=== PATIENT | male | born 1945 | race Caucasian/White ===

== ENCOUNTER 2017-09-22 14:18 | Inpatient (IN) | payer MEDICAID, MEDICARE ==
--- NOTE | 2017-09-22 14:29 | ED Physician Chart ---
ED Chief Complaint/HPI - Patient Information Date Seen:: 09/22/17 Time Seen:: 14:15 Chief Complaint:: Agitation History of Present Illness:: onset x 3 days of agitation, confusion, and aggressive behavior; no report of trauma, H/As, S/T, neck pain, C/P, SOB, Abd. pain, A/N/V/D/C, fever, chills, or urinary s/s Historian:: Patient, EMS Review:: Nurse's Note Reviewed, Old Chart Reviewed, EMS run form Reviewed ED Review of Systems - Review of Systems General/Constitutional: No fever, No chills, No weight loss, No weakness, No diaphoresis, No edema, No loss of appetite Skin: No skin lesions, No rash, No bruising Head: No headache, No light-headedness Eyes: No loss of vision, No pain, No diplopia ENT: No earache, No nasal drainage, No sore throat, No tinnitus Neck: No neck pain, No swelling, No thyromegaly, No stiffness, No mass noted Cardio Vascular: No chest pain, No palpitations, No PND, No orthopnea, No edema Pulmonary: No SOB, No cough, No sputum, No wheezing GI: No nausea, No vomiting, No diarrhea, No pain, No melena, No hematochezia, No constipation, No hematemesis G/U: No dysuria, No frequency, No hematuria, No nacturia Musculoskeletal: No bone or joint pain, No back pain, No muscle pain Endocrine: No polyuria, No polydipsia Psychiatric: Prior psych history, No depression, Anxiety, No suicidal ideation, No homicidal ideation, No auditory hallucination, No visual hallucination Hematopoietic: No bruising, No lymphadenopathy Allergic/Immuno: No urticaria, No angioedema Neurological: No syncope, No focal symptoms, No weakness, No paresthesia, No headache, No seizure, No dizziness, No confusion, No vertigo ED Past Medical History - Past Medical History Obtainable: Yes Past Medical History: HTN, Arthritis, Dementia Family History: HTN Social History: Non Smoker, No Alcohol, No Drug Use, Single, Care Facility Surgical History: None Psychiatricy History: Bipolar, Dementia Medication: Reviewed ED Physical Exam - Physical Examination General/Constitutional: Awake, Well-developed, well-nourished, Alert, No distress, GCS 15, Non-toxic appearing, Ambulatory Head: Atraumatic Eyes: Lids, conjuctiva normal, PERRL, EOMI Skin: Nl inspection, No rash, No skin lesions, No ecchymosis, Well hydrated, No lymphadenopathy ENMT: External ears, nose nl, TM canals nl, Nasal exam nl, Lips, teeth, gums nl , Oropharynx nl, Tonsils nl Neck: Nontender, Full ROM w/o pain, No JVD, No nuchal rigidity, No bruit, No mass, No stridor Respiratory: Nl effort/Exclusion, Clear to Auscultation, No Wheeze/Rhonchi/Rales Cardio Vascular: RRR, No murmur, gallop, rubs, NL S1 S2, Carotid/Femoral/Distal pulses equal bilaterally GI: No tenderness/rebounding/guarding, No organomegaly, No hernia, Normal BS's, Nondistended, No mass/bruits, No McBurney tenderness : No CVA tenderness Extremities: No tenderness or effusion, Full ROM, normal strength in all extremities, No edema, Normal digits & nails Neuro/Psych: Alert/oriented, DTR's symmetric, Normal sensory exam, Normal motor strength, Judgement/insight normal, Mood normal, Normal gait, No focal deficits Other Neuro/Psych comments:: + Psychomotor Agitation; no SIs; Disoriented and Confused; Mood/Affect: Labile Misc: Normal back, No paraspinal tenderness ED Labs/Radiology/EKG Results - Lab Results Comments:: unremarkabke - EKG Interpretations EKG Time:: 14:37 Rate & Rhythm: 84; NSR Comments:: RBBB; non-specific st-t changes ED Septic Shock - . Is Septic Shock (SBP<90, OR Lactate>4 mmol\L) present?: No ED Reassessment (Disposition) - Reassessment Reassessment Condition:: Improved - Diagnosis Diagnosis:: Agitation; Bipolar Disorder; Dementia; Medical Clearance - Aftercare/Follow up Instructions Aftercare/Follow-Up Instructions:: Counseled pt regarding lab results/diagnosis & need follow up, Counseled pt & family regarding lab results/diagnosis & need follow up - Patient Disposition Discharge/Transfer:: Acute Care w/in this hosp Admitted to:: [facility] Condition at Disposition:: Stable, Improved
[2017-09-22 14:46] LABS: % BASOPHILS 0.3 % (0.0-2.0); % EOSINOPHILS 1.5 % (0.0-5.0); % LYMPHOCYTES 8.3 % (20.0-50.0); % MONOCYTES 8.5 % (2.0-10.0); % NEUTROPHILS 81.4 % (40.0-80.0); EOSINOPHILE ABSOLUTE 0.1 Th/cmm (0.1-0.4); HEMATOCRIT 42.4 % (41.0-60); HEMOGLOBIN 13.8 gm/dL (12-16); LYMPHOCYTE ABSOLUTE 0.7 Th/cmm (1.5-3.0); MEAN CELL VOLUME 87.1 fl (80-99); MEAN CORPUSCULAR HEMOGLOBIN 28.3 pg (27.0-31.0); MEAN CORPUSCULAR HGB CONC 32.5 pg (28.0-36.0); MEAN PLATELET VOLUME 6.9 fl; MONOCYTE ABSOLUTE 0.8 Th/cmm (0.3-1.0); NEUTROPHILE ABSOLUTE 7.4 Th/cmm (1.8-8.0); PLATELET COUNT 249 Th/cmm (150-400); RED BLOOD COUNT 4.87 Mil/cmm (3.80-5.80); RED CELL DISTRIBUTION WIDTH 15.5 % (11.5-20.0)
[2017-09-22 15:01] LABS: ALB/GLOB RATIO 1.6 (1.0-1.8); ALBUMIN 4.2 gm/dL (4.2-5.5); ALKALINE PHOSPHATASE 74 U/L (34-104); ANION GAP 12.2 (7.0-16.0); BILIRUBIN,TOTAL 0.5 mg/dL (0.3-1.0); BUN - UREA NITROGEN 19 mg/dL (7-25); CALCIUM SERUM 9.5 mg/dL (8.6-10.3); CARBON DIOXIDE 29.1 mEq/L (21.0-31.0); CHLORIDE 100 mEq/L (98-107); CHOLESTEROL 128 mg/dL (<200); CREATININE - SERUM 0.8 mg/dL (0.7-1.3); GLUCOSE 75 mg/dL (70-105); HDL -HIGH DENSITY LIPOPROTEIN 49 mg/dL (23-92); POTASSIUM SERUM 4.3 mEq/L (3.5-5.1); SGOT 19 U/L (13-39); SGPT/ALT 16 U/L (7-52); SODIUM SERUM 137 mEq/L (136-145); TOTAL PROTEIN,SERUM 6.8 gm/dL (6.0-8.3); TRIGLYCERIDES 100 mg/dL (<150)
[2017-09-22 15:17] LABS: ACETAMINOPHEN < 10.0 ug/mL (10.0-30.0); SALICYLATES (ASPIRIN) < 25.0 mg/L (30.0-100.0)
[2017-09-22 16:12] LABS: A1C % 4.9 % (4.0-6.0)
[2017-09-22 16:25] VITALS: BP 136/66
[2017-09-22] MEDS ORDERED: Maalox 30 mL Cup PO PRN (16:55)
[2017-09-22] MEDS ORDERED: Magnesium Hydroxide (MOM) 30 mL UDC PO PRN ×2 (16:55→22:07)
[2017-09-22] MEDS ORDERED: Non-Formulary Item 1 EA (Glipizide [Glucotrol] 10 MG) PO SCH (17:00)
[2017-09-22] MEDS ORDERED: Non-Formulary Item 1 EA (Metformin Hcl [Fortamet] 1,000 MG) PO SCH (17:00)
--- NOTE | 2017-09-22 22:48 | History & Physical ---
ADMIT DATE: 09/22/2017 HISTORY OF PRESENT ILLNESS: The patient is a 71-year-old male with long history of diabetes mellitus, gouty arthritis, dementia, psychosis, admitted to [facility] under Dr. Ji's service. The patient is a poor historian. PAST MEDICAL HISTORY: Significant for diabetes mellitus, gouty arthritis, dementia and psychosis. PAST SURGICAL HISTORY: No recent surgery. ALLERGIES: RISPERDAL. SOCIAL HISTORY: No smoking, no alcohol, no drug. FAMILY HISTORY: Noncontributory. MEDICATIONS: Follow admission reconciliation. REVIEW OF SYSTEMS: RENAL SYSTEM: No history of chronic renal disorder. CARDIOVASCULAR SYSTEM: No coronary artery disease. ENDOCRINE SYSTEM: History of diabetes mellitus. GASTROINTESTINAL SYSTEM: No upper or lower gastrointestinal bleed. NEUROLOGICAL SYSTEM: No seizure disorder. MUSCULOSKELETAL SYSTEM: He has gouty arthritis. HEMATOLOGICAL: No bleeding tendencies. RESPIRATORY SYSTEM: No asthma. GENITOURINARY SYSTEM: No dysuria or hematuria. PHYSICAL EXAMINATION: GENERAL: He is awake, not coherent. VITAL SIGNS: His temperature is 98.1, heart rate 91, blood pressure 136/66. HEENT: Normocephalic. Pupils reactive to light and accommodation. Sclerae clear. NECK: Supple. Negative for lymphadenopathy, JVD or bruit. CHEST: Entry of air bilaterally normal. No rhonchi or wheezing. HEART: S1, S2 normal. No gallop rhythm. ABDOMEN: Soft, bowel sounds positive. EXTREMITIES: No edema. NEUROLOGIC: He is awake, not coherent. No focal motor or sensory deficit. LABORATORY DATA: White blood cell 9, hemoglobin 13.8, hematocrit 42.4, platelet 249. Sodium 137, potassium 4.3, BUN 90, creatinine 0.8. ASSESSMENT: 1. Diabetes mellitus. 2. Gouty arthritis. 3. Dementia. 4. Psychosis. PLAN: The patient admitted to the hospital under Dr. Ji's service. MEDICAL PROBLEMS ADDRESSED DURING HOSPITALIZATION: Psychosis, dementia. MEDICAL PROBLEMS ADDRESSED AT DISCHARGE: Diabetes mellitus, gouty arthritis. The patient is medically stable for activity. Thank Dr. Ji for asking me to see your patient. JOB# [id number]
[2017-09-23] MEDS ORDERED: PIOGLITAZONE HCL 45 MG PO SCH (09:00)
[2017-09-23] MEDS ORDERED: Non-Formulary Item 1 EA (Multivitamin [Multivitamins] 1 CAP) PO SCH (09:00)
[2017-09-23] MEDS ORDERED: ALLOPURINOL 300 MG PO SCH (09:00)
[2017-09-23] MEDS ORDERED: ARIPIPRAZOLE 30 MG PO SCH (09:00)
[2017-09-23] MEDS: Multivitamin Tab PO SCH (09:10)
--- NOTE | 2017-09-23 22:21 | Internal Medicine Prog Note ---
Internal Medicine Subjective - Subjective Service Date: 09/23/17 Patient seen and examined:: with staff Patient is:: arousable, in bed, confused Per staff patient has:: no adverse event Internal Medicine Objective - Results Result Diagrams: 09/22/17 14:35 09/22/17 14:35 Recent Labs: Laboratory Last Values WBC 9.0 Th/cmm (4.8-10.8) 09/22/17 14:35 RBC 4.87 Mil/cmm (3.80-5.80) 09/22/17 14:35 Hgb 13.8 gm/dL (12-16) 09/22/17 14:35 Hct 42.4 % (41.0-60) 09/22/17 14:35 MCV 87.1 fl (80-99) 09/22/17 14:35 MCH 28.3 pg (27.0-31.0) 09/22/17 14:35 MCHC Differential 32.5 pg (28.0-36.0) 09/22/17 14:35 RDW 15.5 % (11.5-20.0) 09/22/17 14:35 Plt Count 249 Th/cmm (150-400) 09/22/17 14:35 MPV 6.9 fl 09/22/17 14:35 Neutrophils % 81.4 % (40.0-80.0) H 09/22/17 14:35 Lymphocytes % 8.3 % (20.0-50.0) L 09/22/17 14:35 Monocytes % 8.5 % (2.0-10.0) 09/22/17 14:35 Eosinophils % 1.5 % (0.0-5.0) 09/22/17 14:35 Basophils % 0.3 % (0.0-2.0) 09/22/17 14:35 Sodium 137 mEq/L (136-145) 09/22/17 14:35 Potassium 4.3 mEq/L (3.5-5.1) 09/22/17 14:35 Chloride 100 mEq/L (98-107) 09/22/17 14:35 Carbon Dioxide 29.1 mEq/L (21.0-31.0) 09/22/17 14:35 Anion Gap 12.2 (7.0-16.0) 09/22/17 14:35 BUN 19 mg/dL (7-25) 09/22/17 14:35 Creatinine 0.8 mg/dL (0.7-1.3) 09/22/17 14:35 Est GFR ( Amer) TNP 09/22/17 14:35 Est GFR (Non-Af Amer) TNP 09/22/17 14:35 BUN/Creatinine Ratio 23.8 09/22/17 14:35 Glucose 75 mg/dL (70-105) 09/22/17 14:35 POC Glucose 92 MG/DL (70 - 105) 09/23/17 20:54 Hemoglobin A1c % 4.9 % (4.0-6.0) 09/22/17 14:35 Calcium 9.5 mg/dL (8.6-10.3) 09/22/17 14:35 Total Bilirubin 0.5 mg/dL (0.3-1.0) 09/22/17 14:35 AST 19 U/L (13-39) 09/22/17 14:35 ALT 16 U/L (7-52) 09/22/17 14:35 Alkaline Phosphatase 74 U/L (34-104) 09/22/17 14:35 Total Protein 6.8 gm/dL (6.0-8.3) 09/22/17 14:35 Albumin 4.2 gm/dL (4.2-5.5) 09/22/17 14:35 Globulin 2.6 gm/dL 09/22/17 14:35 Albumin/Globulin Ratio 1.6 (1.0-1.8) 09/22/17 14:35 Triglycerides 100 mg/dL (<150) 09/22/17 14:35 Cholesterol 128 mg/dL (<200) 09/22/17 14:35 LDL Cholesterol Direct 74 mg/dL (75-193) L 09/22/17 14:35 HDL Cholesterol 49 mg/dL (23-92) 09/22/17 14:35 TSH 1.28 uIU/ml (0.34-5.60) 09/22/17 14:35 Salicylates < 25.0 mg/L (30.0-100.0) L 09/22/17 14:35 Acetaminophen < 10.0 ug/mL (10.0-30.0) L 09/22/17 14:35 Ethyl Alcohol < 10 mg/dL (0-10) 09/22/17 14:35 - Physical Exam Vitals and I&O: Vital Signs Temp 99.8 F 09/23/17 21:23 Pulse 100 09/23/17 21:23 Resp 19 09/23/17 21:23 BP 136/79 09/23/17 21:23 Pulse Ox 95 09/23/17 21:23 Intake & Output 09/23/17 09/23/17 09/24/17 06:59 18:59 06:59 Intake Total 300 1200 120 Balance 300 1200 120 Intake: Oral 300 1200 120 Other: # Voids 1 3 1 # Bowel Movements 0 0 Active Medications: Current Medications Acetaminophen (Tylenol) 650 mg PO Q4HR PRN PRN Reason: Mild Pain / Temp above 100 Stop: 11/21/17 16:54 Al Hydrox/Mg Hydrox/Simethicone (Maalox) 30 ml PO Q4HR PRN PRN Reason: GI DISTRESS Stop: 11/21/17 16:54 Allopurinol (Zyloprim) 300 mg PO DAILY [facility] Stop: 11/22/17 08:59 Last Admin: 09/23/17 09:10 Dose: 300 mg Aripiprazole (Abilify) 30 mg PO HS [facility] PRN Reason: Protocol Stop: 11/23/17 20:59 Chlorpromazine (Thorazine) 75 mg PO HS SH[facility]IA PRN Reason: Protocol Stop: 11/21/17 20:59 Last Admin: 09/23/17 20:56 Dose: 75 mg Docusate Sodium (Colace) 250 mg PO DAILY [facility] Stop: 11/22/17 08:59 Last Admin: 09/23/17 09:10 Dose: 250 mg Fluoxetine HCl (Prozac) 20 mg PO DAILY [facility] PRN Reason: Protocol Stop: 11/22/17 08:59 Last Admin: 09/23/17 09:10 Dose: 20 mg Gabapentin (Neurontin) 100 mg PO TID [facility] Stop: 11/21/17 20:59 Last Admin: 09/23/17 20:56 Dose: 100 mg Glipizide (Glucotrol) 10 mg PO BID [facility] Stop: 11/22/17 08:59 Last Admin: 09/23/17 17:36 Dose: 10 mg Lorazepam (Ativan) 0.5 mg PO Q4HR PRN; Protocol PRN Reason: Anxiety Stop: 10/22/17 16:54 Magnesium Hydroxide (Milk Of Magnesia) 30 ml PO HS PRN PRN Reason: IF ORDERED STOOL SOFTENERS INE Stop: 11/21/17 22:06 Metformin HCl (Glucophage) 1,000 mg PO BID [facility] Stop: 11/22/17 08:59 Last Admin: 09/23/17 17:36 Dose: 1,000 mg Multivitamins/Vitamin C (Theragran) 1 tab PO DAILY [facility] Stop: 11/22/17 08:59 Last Admin: 09/23/17 09:10 Dose: 1 tab Pioglitazone HCl (Actos) 45 mg PO DAILY [facility] Stop: 11/22/17 08:59 Last Admin: 09/23/17 09:10 Dose: 45 mg Quetiapine Fumarate (Seroquel) 300 mg PO HS [facility] PRN Reason: Protocol Stop: 11/21/17 20:59 Last Admin: 09/23/17 20:56 Dose: 300 mg Trihexyphenidyl HCl (Artane) 2 mg PO BID [facility] Stop: 11/21/17 16:59 Last Admin: 09/23/17 17:36 Dose: 2 mg Zolpidem Tartrate (Ambien) 5 mg PO HS PRN PRN Reason: Insomnia Stop: 11/21/17 16:54 General: demented HEENT: NC/AT, PERRLA, EOMI, anicteric sclerae, throat clear Neck: Supple, No JVD, No thyromegaly, +2 carotid pulse wo bruit Lungs: CTAB Cardiovascular: RRR, Normal S1, Normal S2, without murmur Abdomen: soft, non-tender, non-distended Extremities: clear Neurological: no change - Procedures Procedures: Procedures Procedure Code Date BRONCHOSCOPY/LUNG BX EACH 19072 05/01/01 C.A.T. SCAN OF HEAD 87.03 09/16/95 CLOSED ENDOSCOPIC BIOPSY OF LUNG 33.27 05/01/01 DX BRONCHOSCOPE/BRUSH [id number] 05/01/01 ELECTROCARDIOGRAPH MONIT 89.54 09/16/95 ENDOSCOPIC BRONCHIAL BX 33.24 05/01/01 EXC H-F-NK-SP B9+SADE 2.1-3 79838 08/08/[address] [facility] PSYCHOTHERAPY 25008 12/15/01 NASAL LACERATION SUTURE 21.81 09/16/95 OTHER GROUP THERAPY 94.44 12/15/01 OTHER LOCAL DESTRUC SKIN 86.3 08/08/99 OXYGEN ENRICHMENT NEC 93.96 09/16/95 PHYSICAL THERAPY NEC 93.39 09/16/95 RPR F/E/E/N/L/M 2.5 CM/< 59207 09/16/95 Internal Medicine Assmt/Plan - Assessment Assessment: 1.DM. 2.GOUTY ARTHRITIS. 3.DEMENTIA. 4.PSYCHOSIS. - Plan Plan: CONTINUE ON CURRENT MEDICATION AND DIET.
--- NOTE | 2017-09-24 04:17 | Psychosocial Evaluation ---
DATE OF SERVICE: 09/22/2017 PSYCHIATRIC INITIAL EVALUATION AND MENTAL STATUS EXAMINATION PATIENT'S AGE: 71-year-old. SEX: Male. PHYSICIAN: Opal Ji MD, MPH CHIEF COMPLAINT: Agitation and aggressive behavior. HISTORY OF PRESENT ILLNESS: The patient is a 71-year-old male with a history of what seems to be a schizoaffective disorder. The patient was transferred from [facility] because of increased agitation and because of irritable and aggressive behavior. The patient also was unable to follow any of staff directions in [facility]. He also was in angry and in irritable mood. PAST PSYCHIATRIC HISTORY: The patient has history of schizoaffective disorder. The patient has been taking Seroquel and Prozac and Haldol. Also, is taking Thorazine and Abilify. It is not clear to me why the patient is on too many antipsychotic medications at this time. PAST MEDICAL HISTORY: No major medical problems. FAMILY PSYCHIATRIC HISTORY: Not known. SOCIAL HISTORY: The patient lives in [facility]. No known alcohol or drug use. ALLERGIES: No known allergies except questionable if the patient is allergic to Risperdal. MENTAL STATUS EXAMINATION: The patient appears older than his stated age. Confused. Unable to answer any of my questions coherently. The patient is mumbling when I am asking questions and he is looking and staring at me and seems to be responding to stimuli. The patient is agitated and preoccupied. The patient is alert, but did not answer question regarding memory or could not even tell me his birthday or the date and seems to be disoriented to place, person and date. ASSESSMENT: PRIMARY DIAGNOSIS: Schizoaffective disorder, bipolar type, severe, with psychotic features. SECONDARY DIAGNOSIS: Rule out dementia, severe, with psychotic features. MEDICAL DIAGNOSES: Diabetes mellitus and gouty arthritis. TREATMENT PLAN: We will monitor the patient's behavior and condition closely. We will discontinue Risperdal and we will continue Thorazine, Prozac, gabapentin and Seroquel and we will adjust the dose. Also, we will try to take the patient off Thorazine after further evaluation and observation. ESTIMATED LENGTH OF STAY: 5-7 days. THE PATIENT'S STRENGTHS AND WEAKNESSES: The patient's seems to be in relatively fair health. Weaknesses is ineffective coping and poor impulse control. AFTER DISCHARGE PLAN: Outpatient treatment and followup will continue as an outpatient. CRITERIA FOR DISCHARGE: The patient will not be agitated and well stabilized psychotropic medications and well established outpatient treatment plans. [facility]# [id number]
[2017-09-24] MEDS: Multivitamin Tab PO SCH (08:59)
--- NOTE | 2017-09-24 21:03 | Internal Medicine Prog Note ---
Internal Medicine Subjective - Subjective Service Date: 09/24/17 Patient seen and examined:: with staff (SHE IS LESS AGITATED) Patient is:: arousable, in bed, confused Per staff patient has:: no adverse event Internal Medicine Objective - Results Result Diagrams: 09/22/17 14:35 09/22/17 14:35 Recent Labs: Laboratory Last Values WBC 9.0 Th/cmm (4.8-10.8) 09/22/17 14:35 RBC 4.87 Mil/cmm (3.80-5.80) 09/22/17 14:35 Hgb 13.8 gm/dL (12-16) 09/22/17 14:35 Hct 42.4 % (41.0-60) 09/22/17 14:35 MCV 87.1 fl (80-99) 09/22/17 14:35 MCH 28.3 pg (27.0-31.0) 09/22/17 14:35 MCHC Differential 32.5 pg (28.0-36.0) 09/22/17 14:35 RDW 15.5 % (11.5-20.0) 09/22/17 14:35 Plt Count 249 Th/cmm (150-400) 09/22/17 14:35 MPV 6.9 fl 09/22/17 14:35 Neutrophils % 81.4 % (40.0-80.0) H 09/22/17 14:35 Lymphocytes % 8.3 % (20.0-50.0) L 09/22/17 14:35 Monocytes % 8.5 % (2.0-10.0) 09/22/17 14:35 Eosinophils % 1.5 % (0.0-5.0) 09/22/17 14:35 Basophils % 0.3 % (0.0-2.0) 09/22/17 14:35 Sodium 137 mEq/L (136-145) 09/22/17 14:35 Potassium 4.3 mEq/L (3.5-5.1) 09/22/17 14:35 Chloride 100 mEq/L (98-107) 09/22/17 14:35 Carbon Dioxide 29.1 mEq/L (21.0-31.0) 09/22/17 14:35 Anion Gap 12.2 (7.0-16.0) 09/22/17 14:35 BUN 19 mg/dL (7-25) 09/22/17 14:35 Creatinine 0.8 mg/dL (0.7-1.3) 09/22/17 14:35 Est GFR ( Amer) TNP 09/22/17 14:35 Est GFR (Non-Af Amer) TNP 09/22/17 14:35 BUN/Creatinine Ratio 23.8 09/22/17 14:35 Glucose 75 mg/dL (70-105) 09/22/17 14:35 POC Glucose 92 MG/DL (70 - 105) 09/23/17 20:54 Hemoglobin A1c % 4.9 % (4.0-6.0) 09/22/17 14:35 Calcium 9.5 mg/dL (8.6-10.3) 09/22/17 14:35 Total Bilirubin 0.5 mg/dL (0.3-1.0) 09/22/17 14:35 AST 19 U/L (13-39) 09/22/17 14:35 ALT 16 U/L (7-52) 09/22/17 14:35 Alkaline Phosphatase 74 U/L (34-104) 09/22/17 14:35 Total Protein 6.8 gm/dL (6.0-8.3) 09/22/17 14:35 Albumin 4.2 gm/dL (4.2-5.5) 09/22/17 14:35 Globulin 2.6 gm/dL 09/22/17 14:35 Albumin/Globulin Ratio 1.6 (1.0-1.8) 09/22/17 14:35 Triglycerides 100 mg/dL (<150) 09/22/17 14:35 Cholesterol 128 mg/dL (<200) 09/22/17 14:35 LDL Cholesterol Direct 74 mg/dL (75-193) L 09/22/17 14:35 HDL Cholesterol 49 mg/dL (23-92) 09/22/17 14:35 TSH 1.28 uIU/ml (0.34-5.60) 09/22/17 14:35 Salicylates < 25.0 mg/L (30.0-100.0) L 09/22/17 14:35 Acetaminophen < 10.0 ug/mL (10.0-30.0) L 09/22/17 14:35 Ethyl Alcohol < 10 mg/dL (0-10) 09/22/17 14:35 - Physical Exam Vitals and I&O: Vital Signs Temp 97.9 F 09/24/17 20:00 Pulse 94 09/24/17 20:00 Resp 19 09/24/17 20:00 BP 115/55 09/24/17 20:00 Pulse Ox 98 09/24/17 20:00 Intake & Output 09/24/17 09/24/17 09/25/17 06:59 18:59 06:59 Intake Total 180 1800 Balance 180 1800 Intake: Oral 180 1800 Other: # Voids 1 4 # Bowel Movements 0 1 Active Medications: Current Medications Acetaminophen (Tylenol) 650 mg PO Q4HR PRN PRN Reason: Mild Pain / Temp above 100 Stop: 11/21/17 16:54 Last Admin: 09/24/17 06:09 Dose: 650 mg Al Hydrox/Mg Hydrox/Simethicone (Maalox) 30 ml PO Q4HR PRN PRN Reason: GI DISTRESS Stop: 11/21/17 16:54 Allopurinol (Zyloprim) 300 mg PO DAILY [facility] Stop: 11/22/17 08:59 Last Admin: 09/24/17 08:59 Dose: 300 mg Aripiprazole (Abilify) 30 mg PO HS SHAZIA PRN Reason: Protocol Stop: 11/23/17 20:59 Last Admin: 09/24/17 20:55 Dose: 30 mg Docusate Sodium (Colace) 250 mg PO DAILY [facility] Stop: 11/22/17 08:59 Last Admin: 09/24/17 08:59 Dose: 250 mg Fluoxetine HCl (Prozac) 20 mg PO DAILY [facility] PRN Reason: Protocol Stop: 11/22/17 08:59 Last Admin: 09/24/17 08:58 Dose: 20 mg Gabapentin (Neurontin) 100 mg PO TID [facility] Stop: 11/21/17 20:59 Last Admin: 09/24/17 20:55 Dose: 100 mg Glipizide (Glucotrol) 10 mg PO BID [facility] Stop: 11/22/17 08:59 Last Admin: 09/24/17 16:38 Dose: 10 mg Lorazepam (Ativan) 0.5 mg PO Q4HR PRN; Protocol PRN Reason: Anxiety Stop: 10/22/17 16:54 Last Admin: 09/24/17 06:09 Dose: 0.5 mg Magnesium Hydroxide (Milk Of Magnesia) 30 ml PO HS PRN PRN Reason: IF ORDERED STOOL SOFTENERS INE Stop: 11/21/17 22:06 Metformin HCl (Glucophage) 1,000 mg PO BID [facility] Stop: 11/22/17 08:59 Last Admin: 09/24/17 16:38 Dose: 1,000 mg Multivitamins/Vitamin C (Theragran) 1 tab PO DAILY [facility] Stop: 11/22/17 08:59 Last Admin: 09/24/17 08:59 Dose: 1 tab Pioglitazone HCl (Actos) 45 mg PO DAILY [facility] Stop: 11/22/17 08:59 Last Admin: 09/24/17 08:58 Dose: 45 mg Quetiapine Fumarate (Seroquel) 300 mg PO HS [facility] PRN Reason: Protocol Stop: 11/21/17 20:59 Last Admin: 09/24/17 20:55 Dose: 300 mg Trihexyphenidyl HCl (Artane) 2 mg PO TID [facility] Stop: 11/23/17 08:59 Last Admin: 09/24/17 20:56 Dose: 2 mg Zolpidem Tartrate (Ambien) 5 mg PO HS PRN PRN Reason: Insomnia Stop: 11/21/17 16:54 General: demented HEENT: NC/AT, PERRLA, EOMI, anicteric sclerae, throat clear Neck: Supple, No JVD, No thyromegaly, +2 carotid pulse wo bruit Lungs: CTAB Cardiovascular: RRR, Normal S1, Normal S2, without murmur Abdomen: soft, non-tender, non-distended Extremities: clear Neurological: no change - Procedures Procedures: Procedures Procedure Code Date BRONCHOSCOPY/LUNG BX EACH 58317 05/01/01 C.A.T. SCAN OF HEAD 87.03 09/16/95 CLOSED ENDOSCOPIC BIOPSY OF LUNG 33.27 05/01/01 DX BRONCHOSCOPE/BRUSH 04888 05/01/01 ELECTROCARDIOGRAPH MONIT 89.54 09/16/95 ENDOSCOPIC BRONCHIAL BX 33.24 05/01/01 EXC H-F-NK-SP B9+SADE 2.1-3 11534 08/08/99 [facility] PSYCHOTHERAPY 86596 12/15/01 NASAL LACERATION SUTURE 21.81 09/16/95 OTHER GROUP THERAPY 94.44 12/15/01 OTHER LOCAL DESTRUC SKIN 86.3 08/08/99 OXYGEN ENRICHMENT NEC 93.96 09/16/95 PHYSICAL THERAPY NEC 93.39 09/16/95 RPR F/E/E/N/L/M 2.5 CM/< 18238 09/16/95 Internal Medicine Assmt/Plan - Assessment Assessment: 1.DM. 2.GOUTY ARTHRITIS. 3.DEMENTIA. 4.PSYCHOSIS. - Plan Plan: CONTINUE ON CURRENT MEDICATION AND DIET.
[2017-09-25] MEDS: Multivitamin Tab PO SCH (08:35)
--- NOTE | 2017-09-25 22:07 | Internal Medicine Prog Note ---
Internal Medicine Subjective - Subjective Service Date: 09/25/17 Patient seen and examined:: with staff Patient is:: arousable, in bed, confused Per staff patient has:: no adverse event Internal Medicine Objective - Results Result Diagrams: 09/22/17 14:35 09/22/17 14:35 Recent Labs: Laboratory Last Values WBC 9.0 Th/cmm (4.8-10.8) 09/22/17 14:35 RBC 4.87 Mil/cmm (3.80-5.80) 09/22/17 14:35 Hgb 13.8 gm/dL (12-16) 09/22/17 14:35 Hct 42.4 % (41.0-60) 09/22/17 14:35 MCV 87.1 fl (80-99) 09/22/17 14:35 MCH 28.3 pg (27.0-31.0) 09/22/17 14:35 MCHC Differential 32.5 pg (28.0-36.0) 09/22/17 14:35 RDW 15.5 % (11.5-20.0) 09/22/17 14:35 Plt Count 249 Th/cmm (150-400) 09/22/17 14:35 MPV 6.9 fl 09/22/17 14:35 Neutrophils % 81.4 % (40.0-80.0) H 09/22/17 14:35 Lymphocytes % 8.3 % (20.0-50.0) L 09/22/17 14:35 Monocytes % 8.5 % (2.0-10.0) 09/22/17 14:35 Eosinophils % 1.5 % (0.0-5.0) 09/22/17 14:35 Basophils % 0.3 % (0.0-2.0) 09/22/17 14:35 Sodium 137 mEq/L (136-145) 09/22/17 14:35 Potassium 4.3 mEq/L (3.5-5.1) 09/22/17 14:35 Chloride 100 mEq/L (98-107) 09/22/17 14:35 Carbon Dioxide 29.1 mEq/L (21.0-31.0) 09/22/17 14:35 Anion Gap 12.2 (7.0-16.0) 09/22/17 14:35 BUN 19 mg/dL (7-25) 09/22/17 14:35 Creatinine 0.8 mg/dL (0.7-1.3) 09/22/17 14:35 Est GFR ( Amer) TNP 09/22/17 14:35 Est GFR (Non-Af Amer) TNP 09/22/17 14:35 BUN/Creatinine Ratio 23.8 09/22/17 14:35 Glucose 75 mg/dL (70-105) 09/22/17 14:35 POC Glucose 92 MG/DL (70 - 105) 09/23/17 20:54 Hemoglobin A1c % 4.9 % (4.0-6.0) 09/22/17 14:35 Calcium 9.5 mg/dL (8.6-10.3) 09/22/17 14:35 Total Bilirubin 0.5 mg/dL (0.3-1.0) 09/22/17 14:35 AST 19 U/L (13-39) 09/22/17 14:35 ALT 16 U/L (7-52) 09/22/17 14:35 Alkaline Phosphatase 74 U/L (34-104) 09/22/17 14:35 Total Protein 6.8 gm/dL (6.0-8.3) 09/22/17 14:35 Albumin 4.2 gm/dL (4.2-5.5) 09/22/17 14:35 Globulin 2.6 gm/dL 09/22/17 14:35 Albumin/Globulin Ratio 1.6 (1.0-1.8) 09/22/17 14:35 Triglycerides 100 mg/dL (<150) 09/22/17 14:35 Cholesterol 128 mg/dL (<200) 09/22/17 14:35 LDL Cholesterol Direct 74 mg/dL (75-193) L 09/22/17 14:35 HDL Cholesterol 49 mg/dL (23-92) 09/22/17 14:35 TSH 1.28 uIU/ml (0.34-5.60) 09/22/17 14:35 Salicylates < 25.0 mg/L (30.0-100.0) L 09/22/17 14:35 Acetaminophen < 10.0 ug/mL (10.0-30.0) L 09/22/17 14:35 Ethyl Alcohol < 10 mg/dL (0-10) 09/22/17 14:35 RPR NONREACTIVE (NONREACTIVE) 09/22/17 14:35 - Physical Exam Vitals and I&O: Vital Signs Temp 97.8 F 09/25/17 20:00 Pulse 90 09/25/17 20:00 Resp 20 09/25/17 20:00 BP 125/68 09/25/17 20:00 Pulse Ox 98 09/25/17 20:00 Intake & Output 09/25/17 09/25/17 09/26/17 06:59 18:59 06:59 Intake Total 120 1200 Balance 120 1200 Intake: Oral 120 1200 Other: # Voids 3 4 # Bowel Movements 1 Stool Characteristics Formed Formed Brown Brown Active Medications: Current Medications Acetaminophen (Tylenol) 650 mg PO Q4HR PRN PRN Reason: Mild Pain / Temp above 100 Stop: 11/21/17 16:54 Last Admin: 09/24/17 06:09 Dose: 650 mg Al Hydrox/Mg Hydrox/Simethicone (Maalox) 30 ml PO Q4HR PRN PRN Reason: GI DISTRESS Stop: 11/21/17 16:54 Allopurinol (Zyloprim) 300 mg PO DAILY [facility] Stop: 11/22/17 08:59 Last Admin: 09/25/17 08:34 Dose: 300 mg Aripiprazole (Abilify) 30 mg PO HS [facility] PRN Reason: Protocol Stop: 11/23/17 20:59 Last Admin: 09/25/17 20:45 Dose: 30 mg Docusate Sodium (Colace) 250 mg PO DAILY [facility] Stop: 11/22/17 08:59 Last Admin: 09/25/17 08:35 Dose: 250 mg Fluoxetine HCl (Prozac) 20 mg PO DAILY [facility] PRN Reason: Protocol Stop: 11/22/17 08:59 Last Admin: 09/25/17 08:35 Dose: 20 mg Gabapentin (Neurontin) 100 mg PO TID [facility] Stop: 11/21/17 20:59 Last Admin: 09/25/17 20:46 Dose: 100 mg Glipizide (Glucotrol) 10 mg PO BID [facility] Stop: 11/22/17 08:59 Last Admin: 09/25/17 16:19 Dose: 10 mg Lorazepam (Ativan) 0.5 mg PO Q4HR PRN; Protocol PRN Reason: Anxiety Stop: 10/22/17 16:54 Last Admin: 09/25/17 13:29 Dose: 0.5 mg Magnesium Hydroxide (Milk Of Magnesia) 30 ml PO HS PRN PRN Reason: IF ORDERED STOOL SOFTENERS INE Stop: 11/21/17 22:06 Metformin HCl (Glucophage) 1,000 mg PO BID [facility] Stop: 11/22/17 08:59 Last Admin: 09/25/17 16:19 Dose: 1,000 mg Multivitamins/Vitamin C (Theragran) 1 tab PO DAILY [facility] Stop: 11/22/17 08:59 Last Admin: 09/25/17 08:35 Dose: 1 tab Pioglitazone HCl (Actos) 45 mg PO DAILY [facility] Stop: 11/22/17 08:59 Last Admin: 09/25/17 08:35 Dose: 45 mg Quetiapine Fumarate (Seroquel) 300 mg PO HS [facility] PRN Reason: Protocol Stop: 11/21/17 20:59 Last Admin: 09/25/17 20:45 Dose: 300 mg Trihexyphenidyl HCl (Artane) 2 mg PO TID [facility] Stop: 11/23/17 08:59 Last Admin: 09/25/17 20:45 Dose: 2 mg Zolpidem Tartrate (Ambien) 5 mg PO HS PRN PRN Reason: Insomnia Stop: 11/21/17 16:54 General: demented HEENT: NC/AT, PERRLA, EOMI, anicteric sclerae, throat clear Neck: Supple, No JVD, No thyromegaly, +2 carotid pulse wo bruit Lungs: CTAB Cardiovascular: RRR, Normal S1, Normal S2, without murmur Abdomen: soft, non-tender, non-distended Extremities: clear Neurological: no change - Procedures Procedures: Procedures Procedure Code Date BRONCHOSCOPY/LUNG BX EACH 31442 05/01/01 C.A.T. SCAN OF HEAD 87.03 09/16/95 CLOSED ENDOSCOPIC BIOPSY OF LUNG 33.27 05/01/01 DX BRONCHOSCOPE/BRUSH 92985 05/01/01 ELECTROCARDIOGRAPH MONIT 89.54 09/16/95 ENDOSCOPIC BRONCHIAL BX 33.24 05/01/01 EXC H-F-NK-SP B9+SADE 2.1-3 47254 08/08/99 GROUP PSYCHOTHERAPY 21872 12/15/01 NASAL LACERATION SUTURE 21.81 09/16/95 OTHER GROUP THERAPY 94.44 12/15/01 OTHER LOCAL DESTRUC SKIN 86.3 08/08/99 OXYGEN ENRICHMENT NEC 93.96 09/16/95 PHYSICAL THERAPY NEC 93.39 09/16/95 RPR F/E/E/N/L/M 2.5 CM/< 55418 09/16/95 Internal Medicine Assmt/Plan - Assessment Assessment: 1.DM. 2.GOUTY ARTHRITIS. 3.DEMENTIA. 4.PSYCHOSIS. - Plan Plan: CONTINUE ON CURRENT MEDICATION AND DIET.
--- NOTE | 2017-09-26 07:48 | Progress Notes ---
DATE: 09/24/2017 SUBJECTIVE: Chart reviewed and the patient interviewed. Also discussed the patient's condition with the staff and reviewed records and labs. The patient is still agitated and guarded and the patient has been going up and down the unit with his wheelchair, regardless the safety of others. The patient also is still guarded and he is still unpredictable. Also, his anxiety is more during the day. Yesterday, the patient had to be given Ativan to calm him down during the day. Otherwise, the patient compliant with taking his medications except the patient is anxious during the day and seems to have akathisia. ASSESSMENT: The patient is still agitated and psychotic, but have akathisia. TREATMENT PLAN: We will discontinue Thorazine. Also continue Abilify and Seroquel. Also we will increase the Artane to 2 mg 3 times a day and will continue to follow up closely. JOB# [id number]
[2017-09-26] MEDS: Multivitamin Tab PO SCH (09:50)
--- NOTE | 2017-09-26 10:06 | Progress Notes ---
DATE: SUBJECTIVE: Chart reviewed and the patient interviewed. Also discussed the patient's condition with the staff and reviewed records and labs. The patient is still agitated and he is still having episodes of agitation and aggression. The patient also is still having difficulty following any of staff directions. The patient also is still suspicious and paranoid. Otherwise, the patient is compliant with taking Seroquel with no side effects. ASSESSMENT: The patient is still agitated and in irritable mood. TREATMENT PLAN: Continue monitoring his behavior and his condition closely and continue to follow up. JOB# [id number]
--- NOTE | 2017-09-26 19:47 | Internal Medicine Prog Note ---
Internal Medicine Subjective - Subjective Service Date: 09/26/17 Patient seen and examined:: without staff Patient is:: arousable, in bed, confused Per staff patient has:: no adverse event Internal Medicine Objective - Results Result Diagrams: 09/22/17 14:35 09/22/17 14:35 Recent Labs: Laboratory Last Values WBC 9.0 Th/cmm (4.8-10.8) 09/22/17 14:35 RBC 4.87 Mil/cmm (3.80-5.80) 09/22/17 14:35 Hgb 13.8 gm/dL (12-16) 09/22/17 14:35 Hct 42.4 % (41.0-60) 09/22/17 14:35 MCV 87.1 fl (80-99) 09/22/17 14:35 MCH 28.3 pg (27.0-31.0) 09/22/17 14:35 MCHC Differential 32.5 pg (28.0-36.0) 09/22/17 14:35 RDW 15.5 % (11.5-20.0) 09/22/17 14:35 Plt Count 249 Th/cmm (150-400) 09/22/17 14:35 MPV 6.9 fl 09/22/17 14:35 Neutrophils % 81.4 % (40.0-80.0) H 09/22/17 14:35 Lymphocytes % 8.3 % (20.0-50.0) L 09/22/17 14:35 Monocytes % 8.5 % (2.0-10.0) 09/22/17 14:35 Eosinophils % 1.5 % (0.0-5.0) 09/22/17 14:35 Basophils % 0.3 % (0.0-2.0) 09/22/17 14:35 Sodium 137 mEq/L (136-145) 09/22/17 14:35 Potassium 4.3 mEq/L (3.5-5.1) 09/22/17 14:35 Chloride 100 mEq/L (98-107) 09/22/17 14:35 Carbon Dioxide 29.1 mEq/L (21.0-31.0) 09/22/17 14:35 Anion Gap 12.2 (7.0-16.0) 09/22/17 14:35 BUN 19 mg/dL (7-25) 09/22/17 14:35 Creatinine 0.8 mg/dL (0.7-1.3) 09/22/17 14:35 Est GFR ( Amer) TNP 09/22/17 14:35 Est GFR (Non-Af Amer) TNP 09/22/17 14:35 BUN/Creatinine Ratio 23.8 09/22/17 14:35 Glucose 75 mg/dL (70-105) 09/22/17 14:35 POC Glucose 116 MG/DL (70-105) H 09/24/17 06:27 Hemoglobin A1c % 4.9 % (4.0-6.0) 09/22/17 14:35 Calcium 9.5 mg/dL (8.6-10.3) 09/22/17 14:35 Total Bilirubin 0.5 mg/dL (0.3-1.0) 09/22/17 14:35 AST 19 U/L (13-39) 09/22/17 14:35 ALT 16 U/L (7-52) 09/22/17 14:35 Alkaline Phosphatase 74 U/L (34-104) 09/22/17 14:35 Total Protein 6.8 gm/dL (6.0-8.3) 09/22/17 14:35 Albumin 4.2 gm/dL (4.2-5.5) 09/22/17 14:35 Globulin 2.6 gm/dL 09/22/17 14:35 Albumin/Globulin Ratio 1.6 (1.0-1.8) 09/22/17 14:35 Triglycerides 100 mg/dL (<150) 09/22/17 14:35 Cholesterol 128 mg/dL (<200) 09/22/17 14:35 LDL Cholesterol Direct 74 mg/dL (75-193) L 09/22/17 14:35 HDL Cholesterol 49 mg/dL (23-92) 09/22/17 14:35 TSH 1.28 uIU/ml (0.34-5.60) 09/22/17 14:35 Salicylates < 25.0 mg/L (30.0-100.0) L 09/22/17 14:35 Acetaminophen < 10.0 ug/mL (10.0-30.0) L 09/22/17 14:35 Ethyl Alcohol < 10 mg/dL (0-10) 09/22/17 14:35 RPR NONREACTIVE (NONREACTIVE) 09/22/17 14:35 - Physical Exam Vitals and I&O: Vital Signs Temp 98.0 F 09/26/17 14:00 Pulse 90 09/26/17 14:00 Resp 20 09/26/17 14:00 BP 130/56 09/26/17 14:00 Pulse Ox 98 09/26/17 14:00 Intake & Output 09/26/17 09/26/17 09/27/17 06:59 18:59 06:59 Intake Total 180 1200 Balance 180 1200 Intake: Oral 180 1200 Other: # Voids 2 # Bowel Movements 1 Stool Characteristics Formed Formed Brown Brown Active Medications: Current Medications Acetaminophen (Tylenol) 650 mg PO Q4HR PRN PRN Reason: Mild Pain / Temp above 100 Stop: 11/21/17 16:54 Last Admin: 09/24/17 06:09 Dose: 650 mg Al Hydrox/Mg Hydrox/Simethicone (Maalox) 30 ml PO Q4HR PRN PRN Reason: GI DISTRESS Stop: 11/21/17 16:54 Allopurinol (Zyloprim) 300 mg PO DAILY [facility] Stop: 11/22/17 08:59 Last Admin: 09/26/17 09:51 Dose: 300 mg Aripiprazole (Abilify) 30 mg PO HS [facility] PRN Reason: Protocol Stop: 11/23/17 20:59 Last Admin: 09/25/17 20:45 Dose: 30 mg Docusate Sodium (Colace) 250 mg PO DAILY [facility] Stop: 11/22/17 08:59 Last Admin: 09/26/17 09:51 Dose: 250 mg Fluoxetine HCl (Prozac) 20 mg PO DAILY [facility] PRN Reason: Protocol Stop: 11/22/17 08:59 Last Admin: 09/26/17 09:50 Dose: 20 mg Gabapentin (Neurontin) 100 mg PO TID [facility] Stop: 11/21/17 20:59 Last Admin: 09/26/17 17:22 Dose: Not Given Glipizide (Glucotrol) 10 mg PO BID [facility] Stop: 11/22/17 08:59 Last Admin: 09/26/17 17:20 Dose: 10 mg Lorazepam (Ativan) 0.5 mg PO Q4HR PRN; Protocol PRN Reason: Anxiety Stop: 10/22/17 16:54 Last Admin: 09/25/17 13:29 Dose: 0.5 mg Magnesium Hydroxide (Milk Of Magnesia) 30 ml PO HS PRN PRN Reason: IF ORDERED STOOL SOFTENERS INE Stop: 11/21/17 22:06 Metformin HCl (Glucophage) 1,000 mg PO BID [facility] Stop: 11/22/17 08:59 Last Admin: 09/26/17 17:20 Dose: 1,000 mg Multivitamins/Vitamin C (Theragran) 1 tab PO DAILY [facility] Stop: 11/22/17 08:59 Last Admin: 09/26/17 09:50 Dose: 1 tab Pioglitazone HCl (Actos) 45 mg PO DAILY [facility] Stop: 11/22/17 08:59 Last Admin: 09/26/17 09:50 Dose: 45 mg Quetiapine Fumarate (Seroquel) 300 mg PO HS [facility] PRN Reason: Protocol Stop: 11/21/17 20:59 Last Admin: 09/25/17 20:45 Dose: 300 mg Trihexyphenidyl HCl (Artane) 2 mg PO TID [facility] Stop: 11/23/17 08:59 Last Admin: 09/26/17 17:22 Dose: Not Given Zolpidem Tartrate (Ambien) 5 mg PO HS PRN PRN Reason: Insomnia Stop: 11/21/17 16:54 General: demented HEENT: NC/AT, PERRLA, EOMI, anicteric sclerae, throat clear Neck: Supple, No JVD, No thyromegaly, +2 carotid pulse wo bruit Lungs: CTAB Cardiovascular: RRR, Normal S1, Normal S2, without murmur Abdomen: soft, non-tender, non-distended Extremities: clear Neurological: no change - Procedures Procedures: Procedures Procedure Code Date BRONCHOSCOPY/LUNG BX EACH 79186 05/01/01 C.A.T. SCAN OF HEAD 87.03 09/16/95 CLOSED ENDOSCOPIC BIOPSY OF LUNG 33.27 05/01/01 DX BRONCHOSCOPE/BRUSH 80519 05/01/01 ELECTROCARDIOGRAPH MONIT 89.54 09/16/95 ENDOSCOPIC BRONCHIAL BX 33.24 05/01/01 EXC H-F-NK-SP B9+SADE 2.1-3 32416 08/08/99 GROUP PSYCHOTHERAPY 08270 12/15/01 NASAL LACERATION SUTURE 21.81 09/16/95 OTHER GROUP THERAPY 94.44 12/15/01 OTHER LOCAL DESTRUC SKIN 86.3 08/08/99 OXYGEN ENRICHMENT NEC 93.96 09/16/95 PHYSICAL THERAPY NEC 93.39 09/16/95 RPR F/E/E/N/L/M 2.5 CM/< 08998 09/16/95 Internal Medicine Assmt/Plan - Assessment Assessment: 1.DM. 2.GOUTY ARTHRITIS. 3.DEMENTIA. 4.PSYCHOSIS. - Plan Plan: CONTINUE ON CURRENT MEDICATION AND DIET.
--- NOTE | 2017-09-26 23:34 | Progress Notes ---
DATE: 09/26/[address] Ji. SUBJECTIVE: Case discussed with staff of the patient and reviewed records. This is a 71-year-old male who was admitted on 09/22/2017. He has a history of schizoaffective disorder, transferred from [facility] because of increasing agitation. He is irritable and aggressive. He is unable to follow staff direction. He was very angry with a history of schizoaffective disorder. PLAN: The patient upon admission was on too many antipsychotics. His current medications are allopurinol 300 mg daily, Abilify 30 mg at bedtime, Prozac 20 mg daily, Neurontin 100 mg 3 times a day, glipizide 10 mg twice a day, Ativan 0.5 mg every four hours as needed and metformin 1000 mg twice a day, multivitamin daily, Actos 45 mg daily, Seroquel 300 mg at bedtime, and Artane 2 mg 3 times a day. The patient continues to have episodes of irritability, aggression, continues to have difficulty following directions, continues to be suspicious, paranoid. No side effects with the medication, no sedation, no nausea, no extrapyramidal symptoms. He is a high fall risk. He is on multiple antipsychotics; however, Dr. Ji made them only 2. We will continue to work the patient in group therapy, milieu therapy, and adjust medications as needed. JOB# [id number]
[2017-09-27] MEDS: Multivitamin Tab PO SCH (09:53)
--- NOTE | 2017-09-27 21:56 | Progress Notes ---
DATE: 09/27/2017 IDENTIFYING DATA: A 71-year-old male presented here for agitation and aggressive behavior with a history of schizoaffective disorder. Nursing staff reported the patient to be disengaged, withdrawn, and minimally interactive. He is currently on Abilify 30 mg a day, Colace, fluoxetine 20 mg a day, gabapentin 100 mg p.o. t.i.d., glipizide, Ativan as needed, Glucophage, Actos, Seroquel at nighttime. Today on [id number] evaluation, the patient refuses interview. He mostly looks, wakes up and then he closes his eye. to validate his emotions. He continues to refuse to intervene. MENTAL STATUS EXAMINATION: Suspicious, paranoid. ASSESSMENT AND PLAN: The patient is a 71-year-old male who continues to be paranoid. We will continue with the current psychiatrist treatment plan and goals. He is currently into antipsychotics to target the patient's treatment, refractory. [facility]# [id number]
[2017-09-28] MEDS: Multivitamin Tab PO SCH (08:38)
--- NOTE | 2017-09-28 18:33 | General Progress Note ---
Subjective - Review of Systems Service Date: 09/28/17 Subjective: awake and alert no distress Objective - Results Result Diagrams: 09/22/17 14:35 09/22/17 14:35 Recent Labs: Laboratory Last Values WBC 9.0 Th/cmm (4.8-10.8) 09/22/17 14:35 RBC 4.87 Mil/cmm (3.80-5.80) 09/22/17 14:35 Hgb 13.8 gm/dL (12-16) 09/22/17 14:35 Hct 42.4 % (41.0-60) 09/22/17 14:35 MCV 87.1 fl (80-99) 09/22/17 14:35 MCH 28.3 pg (27.0-31.0) 09/22/17 14:35 MCHC Differential 32.5 pg (28.0-36.0) 09/22/17 14:35 RDW 15.5 % (11.5-20.0) 09/22/17 14:35 Plt Count 249 Th/cmm (150-400) 09/22/17 14:35 MPV 6.9 fl 09/22/17 14:35 Neutrophils % 81.4 % (40.0-80.0) H 09/22/17 14:35 Lymphocytes % 8.3 % (20.0-50.0) L 09/22/17 14:35 Monocytes % 8.5 % (2.0-10.0) 09/22/17 14:35 Eosinophils % 1.5 % (0.0-5.0) 09/22/17 14:35 Basophils % 0.3 % (0.0-2.0) 09/22/17 14:35 Sodium 137 mEq/L (136-145) 09/22/17 14:35 Potassium 4.3 mEq/L (3.5-5.1) 09/22/17 14:35 Chloride 100 mEq/L (98-107) 09/22/17 14:35 Carbon Dioxide 29.1 mEq/L (21.0-31.0) 09/22/17 14:35 Anion Gap 12.2 (7.0-16.0) 09/22/17 14:35 BUN 19 mg/dL (7-25) 09/22/17 14:35 Creatinine 0.8 mg/dL (0.7-1.3) 09/22/17 14:35 Est GFR ( Amer) TNP 09/22/17 14:35 Est GFR (Non-Af Amer) TNP 09/22/17 14:35 BUN/Creatinine Ratio 23.8 09/22/17 14:35 Glucose 75 mg/dL (70-105) 09/22/17 14:35 POC Glucose 116 MG/DL (70-105) H 09/24/17 06:27 Hemoglobin A1c % 4.9 % (4.0-6.0) 09/22/17 14:35 Calcium 9.5 mg/dL (8.6-10.3) 09/22/17 14:35 Total Bilirubin 0.5 mg/dL (0.3-1.0) 09/22/17 14:35 AST 19 U/L (13-39) 09/22/17 14:35 ALT 16 U/L (7-52) 09/22/17 14:35 Alkaline Phosphatase 74 U/L (34-104) 09/22/17 14:35 Total Protein 6.8 gm/dL (6.0-8.3) 09/22/17 14:35 Albumin 4.2 gm/dL (4.2-5.5) 09/22/17 14:35 Globulin 2.6 gm/dL 09/22/17 14:35 Albumin/Globulin Ratio 1.6 (1.0-1.8) 09/22/17 14:35 Triglycerides 100 mg/dL (<150) 09/22/17 14:35 Cholesterol 128 mg/dL (<200) 09/22/17 14:35 LDL Cholesterol Direct 74 mg/dL (75-193) L 09/22/17 14:35 HDL Cholesterol 49 mg/dL (23-92) 09/22/17 14:35 TSH 1.28 uIU/ml (0.34-5.60) 09/22/17 14:35 Salicylates < 25.0 mg/L (30.0-100.0) L 09/22/17 14:35 Acetaminophen < 10.0 ug/mL (10.0-30.0) L 09/22/17 14:35 Ethyl Alcohol < 10 mg/dL (0-10) 09/22/17 14:35 RPR NONREACTIVE (NONREACTIVE) 09/22/17 14:35 - Physical Exam Vitals and I&O: Vital Signs Temp 98.4 F 09/28/17 16:27 Pulse 88 09/28/17 16:27 Resp 20 09/28/17 16:27 BP 113/76 09/28/17 16:27 Pulse Ox 97 09/28/17 16:27 Intake & Output 09/27/17 09/28/17 09/28/17 18:59 06:59 18:59 Intake Total 8979 895 9238 Output Total 4 Balance 7797 634 0602 Intake: Oral 7367 049 0526 Output: Urine 4 Other: # Voids 1 3 Stool Characteristics Formed Formed Formed Brown Brown Brown Active Medications: Current Medications Acetaminophen (Tylenol) 650 mg PO Q4HR PRN PRN Reason: Mild Pain / Temp above 100 Stop: 11/21/17 16:54 Last Admin: 09/24/17 06:09 Dose: 650 mg Al Hydrox/Mg Hydrox/Simethicone (Maalox) 30 ml PO Q4HR PRN PRN Reason: GI DISTRESS Stop: 11/21/17 16:54 Allopurinol (Zyloprim) 300 mg PO DAILY [facility] Stop: 11/22/17 08:59 Last Admin: 09/28/17 08:37 Dose: 300 mg Aripiprazole (Abilify) 30 mg PO HS [facility] PRN Reason: Protocol Stop: 11/23/17 20:59 Last Admin: 09/27/17 20:41 Dose: 30 mg Docusate Sodium (Colace) 250 mg PO DAILY [facility] Stop: 11/22/17 08:59 Last Admin: 09/28/17 08:38 Dose: 250 mg Fluoxetine HCl (Prozac) 20 mg PO DAILY [facility] PRN Reason: Protocol Stop: 11/22/17 08:59 Last Admin: 09/28/17 08:38 Dose: 20 mg Gabapentin (Neurontin) 100 mg PO TID [facility] Stop: 11/21/17 20:59 Last Admin: 09/28/17 14:22 Dose: Not Given Glipizide (Glucotrol) 10 mg PO BID [facility] Stop: 11/22/17 08:59 Last Admin: 09/28/17 17:10 Dose: 10 mg Lorazepam (Ativan) 0.5 mg PO Q4HR PRN; Protocol PRN Reason: Anxiety Stop: 10/22/17 16:54 Last Admin: 09/28/17 03:44 Dose: 0.5 mg Magnesium Hydroxide (Milk Of Magnesia) 30 ml PO HS PRN PRN Reason: IF ORDERED STOOL SOFTENERS INE Stop: 11/21/17 22:06 Metformin HCl (Glucophage) 1,000 mg PO BID [facility] Stop: 11/22/17 08:59 Last Admin: 09/28/17 17:10 Dose: 1,000 mg Multivitamins/Vitamin C (Theragran) 1 tab PO DAILY [facility] Stop: 11/22/17 08:59 Last Admin: 09/28/17 08:38 Dose: 1 tab Pioglitazone HCl (Actos) 45 mg PO DAILY [facility] Stop: 11/22/17 08:59 Last Admin: 09/28/17 08:38 Dose: 45 mg Quetiapine Fumarate (Seroquel) 300 mg PO HS [facility] PRN Reason: Protocol Stop: 11/21/17 20:59 Last Admin: 09/27/17 20:41 Dose: 300 mg Trihexyphenidyl HCl (Artane) 2 mg PO TID [facility] Stop: 11/23/17 08:59 Last Admin: 09/28/17 14:22 Dose: Not Given Zolpidem Tartrate (Ambien) 5 mg PO HS PRN PRN Reason: Insomnia Stop: 11/21/17 16:54 Last Admin: 09/27/17 20:41 Dose: 5 mg General: No acute distress HEENT: Atraumatic, PERRLA Neck: Supple, JVD, Thyromegaly Cardiovascular: Regular rate, Normal S1, Normal S2 Lungs: Clear to auscultation Abdomen: Bowel sounds, Soft - Procedures Procedures: Procedures Procedure Code Date BRONCHOSCOPY/LUNG BX EACH 01702 05/01/01 C.A.T. SCAN OF HEAD 87.03 09/16/95 CLOSED ENDOSCOPIC BIOPSY OF LUNG 33.27 05/01/01 DX BRONCHOSCOPE/BRUSH 52111 05/01/01 ELECTROCARDIOGRAPH MONIT 89.54 09/16/95 ENDOSCOPIC BRONCHIAL BX 33.24 05/01/01 EXC H-F-NK-SP B9+SADE 2.1-3 68683 08/08/99 GROUP PSYCHOTHERAPY 24506 12/15/01 NASAL LACERATION SUTURE 21.81 09/16/95 OTHER GROUP THERAPY 94.44 12/15/01 OTHER LOCAL DESTRUC SKIN 86.3 08/08/99 OXYGEN ENRICHMENT NEC 93.96 09/16/95 PHYSICAL THERAPY NEC 93.39 09/16/95 RPR F/E/E/N/L/M 2.5 CM/< 48385 09/16/95 Assessment/Plan - Problem List Patient Problems: All Active Problems CONFUSION, WEAKNESS, RESISTIVE TO CARE (Acute) - Assessment Assessment: 1.DM. 2.GOUTY ARTHRITIS. 3.DEMENTIA. 4.PSYCHOSIS. - Plan Plan: cont current treatment Nutritional Asmnt/Malnutr-PDOC - Dietary Evaluation Malnutrition Findings (Please click <Entered> for more info): Nutritional Asmnt/Malnutrition Start: 09/27/17 10: 26 Text: Status: Complete Freq: Document 09/27/17 10:26 ALETHEA (Rec: 09/27/17 10:44 [email or web address] [email or web address]) Nutritional Asmnt/Malnutrition Patient General Information Nutritional Screening Moderate Risk Diagnosis Psychosis Pertinent Medical Hx/Surgical Hx DM, gout, dementia, psychosis Subjective Information Patient was admitted from SNF. Current Diet Order/ Nutrition Support Mechanical soft ground, 60 gm CCHO Patient / S.O Not Indicated Pertinent Medications maalox, colace, glipizide, MOM , Metformin, Theragran Pertinent Labs (09/22) WNL Nutritional Hx/Data Height 1.68 m Height (Calculated Centimeters) 167.6 Current Weight (lbs) 63.503 kg Weight (Calculated Kilograms) 63.5 Weight (Calculated Grams) 30044.9 [place] Body Weight 142 % [place] Body Weight 98 Body Mass Index (BMI) 22.6 Weight Status Approriate GI Symptoms GI Symptoms None Last BM 09/26 x 1 Difficult in: None Food Allergies No Cultural/Ethnic/Christian Belief None indicated Usual diet at home Unknown Skin Integrity/Comment: Michael 19, Intact Current %PO Good (75-100%) Estimated Nutritional Goals BEE in Kcals: Using Current wt Calories/Kcals/Kg 25-30 kcal/kg using 63.6kg CBW Kcals Calculated ~7021-4092 kcal/day (25-30 kcal/kg) Protein: Using Current wt Protein g/k gm/kg Protein Calculated ~65 gm/day Fluid: ml ~7931-9042 ml/day (1 ml/kcal) Nutritional Problem 1. Problem Problem no nutrition diagnosis at this time. Intervention/Recommendation Comments 1. Continue current diet order as tolerated by patient. Expected Outcomes/Goals Expected Outcomes/Goals Oral intake to meet >75% of nutrient needs, weight stable, nutrition related labs remain WNL
--- NOTE | 2017-09-29 03:35 | Progress Notes ---
DATE: SUBJECTIVE: The patient was seen, chart reviewed and discussed with staff. The patient continues to be very irritable, requiring numerous redirections. According to staff, patient has been making grunting sound of what appears to be clearing his throat, often does this towards the wall. He has, however, been generally redirectable, not requiring any p.r.n. medications. He has been eating and sleeping okay. PLAN: The patient continues to be actively psychotic and unpredictable, so that he will require continued inpatient care center treatment. We will monitor on daily basis for response to treatment and titrate medications as needed. JOB# [id number]
[2017-09-29] MEDS: Multivitamin Tab PO SCH (08:41)
--- NOTE | 2017-09-29 22:25 | Internal Medicine Prog Note ---
Internal Medicine Subjective - Subjective Service Date: 09/29/17 Patient seen and examined:: without staff Patient is:: arousable, in bed, confused Per staff patient has:: no adverse event Internal Medicine Objective - Results Result Diagrams: 09/22/17 14:35 09/22/17 14:35 Recent Labs: Laboratory Last Values WBC 9.0 Th/cmm (4.8-10.8) 09/22/17 14:35 RBC 4.87 Mil/cmm (3.80-5.80) 09/22/17 14:35 Hgb 13.8 gm/dL (12-16) 09/22/17 14:35 Hct 42.4 % (41.0-60) 09/22/17 14:35 MCV 87.1 fl (80-99) 09/22/17 14:35 MCH 28.3 pg (27.0-31.0) 09/22/17 14:35 MCHC Differential 32.5 pg (28.0-36.0) 09/22/17 14:35 RDW 15.5 % (11.5-20.0) 09/22/17 14:35 Plt Count 249 Th/cmm (150-400) 09/22/17 14:35 MPV 6.9 fl 09/22/17 14:35 Neutrophils % 81.4 % (40.0-80.0) H 09/22/17 14:35 Lymphocytes % 8.3 % (20.0-50.0) L 09/22/17 14:35 Monocytes % 8.5 % (2.0-10.0) 09/22/17 14:35 Eosinophils % 1.5 % (0.0-5.0) 09/22/17 14:35 Basophils % 0.3 % (0.0-2.0) 09/22/17 14:35 Sodium 137 mEq/L (136-145) 09/22/17 14:35 Potassium 4.3 mEq/L (3.5-5.1) 09/22/17 14:35 Chloride 100 mEq/L (98-107) 09/22/17 14:35 Carbon Dioxide 29.1 mEq/L (21.0-31.0) 09/22/17 14:35 Anion Gap 12.2 (7.0-16.0) 09/22/17 14:35 BUN 19 mg/dL (7-25) 09/22/17 14:35 Creatinine 0.8 mg/dL (0.7-1.3) 09/22/17 14:35 Est GFR ( Amer) TNP 09/22/17 14:35 Est GFR (Non-Af Amer) TNP 09/22/17 14:35 BUN/Creatinine Ratio 23.8 09/22/17 14:35 Glucose 75 mg/dL (70-105) 09/22/17 14:35 POC Glucose 109 MG/DL (70 - 105) H 09/29/17 06:47 Hemoglobin A1c % 4.9 % (4.0-6.0) 09/22/17 14:35 Calcium 9.5 mg/dL (8.6-10.3) 09/22/17 14:35 Total Bilirubin 0.5 mg/dL (0.3-1.0) 09/22/17 14:35 AST 19 U/L (13-39) 09/22/17 14:35 ALT 16 U/L (7-52) 09/22/17 14:35 Alkaline Phosphatase 74 U/L (34-104) 09/22/17 14:35 Total Protein 6.8 gm/dL (6.0-8.3) 09/22/17 14:35 Albumin 4.2 gm/dL (4.2-5.5) 09/22/17 14:35 Globulin 2.6 gm/dL 09/22/17 14:35 Albumin/Globulin Ratio 1.6 (1.0-1.8) 09/22/17 14:35 Triglycerides 100 mg/dL (<150) 09/22/17 14:35 Cholesterol 128 mg/dL (<200) 09/22/17 14:35 LDL Cholesterol Direct 74 mg/dL (75-193) L 09/22/17 14:35 HDL Cholesterol 49 mg/dL (23-92) 09/22/17 14:35 TSH 1.28 uIU/ml (0.34-5.60) 09/22/17 14:35 Salicylates < 25.0 mg/L (30.0-100.0) L 09/22/17 14:35 Acetaminophen < 10.0 ug/mL (10.0-30.0) L 09/22/17 14:35 Ethyl Alcohol < 10 mg/dL (0-10) 09/22/17 14:35 RPR NONREACTIVE (NONREACTIVE) 09/22/17 14:35 - Physical Exam Vitals and I&O: Vital Signs Temp 97.6 F 09/29/17 20:13 Pulse 100 09/29/17 20:13 Resp 19 09/29/17 20:13 BP 132/91 09/29/17 20:13 Pulse Ox 95 09/29/17 20:13 Intake & Output 09/29/17 09/29/17 09/30/17 06:59 18:59 06:59 Intake Total 360 950 240 Balance 360 950 240 Intake: Oral 360 950 240 Other: # Voids 2 4 1 # Bowel Movements 0 1 Stool Characteristics Formed Formed Brown Brown Active Medications: Current Medications Acetaminophen (Tylenol) 650 mg PO Q4HR PRN PRN Reason: Mild Pain / Temp above 100 Stop: 11/21/17 16:54 Last Admin: 09/24/17 06:09 Dose: 650 mg Al Hydrox/Mg Hydrox/Simethicone (Maalox) 30 ml PO Q4HR PRN PRN Reason: GI DISTRESS Stop: 11/21/17 16:54 Allopurinol (Zyloprim) 300 mg PO DAILY [facility] Stop: 11/22/17 08:59 Last Admin: 09/29/17 08:40 Dose: 300 mg Aripiprazole (Abilify) 30 mg PO HS [facility] PRN Reason: Protocol Stop: 11/23/17 20:59 Last Admin: 09/29/17 21:14 Dose: 30 mg Docusate Sodium (Colace) 250 mg PO DAILY [facility] Stop: 11/22/17 08:59 Last Admin: 09/29/17 08:40 Dose: 250 mg Fluoxetine HCl (Prozac) 20 mg PO DAILY [facility] PRN Reason: Protocol Stop: 11/22/17 08:59 Last Admin: 09/29/17 08:41 Dose: 20 mg Gabapentin (Neurontin) 100 mg PO TID [facility] Stop: 11/21/17 20:59 Last Admin: 09/29/17 21:13 Dose: 100 mg Glipizide (Glucotrol) 10 mg PO BID [facility] Stop: 11/22/17 08:59 Last Admin: 09/29/17 17:10 Dose: 10 mg Lorazepam (Ativan) 0.5 mg PO Q4HR PRN; Protocol PRN Reason: Anxiety Stop: 10/22/17 16:54 Last Admin: 09/28/17 03:44 Dose: 0.5 mg Magnesium Hydroxide (Milk Of Magnesia) 30 ml PO HS PRN PRN Reason: IF ORDERED STOOL SOFTENERS INE Stop: 11/21/17 22:06 Metformin HCl (Glucophage) 1,000 mg PO BID [facility] Stop: 11/22/17 08:59 Last Admin: 09/29/17 17:10 Dose: 1,000 mg Multivitamins/Vitamin C (Theragran) 1 tab PO DAILY [facility] Stop: 11/22/17 08:59 Last Admin: 09/29/17 08:41 Dose: 1 tab Pioglitazone HCl (Actos) 45 mg PO DAILY [facility] Stop: 11/22/17 08:59 Last Admin: 09/29/17 08:40 Dose: 45 mg Quetiapine Fumarate (Seroquel) 300 mg PO HS [facility] PRN Reason: Protocol Stop: 11/21/17 20:59 Last Admin: 09/29/17 21:13 Dose: 300 mg Trihexyphenidyl HCl (Artane) 2 mg PO TID [facility] Stop: 11/23/17 08:59 Last Admin: 09/29/17 21:14 Dose: 2 mg Zolpidem Tartrate (Ambien) 5 mg PO HS PRN PRN Reason: Insomnia Stop: 11/21/17 16:54 Last Admin: 09/28/17 20:45 Dose: 5 mg General: demented HEENT: NC/AT, PERRLA, EOMI, anicteric sclerae, throat clear Neck: Supple, No JVD, No thyromegaly, +2 carotid pulse wo bruit Lungs: CTAB Cardiovascular: RRR, Normal S1, Normal S2, without murmur Abdomen: soft, non-tender, non-distended Extremities: clear Neurological: no change - Procedures Procedures: Procedures Procedure Code Date BRONCHOSCOPY/LUNG BX EACH 95659 05/01/01 C.A.T. SCAN OF HEAD 87.03 09/16/95 CLOSED ENDOSCOPIC BIOPSY OF LUNG 33.27 05/01/01 DX BRONCHOSCOPE/BRUSH 05/01/01 ELECTROCARDIOGRAPH MONIT 89.54 09/16/95 ENDOSCOPIC BRONCHIAL BX 33.24 05/01/01 EXC H-F-NK-SP B9+SADE 2.1-3 39943 08/08/99 GROUP PSYCHOTHERAPY 26712 12/15/01 NASAL LACERATION SUTURE 21.81 09/16/95 OTHER GROUP THERAPY 94.44 12/15/01 OTHER LOCAL DESTRUC SKIN 86.3 08/08/99 OXYGEN ENRICHMENT NEC 93.96 09/16/95 PHYSICAL THERAPY NEC 93.39 09/16/95 RPR F/E/E/N/L/M 2.5 CM/< 57153 09/16/95 Internal Medicine Assmt/Plan - Assessment Assessment: 1.DM. 2.GOUTY ARTHRITIS. 3.DEMENTIA. 4.PSYCHOSIS. - Plan Plan: CONTINUE ON CURRENT MEDICATION AND DIET. Nutritional Asmnt/Malnutr-PDOC - Dietary Evaluation Malnutrition Findings (Please click <Entered> for more info): Nutritional Asmnt/Malnutrition Start: 09/27/17 10: 26 Text: Status: Complete Freq: Document 09/27/17 10:26 ALETHEA (Rec: 09/27/17 10:44 MMULANGELICA CLARKE [email or web address]) Nutritional Asmnt/Malnutrition Patient General Information Nutritional Screening Moderate Risk Diagnosis Psychosis Pertinent Medical Hx/Surgical Hx DM, gout, dementia, psychosis Subjective Information Patient was admitted from SNF. Current Diet Order/ Nutrition Support Mechanical soft ground, 60 gm CCHO Patient / S.O Not Indicated Pertinent Medications maalox, colace, glipizide, MOM , Metformin, Theragran Pertinent Labs (09/22) WNL Nutritional Hx/Data Height 1.68 m Height (Calculated Centimeters) 167.6 Current Weight (lbs) 63.503 kg Weight (Calculated Kilograms) 63.5 Weight (Calculated Grams) 24198.9 [place] Body Weight 142 % [place] Body Weight 98 Body Mass Index (BMI) 22.6 Weight Status Approriate GI Symptoms GI Symptoms None Last BM 09/26 x 1 Difficult in: None Food Allergies No Cultural/Ethnic/Christian Belief None indicated Usual diet at home Unknown Skin Integrity/Comment: Michael 19, Intact Current %PO Good (75-100%) Estimated Nutritional Goals BEE in Kcals: Using Current wt Calories/Kcals/Kg 25-30 kcal/kg using 63.6kg CBW Kcals Calculated ~5212-4907 kcal/day (25-30 kcal/kg) Protein: Using Current wt Protein g/k gm/kg Protein Calculated ~65 gm/day Fluid: ml ~9164-4736 ml/day (1 ml/kcal) Nutritional Problem 1. Problem Problem no nutrition diagnosis at this time. Intervention/Recommendation Comments 1. Continue current diet order as tolerated by patient. Expected Outcomes/Goals Expected Outcomes/Goals Oral intake to meet >75% of nutrient needs, weight stable, nutrition related labs remain WNL
--- NOTE | 2017-09-29 23:28 | Progress Notes ---
DATE: 09/29/[address] Ji. Case discussed with staff of the patient and reviewed records. The patient continues to need redirection. Continues to be psychotic, unpredictable, and impulsive. He has very poor insight, unable to make safe plan for self-care. He is compliant with the medication with no side effects, no sedation, no nausea, and no extrapyramidal symptoms. We will continue with the patient in group therapy, milieu therapy, and adjust medications. JOB# [id number]
[2017-09-30] MEDS: Multivitamin Tab PO SCH (10:40)
--- NOTE | 2017-09-30 11:35 | Internal Medicine Prog Note ---
Internal Medicine Subjective - Subjective Service Date: 09/30/17 Patient seen and examined:: with staff Patient is:: arousable, in bed, confused Per staff patient has:: no adverse event Internal Medicine Objective - Results Result Diagrams: 09/22/17 14:35 09/22/17 14:35 Recent Labs: Laboratory Last Values WBC 9.0 Th/cmm (4.8-10.8) 09/22/17 14:35 RBC 4.87 Mil/cmm (3.80-5.80) 09/22/17 14:35 Hgb 13.8 gm/dL (12-16) 09/22/17 14:35 Hct 42.4 % (41.0-60) 09/22/17 14:35 MCV 87.1 fl (80-99) 09/22/17 14:35 MCH 28.3 pg (27.0-31.0) 09/22/17 14:35 MCHC Differential 32.5 pg (28.0-36.0) 09/22/17 14:35 RDW 15.5 % (11.5-20.0) 09/22/17 14:35 Plt Count 249 Th/cmm (150-400) 09/22/17 14:35 MPV 6.9 fl 09/22/17 14:35 Neutrophils % 81.4 % (40.0-80.0) H 09/22/17 14:35 Lymphocytes % 8.3 % (20.0-50.0) L 09/22/17 14:35 Monocytes % 8.5 % (2.0-10.0) 09/22/17 14:35 Eosinophils % 1.5 % (0.0-5.0) 09/22/17 14:35 Basophils % 0.3 % (0.0-2.0) 09/22/17 14:35 Sodium 137 mEq/L (136-145) 09/22/17 14:35 Potassium 4.3 mEq/L (3.5-5.1) 09/22/17 14:35 Chloride 100 mEq/L (98-107) 09/22/17 14:35 Carbon Dioxide 29.1 mEq/L (21.0-31.0) 09/22/17 14:35 Anion Gap 12.2 (7.0-16.0) 09/22/17 14:35 BUN 19 mg/dL (7-25) 09/22/17 14:35 Creatinine 0.8 mg/dL (0.7-1.3) 09/22/17 14:35 Est GFR ( Amer) TNP 09/22/17 14:35 Est GFR (Non-Af Amer) TNP 09/22/17 14:35 BUN/Creatinine Ratio 23.8 09/22/17 14:35 Glucose 75 mg/dL (70-105) 09/22/17 14:35 POC Glucose 109 MG/DL (70 - 105) H 09/29/17 06:47 Hemoglobin A1c % 4.9 % (4.0-6.0) 09/22/17 14:35 Calcium 9.5 mg/dL (8.6-10.3) 09/22/17 14:35 Total Bilirubin 0.5 mg/dL (0.3-1.0) 09/22/17 14:35 AST 19 U/L (13-39) 09/22/17 14:35 ALT 16 U/L (7-52) 09/22/17 14:35 Alkaline Phosphatase 74 U/L (34-104) 09/22/17 14:35 Total Protein 6.8 gm/dL (6.0-8.3) 09/22/17 14:35 Albumin 4.2 gm/dL (4.2-5.5) 09/22/17 14:35 Globulin 2.6 gm/dL 09/22/17 14:35 Albumin/Globulin Ratio 1.6 (1.0-1.8) 09/22/17 14:35 Triglycerides 100 mg/dL (<150) 09/22/17 14:35 Cholesterol 128 mg/dL (<200) 09/22/17 14:35 LDL Cholesterol Direct 74 mg/dL (75-193) L 09/22/17 14:35 HDL Cholesterol 49 mg/dL (23-92) 09/22/17 14:35 TSH 1.28 uIU/ml (0.34-5.60) 09/22/17 14:35 Salicylates < 25.0 mg/L (30.0-100.0) L 09/22/17 14:35 Acetaminophen < 10.0 ug/mL (10.0-30.0) L 09/22/17 14:35 Ethyl Alcohol < 10 mg/dL (0-10) 09/22/17 14:35 RPR NONREACTIVE (NONREACTIVE) 09/22/17 14:35 - Physical Exam Vitals and I&O: Vital Signs Temp 97.2 F 09/30/17 06:14 Pulse 86 09/30/17 06:14 Resp 20 09/30/17 06:14 BP 124/72 09/30/17 06:14 Pulse Ox 95 09/30/17 06:14 Intake & Output 09/29/17 09/30/17 09/30/17 18:59 06:59 18:59 Intake Total 950 480 Balance 950 480 Intake: Oral 950 480 Other: # Voids 4 2 # Bowel Movements 1 Stool Characteristics Formed Brown Active Medications: Current Medications Acetaminophen (Tylenol) 650 mg PO Q4HR PRN PRN Reason: Mild Pain / Temp above 100 Stop: 11/21/17 16:54 Last Admin: 09/24/17 06:09 Dose: 650 mg Al Hydrox/Mg Hydrox/Simethicone (Maalox) 30 ml PO Q4HR PRN PRN Reason: GI DISTRESS Stop: 11/21/17 16:54 Allopurinol (Zyloprim) 300 mg PO DAILY [facility] Stop: 11/22/17 08:59 Last Admin: 09/30/17 10:38 Dose: 300 mg Aripiprazole (Abilify) 30 mg PO HS [facility] PRN Reason: Protocol Stop: 11/23/17 20:59 Last Admin: 09/29/17 21:14 Dose: 30 mg Docusate Sodium (Colace) 250 mg PO DAILY [facility] Stop: 11/22/17 08:59 Last Admin: 09/29/17 08:40 Dose: 250 mg Fluoxetine HCl (Prozac) 20 mg PO DAILY [facility] PRN Reason: Protocol Stop: 11/22/17 08:59 Last Admin: 09/30/17 10:39 Dose: 20 mg Gabapentin (Neurontin) 100 mg PO TID [facility] Stop: 11/21/17 20:59 Last Admin: 09/30/17 10:38 Dose: 100 mg Glipizide (Glucotrol) 10 mg PO BID [facility] Stop: 11/22/17 08:59 Last Admin: 09/30/17 10:39 Dose: 10 mg Lorazepam (Ativan) 0.5 mg PO Q4HR PRN; Protocol PRN Reason: Anxiety Stop: 10/22/17 16:54 Last Admin: 09/30/17 10:38 Dose: 0.5 mg Magnesium Hydroxide (Milk Of Magnesia) 30 ml PO HS PRN PRN Reason: IF ORDERED STOOL SOFTENERS INE Stop: 11/21/17 22:06 Metformin HCl (Glucophage) 1,000 mg PO BID [facility] Stop: 11/22/17 08:59 Last Admin: 09/30/17 10:39 Dose: 1,000 mg Multivitamins/Vitamin C (Theragran) 1 tab PO DAILY [facility] Stop: 11/22/17 08:59 Last Admin: 09/30/17 10:40 Dose: Not Given Pioglitazone HCl (Actos) 45 mg PO DAILY [facility] Stop: 11/22/17 08:59 Last Admin: 09/30/17 10:38 Dose: 45 mg Quetiapine Fumarate (Seroquel) 300 mg PO HS [facility] PRN Reason: Protocol Stop: 11/21/17 20:59 Last Admin: 09/29/17 21:13 Dose: 300 mg Trihexyphenidyl HCl (Artane) 2 mg PO TID [facility] Stop: 11/23/17 08:59 Last Admin: 09/30/17 10:39 Dose: 2 mg Zolpidem Tartrate (Ambien) 5 mg PO HS PRN PRN Reason: Insomnia Stop: 11/21/17 16:54 Last Admin: 09/28/17 20:45 Dose: 5 mg General: demented HEENT: NC/AT, PERRLA, EOMI, anicteric sclerae, throat clear Neck: Supple, No JVD, No thyromegaly, +2 carotid pulse wo bruit Lungs: CTAB Cardiovascular: RRR, Normal S1, Normal S2, without murmur Abdomen: soft, non-tender, non-distended Extremities: clear Neurological: no change - Procedures Procedures: Procedures Procedure Code Date BRONCHOSCOPY/LUNG BX EACH 46145 05/01/01 C.A.T. SCAN OF HEAD 87.03 09/16/95 CLOSED ENDOSCOPIC BIOPSY OF LUNG 33.27 05/01/01 DX BRONCHOSCOPE/BRUSH 44034 05/01/01 ELECTROCARDIOGRAPH MONIT 89.54 09/16/95 ENDOSCOPIC BRONCHIAL BX 33.24 05/01/01 EXC H-F-NK-SP B9+SADE 2.1-3 25262 08/08/99 GROUP PSYCHOTHERAPY 33445 12/15/01 NASAL LACERATION SUTURE 21.81 09/16/95 OTHER GROUP THERAPY 94.44 12/15/01 OTHER LOCAL DESTRUC SKIN 86.3 08/08/99 OXYGEN ENRICHMENT NEC 93.96 09/16/95 PHYSICAL THERAPY NEC 93.39 09/16/95 RPR F/E/E/N/L/M 2.5 CM/< 18760 09/16/95 Internal Medicine Assmt/Plan - Assessment Assessment: 1.DM. 2.GOUTY ARTHRITIS. 3.DEMENTIA. 4.PSYCHOSIS. - Plan Plan: CONTINUE ON CURRENT MEDICATION AND DIET. Nutritional Asmnt/Malnutr-PDOC - Dietary Evaluation Malnutrition Findings (Please click <Entered> for more info): Nutritional Asmnt/Malnutrition Start: 09/27/17 10: 26 Text: Status: Complete Freq: Document 09/27/17 10:26 ALETHEA (Rec: 09/27/17 10:44 MMULANGELICA CLARKE FN) Nutritional Asmnt/Malnutrition Patient General Information Nutritional Screening Moderate Risk Diagnosis Psychosis Pertinent Medical Hx/Surgical Hx DM, gout, dementia, psychosis Subjective Information Patient was admitted from SNF. Current Diet Order/ Nutrition Support Mechanical soft ground, 60 gm CCHO Patient / S.O Not Indicated Pertinent Medications maalox, colace, glipizide, MOM , Metformin, Theragran Pertinent Labs (09/22) WNL Nutritional Hx/Data Height 1.68 m Height (Calculated Centimeters) 167.6 Current Weight (lbs) 63.503 kg Weight (Calculated Kilograms) 63.5 Weight (Calculated Grams) 53956.9 [place] Body Weight 142 % [place] Body Weight 98 Body Mass Index (BMI) 22.6 Weight Status Approriate GI Symptoms GI Symptoms None Last BM 09/26 x 1 Difficult in: None Food Allergies No Cultural/Ethnic/Restorationist Belief None indicated Usual diet at home Unknown Skin Integrity/Comment: Michael 19, Intact Current %PO Good (75-100%) Estimated Nutritional Goals BEE in Kcals: Using Current wt Calories/Kcals/Kg 25-30 kcal/kg using 63.6kg CBW Kcals Calculated ~7886-8182 kcal/day (25-30 kcal/kg) Protein: Using Current wt Protein g/k gm/kg Protein Calculated ~65 gm/day Fluid: ml ~9250-6370 ml/day (1 ml/kcal) Nutritional Problem 1. Problem Problem no nutrition diagnosis at this time. Intervention/Recommendation Comments 1. Continue current diet order as tolerated by patient. Expected Outcomes/Goals Expected Outcomes/Goals Oral intake to meet >75% of nutrient needs, weight stable, nutrition related labs remain WNL
--- NOTE | 2017-09-30 21:23 | Progress Notes ---
DATE: 09/30/[address] Ji. SUBJECTIVE: Case discussed with staff of the patient and reviewed records. The patient continues to be unpredictable, impulsive, needing redirection, very poor insight, unable to make a safe plan for self-care, continues to have episodes of irritability, easily agitated at times, responding to internal stimuli. He is sleeping better, eating better. He tolerated the Seroquel 50 mg twice a day with no side effects, no sedation, no nausea, no extrapyramidal symptoms. There has been no change in his medication since yesterday. We will continue outpatient group therapy, milieu therapy, and adjust medications as needed. JOB# [id number]
[2017-10-01] MEDS: Multivitamin Tab PO SCH (08:23)
--- NOTE | 2017-10-01 23:37 | Internal Medicine Prog Note ---
Internal Medicine Subjective - Subjective Service Date: 10/01/17 Patient seen and examined:: without staff Patient is:: arousable, in bed, confused Per staff patient has:: no adverse event Internal Medicine Objective - Results Result Diagrams: 09/22/17 14:35 09/22/17 14:35 Recent Labs: Laboratory Last Values WBC 9.0 Th/cmm (4.8-10.8) 09/22/17 14:35 RBC 4.87 Mil/cmm (3.80-5.80) 09/22/17 14:35 Hgb 13.8 gm/dL (12-16) 09/22/17 14:35 Hct 42.4 % (41.0-60) 09/22/17 14:35 MCV 87.1 fl (80-99) 09/22/17 14:35 MCH 28.3 pg (27.0-31.0) 09/22/17 14:35 MCHC Differential 32.5 pg (28.0-36.0) 09/22/17 14:35 RDW 15.5 % (11.5-20.0) 09/22/17 14:35 Plt Count 249 Th/cmm (150-400) 09/22/17 14:35 MPV 6.9 fl 09/22/17 14:35 Neutrophils % 81.4 % (40.0-80.0) H 09/22/17 14:35 Lymphocytes % 8.3 % (20.0-50.0) L 09/22/17 14:35 Monocytes % 8.5 % (2.0-10.0) 09/22/17 14:35 Eosinophils % 1.5 % (0.0-5.0) 09/22/17 14:35 Basophils % 0.3 % (0.0-2.0) 09/22/17 14:35 Sodium 137 mEq/L (136-145) 09/22/17 14:35 Potassium 4.3 mEq/L (3.5-5.1) 09/22/17 14:35 Chloride 100 mEq/L (98-107) 09/22/17 14:35 Carbon Dioxide 29.1 mEq/L (21.0-31.0) 09/22/17 14:35 Anion Gap 12.2 (7.0-16.0) 09/22/17 14:35 BUN 19 mg/dL (7-25) 09/22/17 14:35 Creatinine 0.8 mg/dL (0.7-1.3) 09/22/17 14:35 Est GFR ( Amer) TNP 09/22/17 14:35 Est GFR (Non-Af Amer) TNP 09/22/17 14:35 BUN/Creatinine Ratio 23.8 09/22/17 14:35 Glucose 75 mg/dL (70-105) 09/22/17 14:35 POC Glucose 95 MG/DL (70 - 105) 10/01/17 06:03 Hemoglobin A1c % 4.9 % (4.0-6.0) 09/22/17 14:35 Calcium 9.5 mg/dL (8.6-10.3) 09/22/17 14:35 Total Bilirubin 0.5 mg/dL (0.3-1.0) 09/22/17 14:35 AST 19 U/L (13-39) 09/22/17 14:35 ALT 16 U/L (7-52) 09/22/17 14:35 Alkaline Phosphatase 74 U/L (34-104) 09/22/17 14:35 Total Protein 6.8 gm/dL (6.0-8.3) 09/22/17 14:35 Albumin 4.2 gm/dL (4.2-5.5) 09/22/17 14:35 Globulin 2.6 gm/dL 09/22/17 14:35 Albumin/Globulin Ratio 1.6 (1.0-1.8) 09/22/17 14:35 Triglycerides 100 mg/dL (<150) 09/22/17 14:35 Cholesterol 128 mg/dL (<200) 09/22/17 14:35 LDL Cholesterol Direct 74 mg/dL (75-193) L 09/22/17 14:35 HDL Cholesterol 49 mg/dL (23-92) 09/22/17 14:35 TSH 1.28 uIU/ml (0.34-5.60) 09/22/17 14:35 Salicylates < 25.0 mg/L (30.0-100.0) L 09/22/17 14:35 Acetaminophen < 10.0 ug/mL (10.0-30.0) L 09/22/17 14:35 Ethyl Alcohol < 10 mg/dL (0-10) 09/22/17 14:35 RPR NONREACTIVE (NONREACTIVE) 09/22/17 14:35 - Physical Exam Vitals and I&O: Vital Signs Temp 96.9 F 10/01/17 20:00 Pulse 77 10/01/17 20:00 Resp 18 10/01/17 20:00 BP 110/76 10/01/17 20:00 Pulse Ox 98 10/01/17 20:00 Intake & Output 10/01/17 10/01/17 10/02/17 06:59 18:59 06:59 Intake Total 240 1200 Balance 240 1200 Intake: Oral 240 1200 Other: # Voids 2 3 # Bowel Movements 1 1 Active Medications: Current Medications Acetaminophen (Tylenol) 650 mg PO Q4HR PRN PRN Reason: Mild Pain / Temp above 100 Stop: 11/21/17 16:54 Last Admin: 09/24/17 06:09 Dose: 650 mg Al Hydrox/Mg Hydrox/Simethicone (Maalox) 30 ml PO Q4HR PRN PRN Reason: GI DISTRESS Stop: 11/21/17 16:54 Allopurinol (Zyloprim) 300 mg PO DAILY [facility] Stop: 11/22/17 08:59 Last Admin: 10/01/17 08:23 Dose: 300 mg Aripiprazole (Abilify) 30 mg PO HS SHAZIA PRN Reason: Protocol Stop: 11/23/17 20:59 Last Admin: 10/01/17 21:21 Dose: Not Given Docusate Sodium (Colace) 250 mg PO DAILY [facility] Stop: 11/22/17 08:59 Last Admin: 10/01/17 08:23 Dose: 250 mg Fluoxetine HCl (Prozac) 20 mg PO DAILY SHAZIA PRN Reason: Protocol Stop: 11/22/17 08:59 Last Admin: 10/01/17 08:26 Dose: 20 mg Gabapentin (Neurontin) 100 mg PO TID [facility] Stop: 11/21/17 20:59 Last Admin: 10/01/17 21:19 Dose: Not Given Glipizide (Glucotrol) 10 mg PO BID [facility] Stop: 11/22/17 08:59 Last Admin: 10/01/17 17:28 Dose: Not Given Lorazepam (Ativan) 0.5 mg PO Q4HR PRN; Protocol PRN Reason: Anxiety Stop: 10/22/17 16:54 Last Admin: 10/01/17 08:23 Dose: 0.5 mg Magnesium Hydroxide (Milk Of Magnesia) 30 ml PO HS PRN PRN Reason: IF ORDERED STOOL SOFTENERS INE Stop: 11/21/17 22:06 Metformin HCl (Glucophage) 1,000 mg PO BID SH[facility] Stop: 11/22/17 08:59 Last Admin: 10/01/17 17:28 Dose: Not Given Multivitamins/Vitamin C (Theragran) 1 tab PO DAILY [facility] Stop: 11/22/17 08:59 Last Admin: 10/01/17 08:23 Dose: 1 tab Pioglitazone HCl (Actos) 45 mg PO DAILY [facility] Stop: 11/22/17 08:59 Last Admin: 10/01/17 08:24 Dose: 45 mg Quetiapine Fumarate (Seroquel) 300 mg PO HS SHAZIA PRN Reason: Protocol Stop: 11/21/17 20:59 Last Admin: 10/01/17 21:21 Dose: Not Given Trihexyphenidyl HCl (Artane) 2 mg PO TID [facility] Stop: 11/23/17 08:59 Last Admin: 10/01/17 21:19 Dose: Not Given Zolpidem Tartrate (Ambien) 5 mg PO HS PRN PRN Reason: Insomnia Stop: 11/21/17 16:54 Last Admin: 09/28/17 20:45 Dose: 5 mg General: demented HEENT: NC/AT, PERRLA, EOMI, anicteric sclerae, throat clear Neck: Supple, No JVD, No thyromegaly, +2 carotid pulse wo bruit Lungs: CTAB Cardiovascular: RRR, Normal S1, Normal S2, without murmur Abdomen: soft, non-tender, non-distended Extremities: clear Neurological: no change - Procedures Procedures: Procedures Procedure Code Date BRONCHOSCOPY/LUNG BX EACH 17740 05/01/01 C.A.T. SCAN OF HEAD 87.03 09/16/95 CLOSED ENDOSCOPIC BIOPSY OF LUNG 33.27 05/01/01 DX BRONCHOSCOPE/BRUSH 21342 05/01/01 ELECTROCARDIOGRAPH MONIT 89.54 09/16/95 ENDOSCOPIC BRONCHIAL BX 33.24 05/01/01 EXC H-F-NK-SP B9+SADE 2.1-3 21120 08/08/99 GROUP PSYCHOTHERAPY 15613 12/15/01 NASAL LACERATION SUTURE 21.81 09/16/95 OTHER GROUP THERAPY 94.44 12/15/01 OTHER LOCAL DESTRUC SKIN 86.3 08/08/99 OXYGEN ENRICHMENT NEC 93.96 09/16/95 PHYSICAL THERAPY NEC 93.39 09/16/95 RPR F/E/E/N/L/M 2.5 CM/< 50898 09/16/95 Internal Medicine Assmt/Plan - Assessment Assessment: 1.DM. 2.GOUTY ARTHRITIS. 3.DEMENTIA. 4.PSYCHOSIS. - Plan Plan: CONTINUE ON CURRENT MEDICATION AND DIET. Nutritional Asmnt/Malnutr-PDOC - Dietary Evaluation Malnutrition Findings (Please click <Entered> for more info): Nutritional Asmnt/Malnutrition Start: 09/27/17 10: 26 Text: Status: Complete Freq: Document 09/27/17 10:26 ALETHEA (Rec: 09/27/17 10:44 MMABDI CLARKE FN) Nutritional Asmnt/Malnutrition Patient General Information Nutritional Screening Moderate Risk Diagnosis Psychosis Pertinent Medical Hx/Surgical Hx DM, gout, dementia, psychosis Subjective Information Patient was admitted from SNF. Current Diet Order/ Nutrition Support Mechanical soft ground, 60 gm CCHO Patient / S.O Not Indicated Pertinent Medications maalox, colace, glipizide, MOM , Metformin, Theragran Pertinent Labs (09/22) WNL Nutritional Hx/Data Height 1.68 m Height (Calculated Centimeters) 167.6 Current Weight (lbs) 63.503 kg Weight (Calculated Kilograms) 63.5 Weight (Calculated Grams) 12251.9 [place] Body Weight 142 % [place] Body Weight 98 Body Mass Index (BMI) 22.6 Weight Status Approriate GI Symptoms GI Symptoms None Last BM 09/26 x 1 Difficult in: None Food Allergies No Cultural/Ethnic/Voodoo Belief None indicated Usual diet at home Unknown Skin Integrity/Comment: Michael 19, Intact Current %PO Good (75-100%) Estimated Nutritional Goals BEE in Kcals: Using Current wt Calories/Kcals/Kg 25-30 kcal/kg using 63.6kg CBW Kcals Calculated ~1307-5921 kcal/day (25-30 kcal/kg) Protein: Using Current wt Protein g/k gm/kg Protein Calculated ~65 gm/day Fluid: ml ~9293-9038 ml/day (1 ml/kcal) Nutritional Problem 1. Problem Problem no nutrition diagnosis at this time. Intervention/Recommendation Comments 1. Continue current diet order as tolerated by patient. Expected Outcomes/Goals Expected Outcomes/Goals Oral intake to meet >75% of nutrient needs, weight stable, nutrition related labs remain WNL
--- NOTE | 2017-10-02 01:18 | Progress Notes ---
DATE: 10/01/2017 SUBJECTIVE: Chart reviewed and the patient interviewed. Also, discussed the patient's condition with the staff and reviewed records and labs. The patient seems to be slightly calmer, but the patient is still wandering around the unit and he still seems to be responding to stimuli. The patient also is entering other patient's rooms in a confused state and mumbling and talking to himself. He is yet to redirect him and also not as agitated. ASSESSMENT: The patient is still psychotic, but seems to be calmer. TREATMENT PLAN: We will continue Abilify and Seroquel the same dose. Also, continue to monitor his behavior closely. Also, working on discharge plans and placement issue. JOB# [id number]
[2017-10-02] MEDS: Multivitamin Tab PO SCH (09:46)
--- NOTE | 2017-10-02 23:31 | Progress Notes ---
DATE: SUBJECTIVE: Chart reviewed and the patient interviewed. Also discussed the patient's condition with the staff and reviewed records and labs. The patient continued to be confused and isolative. The patient also is still restless and has episodes of severe agitation, and yesterday, the patient was trying to grab food from staff and from other patients. The patient also is increasingly agitated during the day and is trying to get up, hit staff and has difficulty following directions. Otherwise, the patient is suspicious and is paranoid and agitated. ASSESSMENT: The patient is in angry and irritable mood and patient is agitated. TREATMENT PLAN: We will increase Seroquel to 25 mg in the morning and 300 mg at bedtime. At the same time, we will decrease Abilify to 20 mg every day and we will cross titrate medications. Also, we will monitor behavior closely. Also, will work on behavioral modification. JOB# [id number]
--- NOTE | 2017-10-02 23:54 | Internal Medicine Prog Note ---
Internal Medicine Subjective - Subjective Service Date: 10/02/17 Patient seen and examined:: without staff Patient is:: arousable, in bed, confused Per staff patient has:: no adverse event Internal Medicine Objective - Results Result Diagrams: 09/22/17 14:35 09/22/17 14:35 Recent Labs: Laboratory Last Values WBC 9.0 Th/cmm (4.8-10.8) 09/22/17 14:35 RBC 4.87 Mil/cmm (3.80-5.80) 09/22/17 14:35 Hgb 13.8 gm/dL (12-16) 09/22/17 14:35 Hct 42.4 % (41.0-60) 09/22/17 14:35 MCV 87.1 fl (80-99) 09/22/17 14:35 MCH 28.3 pg (27.0-31.0) 09/22/17 14:35 MCHC Differential 32.5 pg (28.0-36.0) 09/22/17 14:35 RDW 15.5 % (11.5-20.0) 09/22/17 14:35 Plt Count 249 Th/cmm (150-400) 09/22/17 14:35 MPV 6.9 fl 09/22/17 14:35 Neutrophils % 81.4 % (40.0-80.0) H 09/22/17 14:35 Lymphocytes % 8.3 % (20.0-50.0) L 09/22/17 14:35 Monocytes % 8.5 % (2.0-10.0) 09/22/17 14:35 Eosinophils % 1.5 % (0.0-5.0) 09/22/17 14:35 Basophils % 0.3 % (0.0-2.0) 09/22/17 14:35 Sodium 137 mEq/L (136-145) 09/22/17 14:35 Potassium 4.3 mEq/L (3.5-5.1) 09/22/17 14:35 Chloride 100 mEq/L (98-107) 09/22/17 14:35 Carbon Dioxide 29.1 mEq/L (21.0-31.0) 09/22/17 14:35 Anion Gap 12.2 (7.0-16.0) 09/22/17 14:35 BUN 19 mg/dL (7-25) 09/22/17 14:35 Creatinine 0.8 mg/dL (0.7-1.3) 09/22/17 14:35 Est GFR ( Amer) TNP 09/22/17 14:35 Est GFR (Non-Af Amer) TNP 09/22/17 14:35 BUN/Creatinine Ratio 23.8 09/22/17 14:35 Glucose 75 mg/dL (70-105) 09/22/17 14:35 POC Glucose 151 MG/DL (70 - 105) H 10/02/17 06:11 Hemoglobin A1c % 4.9 % (4.0-6.0) 09/22/17 14:35 Calcium 9.5 mg/dL (8.6-10.3) 09/22/17 14:35 Total Bilirubin 0.5 mg/dL (0.3-1.0) 09/22/17 14:35 AST 19 U/L (13-39) 09/22/17 14:35 ALT 16 U/L (7-52) 09/22/17 14:35 Alkaline Phosphatase 74 U/L (34-104) 09/22/17 14:35 Total Protein 6.8 gm/dL (6.0-8.3) 09/22/17 14:35 Albumin 4.2 gm/dL (4.2-5.5) 09/22/17 14:35 Globulin 2.6 gm/dL 09/22/17 14:35 Albumin/Globulin Ratio 1.6 (1.0-1.8) 09/22/17 14:35 Triglycerides 100 mg/dL (<150) 09/22/17 14:35 Cholesterol 128 mg/dL (<200) 09/22/17 14:35 LDL Cholesterol Direct 74 mg/dL (75-193) L 09/22/17 14:35 HDL Cholesterol 49 mg/dL (23-92) 09/22/17 14:35 TSH 1.28 uIU/ml (0.34-5.60) 09/22/17 14:35 Salicylates < 25.0 mg/L (30.0-100.0) L 09/22/17 14:35 Acetaminophen < 10.0 ug/mL (10.0-30.0) L 09/22/17 14:35 Ethyl Alcohol < 10 mg/dL (0-10) 09/22/17 14:35 RPR NONREACTIVE (NONREACTIVE) 09/22/17 14:35 - Physical Exam Vitals and I&O: Vital Signs Temp 98 F 10/02/17 20:00 Pulse 72 10/02/17 20:00 Resp 20 10/02/17 20:00 BP 134/79 10/02/17 20:00 Pulse Ox 97 10/02/17 20:00 Intake & Output 10/02/17 10/02/17 10/03/17 06:59 18:59 06:59 Intake Total 120 1200 Balance 120 1200 Intake: Oral 120 1200 Other: # Voids 3 3 Active Medications: Current Medications Acetaminophen (Tylenol) 650 mg PO Q4HR PRN PRN Reason: Mild Pain / Temp above 100 Stop: 11/21/17 16:54 Last Admin: 09/24/17 06:09 Dose: 650 mg Al Hydrox/Mg Hydrox/Simethicone (Maalox) 30 ml PO Q4HR PRN PRN Reason: GI DISTRESS Stop: 11/21/17 16:54 Allopurinol (Zyloprim) 300 mg PO DAILY [facility] Stop: 11/22/17 08:59 Last Admin: 10/02/17 09:46 Dose: 300 mg Aripiprazole (Abilify) 15 mg PO HS SHAZIA PRN Reason: Protocol Stop: 12/01/17 06:34 Last Admin: 10/02/17 20:56 Dose: 15 mg Docusate Sodium (Colace) 250 mg PO DAILY [facility] Stop: 11/22/17 08:59 Last Admin: 10/02/17 09:46 Dose: 250 mg Fluoxetine HCl (Prozac) 20 mg PO DAILY SHAZIA PRN Reason: Protocol Stop: 11/22/17 08:59 Last Admin: 10/02/17 09:46 Dose: 20 mg Gabapentin (Neurontin) 100 mg PO TID [facility] Stop: 11/21/17 20:59 Last Admin: 10/02/17 20:56 Dose: 100 mg Glipizide (Glucotrol) 10 mg PO BID [facility] Stop: 11/22/17 08:59 Last Admin: 10/02/17 17:29 Dose: Not Given Lorazepam (Ativan) 0.5 mg PO Q4HR PRN; Protocol PRN Reason: Anxiety Stop: 10/22/17 16:54 Last Admin: 10/02/17 12:30 Dose: 0.5 mg Magnesium Hydroxide (Milk Of Magnesia) 30 ml PO HS PRN PRN Reason: IF ORDERED STOOL SOFTENERS INE Stop: 11/21/17 22:06 Metformin HCl (Glucophage) 1,000 mg PO BID [facility] Stop: 11/22/17 08:59 Last Admin: 10/02/17 17:29 Dose: Not Given Multivitamins/Vitamin C (Theragran) 1 tab PO DAILY [facility] Stop: 11/22/17 08:59 Last Admin: 10/02/17 09:46 Dose: 1 tab Pioglitazone HCl (Actos) 45 mg PO DAILY [facility] Stop: 11/22/17 08:59 Last Admin: 10/02/17 09:46 Dose: 45 mg Quetiapine Fumarate (Seroquel) 300 mg PO HS SHAZIA PRN Reason: Protocol Stop: 11/21/17 20:59 Last Admin: 10/02/17 20:56 Dose: 300 mg Quetiapine Fumarate (Seroquel) 25 mg PO DAILY [facility]IA PRN Reason: Protocol Stop: 12/01/17 08:59 Last Admin: 10/02/17 09:46 Dose: 25 mg Trihexyphenidyl HCl (Artane) 2 mg PO TID [facility] Stop: 11/23/17 08:59 Last Admin: 10/02/17 20:56 Dose: 2 mg Zolpidem Tartrate (Ambien) 5 mg PO HS PRN PRN Reason: Insomnia Stop: 11/21/17 16:54 Last Admin: 10/02/17 20:56 Dose: 5 mg General: demented HEENT: NC/AT, PERRLA, EOMI, anicteric sclerae, throat clear Neck: Supple, No JVD, No thyromegaly, +2 carotid pulse wo bruit Lungs: CTAB Cardiovascular: RRR, Normal S1, Normal S2, without murmur Abdomen: soft, non-tender, non-distended Extremities: clear Neurological: no change - Procedures Procedures: Procedures Procedure Code Date BRONCHOSCOPY/LUNG BX EACH 62595 05/01/01 C.A.T. SCAN OF HEAD 87.03 09/16/95 CLOSED ENDOSCOPIC BIOPSY OF LUNG 33.27 05/01/01 DX BRONCHOSCOPE/BRUSH 73916 05/01/01 ELECTROCARDIOGRAPH MONIT 89.54 09/16/95 ENDOSCOPIC BRONCHIAL BX 33.24 05/01/01 EXC H-F-NK-SP B9+SADE 2.1-3 72893 08/08/99 GROUP PSYCHOTHERAPY 20638 12/15/01 NASAL LACERATION SUTURE 21.81 09/16/95 OTHER GROUP THERAPY 94.44 12/15/01 OTHER LOCAL DESTRUC SKIN 86.3 08/08/99 OXYGEN ENRICHMENT NEC 93.96 09/16/95 PHYSICAL THERAPY NEC 93.39 09/16/95 RPR F/E/E/N/L/M 2.5 CM/< 12448 09/16/95 Internal Medicine Assmt/Plan - Assessment Assessment: 1.DM. 2.GOUTY ARTHRITIS. 3.DEMENTIA. 4.PSYCHOSIS. - Plan Plan: CONTINUE ON CURRENT MEDICATION AND DIET. Nutritional Asmnt/Malnutr-PDOC - Dietary Evaluation Malnutrition Findings (Please click <Entered> for more info): Nutritional Asmnt/Malnutrition Start: 09/27/17 10: 26 Text: Status: Complete Freq: Document 09/27/17 10:26 MMABDI (Rec: 09/27/17 10:44 [email or web address] VINCE- [email or web address]) Nutritional Asmnt/Malnutrition Patient General Information Nutritional Screening Moderate Risk Diagnosis Psychosis Pertinent Medical Hx/Surgical Hx DM, gout, dementia, psychosis Subjective Information Patient was admitted from SNF. Current Diet Order/ Nutrition Support Mechanical soft ground, 60 gm CCHO Patient / S.O Not Indicated Pertinent Medications maalox, colace, glipizide, MOM , Metformin, Theragran Pertinent Labs (09/22) WNL Nutritional Hx/Data Height 1.68 m Height (Calculated Centimeters) 167.6 Current Weight (lbs) 63.503 kg Weight (Calculated Kilograms) 63.5 Weight (Calculated Grams) 49214.9 [place] Body Weight 142 % [place] Body Weight 98 Body Mass Index (BMI) 22.6 Weight Status Approriate GI Symptoms GI Symptoms None Last BM 09/26 x 1 Difficult in: None Food Allergies No Cultural/Ethnic/Zoroastrian Belief None indicated Usual diet at home Unknown Skin Integrity/Comment: Michael 19, Intact Current %PO Good (75-100%) Estimated Nutritional Goals BEE in Kcals: Using Current wt Calories/Kcals/Kg 25-30 kcal/kg using 63.6kg CBW Kcals Calculated ~1509-6722 kcal/day (25-30 kcal/kg) Protein: Using Current wt Protein g/k gm/kg Protein Calculated ~65 gm/day Fluid: ml ~7241-4238 ml/day (1 ml/kcal) Nutritional Problem 1. Problem Problem no nutrition diagnosis at this time. Intervention/Recommendation Comments 1. Continue current diet order as tolerated by patient. Expected Outcomes/Goals Expected Outcomes/Goals Oral intake to meet >75% of nutrient needs, weight stable, nutrition related labs remain WNL
[2017-10-03] MEDS: Multivitamin Tab PO SCH (08:14)
--- NOTE | 2017-10-03 19:53 | Internal Medicine Prog Note ---
Internal Medicine Subjective - Subjective Service Date: 10/03/17 Patient seen and examined:: with staff Patient is:: arousable, in bed, confused Per staff patient has:: no adverse event Internal Medicine Objective - Results Result Diagrams: 09/22/17 14:35 09/22/17 14:35 Recent Labs: Laboratory Last Values WBC 9.0 Th/cmm (4.8-10.8) 09/22/17 14:35 RBC 4.87 Mil/cmm (3.80-5.80) 09/22/17 14:35 Hgb 13.8 gm/dL (12-16) 09/22/17 14:35 Hct 42.4 % (41.0-60) 09/22/17 14:35 MCV 87.1 fl (80-99) 09/22/17 14:35 MCH 28.3 pg (27.0-31.0) 09/22/17 14:35 MCHC Differential 32.5 pg (28.0-36.0) 09/22/17 14:35 RDW 15.5 % (11.5-20.0) 09/22/17 14:35 Plt Count 249 Th/cmm (150-400) 09/22/17 14:35 MPV 6.9 fl 09/22/17 14:35 Neutrophils % 81.4 % (40.0-80.0) H 09/22/17 14:35 Lymphocytes % 8.3 % (20.0-50.0) L 09/22/17 14:35 Monocytes % 8.5 % (2.0-10.0) 09/22/17 14:35 Eosinophils % 1.5 % (0.0-5.0) 09/22/17 14:35 Basophils % 0.3 % (0.0-2.0) 09/22/17 14:35 Sodium 137 mEq/L (136-145) 09/22/17 14:35 Potassium 4.3 mEq/L (3.5-5.1) 09/22/17 14:35 Chloride 100 mEq/L (98-107) 09/22/17 14:35 Carbon Dioxide 29.1 mEq/L (21.0-31.0) 09/22/17 14:35 Anion Gap 12.2 (7.0-16.0) 09/22/17 14:35 BUN 19 mg/dL (7-25) 09/22/17 14:35 Creatinine 0.8 mg/dL (0.7-1.3) 09/22/17 14:35 Est GFR ( Amer) TNP 09/22/17 14:35 Est GFR (Non-Af Amer) TNP 09/22/17 14:35 BUN/Creatinine Ratio 23.8 09/22/17 14:35 Glucose 75 mg/dL (70-105) 09/22/17 14:35 POC Glucose 151 MG/DL (70 - 105) H 10/02/17 06:11 Hemoglobin A1c % 4.9 % (4.0-6.0) 09/22/17 14:35 Calcium 9.5 mg/dL (8.6-10.3) 09/22/17 14:35 Total Bilirubin 0.5 mg/dL (0.3-1.0) 09/22/17 14:35 AST 19 U/L (13-39) 09/22/17 14:35 ALT 16 U/L (7-52) 09/22/17 14:35 Alkaline Phosphatase 74 U/L (34-104) 09/22/17 14:35 Total Protein 6.8 gm/dL (6.0-8.3) 09/22/17 14:35 Albumin 4.2 gm/dL (4.2-5.5) 09/22/17 14:35 Globulin 2.6 gm/dL 09/22/17 14:35 Albumin/Globulin Ratio 1.6 (1.0-1.8) 09/22/17 14:35 Triglycerides 100 mg/dL (<150) 09/22/17 14:35 Cholesterol 128 mg/dL (<200) 09/22/17 14:35 LDL Cholesterol Direct 74 mg/dL (75-193) L 09/22/17 14:35 HDL Cholesterol 49 mg/dL (23-92) 09/22/17 14:35 TSH 1.28 uIU/ml (0.34-5.60) 09/22/17 14:35 Salicylates < 25.0 mg/L (30.0-100.0) L 09/22/17 14:35 Acetaminophen < 10.0 ug/mL (10.0-30.0) L 09/22/17 14:35 Ethyl Alcohol < 10 mg/dL (0-10) 09/22/17 14:35 RPR NONREACTIVE (NONREACTIVE) 09/22/17 14:35 - Physical Exam Vitals and I&O: Vital Signs Temp 98.5 F 10/03/17 15:44 Pulse 85 10/03/17 15:44 Resp 19 10/03/17 15:44 BP 129/98 10/03/17 15:44 Pulse Ox 97 10/03/17 15:44 Intake & Output 10/03/17 10/03/17 10/04/17 06:59 18:59 06:59 Intake Total 1200 Balance 1200 Intake: Oral 1200 Other: # Voids 3 # Bowel Movements 1 Active Medications: Current Medications Acetaminophen (Tylenol) 650 mg PO Q4HR PRN PRN Reason: Mild Pain / Temp above 100 Stop: 11/21/17 16:54 Last Admin: 09/24/17 06:09 Dose: 650 mg Al Hydrox/Mg Hydrox/Simethicone (Maalox) 30 ml PO Q4HR PRN PRN Reason: GI DISTRESS Stop: 11/21/17 16:54 Allopurinol (Zyloprim) 300 mg PO DAILY [facility] Stop: 11/22/17 08:59 Last Admin: 10/03/17 08:13 Dose: 300 mg Aripiprazole (Abilify) 5 mg PO HS [facility] PRN Reason: Protocol Stop: 12/02/17 20:59 Docusate Sodium (Colace) 250 mg PO DAILY [facility] Stop: 11/22/17 08:59 Last Admin: 10/03/17 08:14 Dose: 250 mg Fluoxetine HCl (Prozac) 20 mg PO DAILY [facility] PRN Reason: Protocol Stop: 11/22/17 08:59 Last Admin: 10/03/17 08:14 Dose: 20 mg Gabapentin (Neurontin) 100 mg PO TID [facility] Stop: 11/21/17 20:59 Last Admin: 10/03/17 13:22 Dose: 100 mg Glipizide (Glucotrol) 10 mg PO BID [facility] Stop: 11/22/17 08:59 Last Admin: 10/03/17 16:32 Dose: 10 mg Lorazepam (Ativan) 0.5 mg PO Q4HR PRN; Protocol PRN Reason: Anxiety Stop: 10/22/17 16:54 Last Admin: 10/02/17 12:30 Dose: 0.5 mg Magnesium Hydroxide (Milk Of Magnesia) 30 ml PO HS PRN PRN Reason: IF ORDERED STOOL SOFTENERS INE Stop: 11/21/17 22:06 Metformin HCl (Glucophage) 1,000 mg PO BID [facility] Stop: 11/22/17 08:59 Last Admin: 10/03/17 16:32 Dose: 1,000 mg Multivitamins/Vitamin C (Theragran) 1 tab PO DAILY [facility] Stop: 11/22/17 08:59 Last Admin: 10/03/17 08:14 Dose: 1 tab Pioglitazone HCl (Actos) 45 mg PO DAILY [facility] Stop: 11/22/17 08:59 Last Admin: 10/03/17 09:40 Dose: Not Given Quetiapine Fumarate (Seroquel) 300 mg PO HS [facility] PRN Reason: Protocol Stop: 11/21/17 20:59 Last Admin: 10/02/17 20:56 Dose: 300 mg Quetiapine Fumarate (Seroquel) 25 mg PO DAILY [facility] PRN Reason: Protocol Stop: 12/01/17 08:59 Last Admin: 10/03/17 08:14 Dose: 25 mg Trihexyphenidyl HCl (Artane) 2 mg PO TID [facility] Stop: 11/23/17 08:59 Last Admin: 10/03/17 13:22 Dose: 2 mg Zolpidem Tartrate (Ambien) 5 mg PO HS PRN PRN Reason: Insomnia Stop: 11/21/17 16:54 Last Admin: 10/02/17 20:56 Dose: 5 mg General: demented HEENT: NC/AT, PERRLA, EOMI, anicteric sclerae, throat clear Neck: Supple, No JVD, No thyromegaly, +2 carotid pulse wo bruit Lungs: CTAB Cardiovascular: RRR, Normal S1, Normal S2, without murmur Abdomen: soft, non-tender, non-distended Extremities: clear Neurological: no change - Procedures Procedures: Procedures Procedure Code Date BRONCHOSCOPY/LUNG BX EACH 44377 05/01/01 C.A.T. SCAN OF HEAD 87.03 09/16/95 CLOSED ENDOSCOPIC BIOPSY OF LUNG 33.27 05/01/01 DX BRONCHOSCOPE/BRUSH 62734 12/14/01 ELECTROCARDIOGRAPH MONIT 89.54 09/16/95 ENDOSCOPIC BRONCHIAL BX 33.24 05/01/01 EXC H-F-NK-SP B9+SADE 2.1-3 22748 08/08/99 GROUP PSYCHOTHERAPY 00551 12/15/01 NASAL LACERATION SUTURE 21.81 09/16/95 OTHER GROUP THERAPY 94.44 12/15/01 OTHER LOCAL DESTRUC SKIN 86.3 08/08/99 OXYGEN ENRICHMENT NEC 93.96 09/16/95 PHYSICAL THERAPY NEC 93.39 09/16/95 RPR F/E/E/N/L/M 2.5 CM/< 52449 09/16/95 Internal Medicine Assmt/Plan - Assessment Assessment: 1.DM. 2.GOUTY ARTHRITIS. 3.DEMENTIA. 4.PSYCHOSIS. - Plan Plan: CONTINUE ON CURRENT MEDICATION AND DIET. Nutritional Asmnt/Malnutr-PDOC - Dietary Evaluation Malnutrition Findings (Please click <Entered> for more info): Nutritional Asmnt/Malnutrition Start: 09/27/17 10: 26 Text: Status: Complete Freq: Document 09/27/17 10:26 MMABDI (Rec: 09/27/17 10:44 MMULHERN VINCE [email or web address]) Nutritional Asmnt/Malnutrition Patient General Information Nutritional Screening Moderate Risk Diagnosis Psychosis Pertinent Medical Hx/Surgical Hx DM, gout, dementia, psychosis Subjective Information Patient was admitted from SNF. Current Diet Order/ Nutrition Support Mechanical soft ground, 60 gm CCHO Patient / S.O Not Indicated Pertinent Medications maalox, colace, glipizide, MOM , Metformin, Theragran Pertinent Labs (09/22) WNL Nutritional Hx/Data Height 1.68 m Height (Calculated Centimeters) 167.6 Current Weight (lbs) 63.503 kg Weight (Calculated Kilograms) 63.5 Weight (Calculated Grams) 80477.9 [place] Body Weight 142 % [place] Body Weight 98 Body Mass Index (BMI) 22.6 Weight Status Approriate GI Symptoms GI Symptoms None Last BM 09/26 x 1 Difficult in: None Food Allergies No Cultural/Ethnic/Hindu Belief None indicated Usual diet at home Unknown Skin Integrity/Comment: iMchael 19, Intact Current %PO Good (75-100%) Estimated Nutritional Goals BEE in Kcals: Using Current wt Calories/Kcals/Kg 25-30 kcal/kg using 63.6kg CBW Kcals Calculated ~4354-6124 kcal/day (25-30 kcal/kg) Protein: Using Current wt Protein g/k gm/kg Protein Calculated ~65 gm/day Fluid: ml ~4065-9511 ml/day (1 ml/kcal) Nutritional Problem 1. Problem Problem no nutrition diagnosis at this time. Intervention/Recommendation Comments 1. Continue current diet order as tolerated by patient. Expected Outcomes/Goals Expected Outcomes/Goals Oral intake to meet >75% of nutrient needs, weight stable, nutrition related labs remain WNL
--- NOTE | 2017-10-03 21:59 | Progress Notes ---
DATE: SUBJECTIVE: Chart reviewed and the patient interviewed. Also discussed the patient's condition with the staff and reviewed the records and labs. The patient is still confused. The patient also is depressed and he is isolative and withdrawn and interacting minimally with others. He also is still in angry and in irritable mood at times and wants to be left alone. Otherwise, the patient is compliant with taking his medications with no side effects of medications. ASSESSMENT: The patient still needs close monitoring. TREATMENT PLAN: We will continue monitoring his behavior and his condition closely. Also, because the patient has higher dose of Seroquel, we will decrease Abilify to 5 mg every day and will continue Seroquel 25 mg twice a day and 300 mg at bedtime and will continue to follow up closely. [facility]# [id number]
[2017-10-04] MEDS: Multivitamin Tab PO SCH (08:20)
--- NOTE | 2017-10-04 16:43 | Internal Medicine Prog Note ---
Internal Medicine Subjective - Subjective Service Date: 10/04/17 Patient seen and examined:: with staff Patient is:: arousable, in bed, confused Per staff patient has:: no adverse event Internal Medicine Objective - Results Result Diagrams: 09/22/17 14:35 09/22/17 14:35 Recent Labs: Laboratory Last Values WBC 9.0 Th/cmm (4.8-10.8) 09/22/17 14:35 RBC 4.87 Mil/cmm (3.80-5.80) 09/22/17 14:35 Hgb 13.8 gm/dL (12-16) 09/22/17 14:35 Hct 42.4 % (41.0-60) 09/22/17 14:35 MCV 87.1 fl (80-99) 09/22/17 14:35 MCH 28.3 pg (27.0-31.0) 09/22/17 14:35 MCHC Differential 32.5 pg (28.0-36.0) 09/22/17 14:35 RDW 15.5 % (11.5-20.0) 09/22/17 14:35 Plt Count 249 Th/cmm (150-400) 09/22/17 14:35 MPV 6.9 fl 09/22/17 14:35 Neutrophils % 81.4 % (40.0-80.0) H 09/22/17 14:35 Lymphocytes % 8.3 % (20.0-50.0) L 09/22/17 14:35 Monocytes % 8.5 % (2.0-10.0) 09/22/17 14:35 Eosinophils % 1.5 % (0.0-5.0) 09/22/17 14:35 Basophils % 0.3 % (0.0-2.0) 09/22/17 14:35 Sodium 137 mEq/L (136-145) 09/22/17 14:35 Potassium 4.3 mEq/L (3.5-5.1) 09/22/17 14:35 Chloride 100 mEq/L (98-107) 09/22/17 14:35 Carbon Dioxide 29.1 mEq/L (21.0-31.0) 09/22/17 14:35 Anion Gap 12.2 (7.0-16.0) 09/22/17 14:35 BUN 19 mg/dL (7-25) 09/22/17 14:35 Creatinine 0.8 mg/dL (0.7-1.3) 09/22/17 14:35 Est GFR ( Amer) TNP 09/22/17 14:35 Est GFR (Non-Af Amer) TNP 09/22/17 14:35 BUN/Creatinine Ratio 23.8 09/22/17 14:35 Glucose 75 mg/dL (70-105) 09/22/17 14:35 POC Glucose 109 MG/DL (70 - 105) H 10/04/17 12:59 Hemoglobin A1c % 4.9 % (4.0-6.0) 09/22/17 14:35 Calcium 9.5 mg/dL (8.6-10.3) 09/22/17 14:35 Total Bilirubin 0.5 mg/dL (0.3-1.0) 09/22/17 14:35 AST 19 U/L (13-39) 09/22/17 14:35 ALT 16 U/L (7-52) 09/22/17 14:35 Alkaline Phosphatase 74 U/L (34-104) 09/22/17 14:35 Total Protein 6.8 gm/dL (6.0-8.3) 09/22/17 14:35 Albumin 4.2 gm/dL (4.2-5.5) 09/22/17 14:35 Globulin 2.6 gm/dL 09/22/17 14:35 Albumin/Globulin Ratio 1.6 (1.0-1.8) 09/22/17 14:35 Triglycerides 100 mg/dL (<150) 09/22/17 14:35 Cholesterol 128 mg/dL (<200) 09/22/17 14:35 LDL Cholesterol Direct 74 mg/dL (75-193) L 09/22/17 14:35 HDL Cholesterol 49 mg/dL (23-92) 09/22/17 14:35 TSH 1.28 uIU/ml (0.34-5.60) 09/22/17 14:35 Salicylates < 25.0 mg/L (30.0-100.0) L 09/22/17 14:35 Acetaminophen < 10.0 ug/mL (10.0-30.0) L 09/22/17 14:35 Ethyl Alcohol < 10 mg/dL (0-10) 09/22/17 14:35 RPR NONREACTIVE (NONREACTIVE) 09/22/17 14:35 - Physical Exam Vitals and I&O: Vital Signs Temp 97.6 F 10/04/17 14:00 Pulse 82 10/04/17 14:00 Resp 18 10/04/17 14:00 BP 124/60 10/04/17 14:00 Pulse Ox 96 10/04/17 14:00 Intake & Output 10/03/17 10/04/17 10/04/17 18:59 06:59 18:59 Intake Total 1200 482 Balance 1200 482 Intake: Oral 1200 482 Other: # Voids 3 4 # Bowel Movements 1 Stool Characteristics Soft Soft Active Medications: Current Medications Acetaminophen (Tylenol) 650 mg PO Q4HR PRN PRN Reason: Mild Pain / Temp above 100 Stop: 11/21/17 16:54 Last Admin: 09/24/17 06:09 Dose: 650 mg Al Hydrox/Mg Hydrox/Simethicone (Maalox) 30 ml PO Q4HR PRN PRN Reason: GI DISTRESS Stop: 11/21/17 16:54 Allopurinol (Zyloprim) 300 mg PO DAILY [facility] Stop: 11/22/17 08:59 Last Admin: 10/04/17 08:19 Dose: 300 mg Aripiprazole (Abilify) 5 mg PO HS [facility] PRN Reason: Protocol Stop: 12/02/17 20:59 Last Admin: 10/03/17 20:32 Dose: 5 mg Docusate Sodium (Colace) 250 mg PO DAILY [facility] Stop: 11/22/17 08:59 Last Admin: 10/04/17 08:19 Dose: 250 mg Fluoxetine HCl 20 mg/ (Fluoxetine HCl 10 mg) 30 mg PO DAILY [facility] Stop: 12/04/17 08:59 Gabapentin (Neurontin) 100 mg PO TID [facility] Stop: 11/21/17 20:59 Last Admin: 10/04/17 08:20 Dose: 100 mg Glipizide (Glucotrol) 10 mg PO BID [facility] Stop: 11/22/17 08:59 Last Admin: 10/04/17 08:19 Dose: 10 mg Lorazepam (Ativan) 0.5 mg PO Q4HR PRN; Protocol PRN Reason: Anxiety Stop: 10/22/17 16:54 Last Admin: 10/04/17 00:19 Dose: 0.5 mg Magnesium Hydroxide (Milk Of Magnesia) 30 ml PO HS PRN PRN Reason: IF ORDERED STOOL SOFTENERS INE Stop: 11/21/17 22:06 Metformin HCl (Glucophage) 1,000 mg PO BID [facility] Stop: 11/22/17 08:59 Last Admin: 10/04/17 08:19 Dose: 1,000 mg Multivitamins/Vitamin C (Theragran) 1 tab PO DAILY [facility] Stop: 11/22/17 08:59 Last Admin: 10/04/17 08:20 Dose: 1 tab Pioglitazone HCl (Actos) 45 mg PO DAILY [facility] Stop: 11/22/17 08:59 Last Admin: 10/04/17 08:19 Dose: 45 mg Quetiapine Fumarate (Seroquel) 300 mg PO HS [facility] PRN Reason: Protocol Stop: 11/21/17 20:59 Last Admin: 10/03/17 20:32 Dose: 300 mg Quetiapine Fumarate (Seroquel) 25 mg PO DAILY [facility] PRN Reason: Protocol Stop: 12/01/17 08:59 Last Admin: 10/04/17 08:20 Dose: 25 mg Trihexyphenidyl HCl (Artane) 2 mg PO TID [facility] Stop: 11/23/17 08:59 Last Admin: 10/04/17 08:19 Dose: 2 mg Zolpidem Tartrate (Ambien) 5 mg PO HS PRN PRN Reason: Insomnia Stop: 11/21/17 16:54 Last Admin: 10/04/17 00:19 Dose: 5 mg General: demented HEENT: NC/AT, PERRLA, EOMI, anicteric sclerae, throat clear Neck: Supple, No JVD, No thyromegaly, +2 carotid pulse wo bruit Lungs: CTAB Cardiovascular: RRR, Normal S1, Normal S2, without murmur Abdomen: soft, non-tender, non-distended Extremities: clear Neurological: no change - Procedures Procedures: Procedures Procedure Code Date BRONCHOSCOPY/LUNG BX EACH 44439 05/01/01 C.A.T. SCAN OF HEAD 87.03 09/16/95 CLOSED ENDOSCOPIC BIOPSY OF LUNG 33.27 05/01/01 DX BRONCHOSCOPE/BRUSH 08137 05/01/01 ELECTROCARDIOGRAPH MONIT 89.54 09/16/95 ENDOSCOPIC BRONCHIAL BX 33.24 05/01/01 EXC H-F-NK-SP B9+SADE 2.1-3 80937 08/08/99 GROUP PSYCHOTHERAPY 73993 12/15/01 NASAL LACERATION SUTURE 21.81 09/16/95 OTHER GROUP THERAPY 94.44 12/15/01 OTHER LOCAL DESTRUC SKIN 86.3 08/08/99 OXYGEN ENRICHMENT NEC 93.96 09/16/95 PHYSICAL THERAPY NEC 93.39 09/16/95 RPR F/E/E/N/L/M 2.5 CM/< 01570 09/16/95 Internal Medicine Assmt/Plan - Assessment Assessment: 1.DM. 2.GOUTY ARTHRITIS. 3.DEMENTIA. 4.PSYCHOSIS. - Plan Plan: CONTINUE ON CURRENT MEDICATION AND DIET. Nutritional Asmnt/Malnutr-PDOC - Dietary Evaluation Malnutrition Findings (Please click <Entered> for more info): Nutritional Asmnt/Malnutrition Start: 09/27/17 10: 26 Text: Status: Complete Freq: Document 09/27/17 10:26 MMABDI (Rec: 09/27/17 10:44 MMULANGELICA VINCE- [email or web address]) Nutritional Asmnt/Malnutrition Patient General Information Nutritional Screening Moderate Risk Diagnosis Psychosis Pertinent Medical Hx/Surgical Hx DM, gout, dementia, psychosis Subjective Information Patient was admitted from SNF. Current Diet Order/ Nutrition Support Mechanical soft ground, 60 gm CCHO Patient / S.O Not Indicated Pertinent Medications maalox, colace, glipizide, MOM , Metformin, Theragran Pertinent Labs (09/22) WNL Nutritional Hx/Data Height 1.68 m Height (Calculated Centimeters) 167.6 Current Weight (lbs) 63.503 kg Weight (Calculated Kilograms) 63.5 Weight (Calculated Grams) 52311.9 [place] Body Weight 142 % [place] Body Weight 98 Body Mass Index (BMI) 22.6 Weight Status Approriate GI Symptoms GI Symptoms None Last BM 09/26 x 1 Difficult in: None Food Allergies No Cultural/Ethnic/Cheondoism Belief None indicated Usual diet at home Unknown Skin Integrity/Comment: Michael 19, Intact Current %PO Good (75-100%) Estimated Nutritional Goals BEE in Kcals: Using Current wt Calories/Kcals/Kg 25-30 kcal/kg using 63.6kg CBW Kcals Calculated ~3988-6389 kcal/day (25-30 kcal/kg) Protein: Using Current wt Protein g/k gm/kg Protein Calculated ~65 gm/day Fluid: ml ~5090-5112 ml/day (1 ml/kcal) Nutritional Problem 1. Problem Problem no nutrition diagnosis at this time. Intervention/Recommendation Comments 1. Continue current diet order as tolerated by patient. Expected Outcomes/Goals Expected Outcomes/Goals Oral intake to meet >75% of nutrient needs, weight stable, nutrition related labs remain WNL
--- NOTE | 2017-10-04 21:09 | Progress Notes ---
DATE: 10/04/[address] Ji. Case discussed with staff of the patient, reviewed records. This is a well-known case to me as I have seen him few days ago covering for Dr. Ji. The patient continues to be depressed. Continues to be isolating, withdrawn, minimal interaction with others. Continues to be irritable, angry when likely left alone. He is compliant with the medication with no side effects. Dr. Ji is tapering him off Abilify. He is on Seroquel 25 mg twice a day. Continues to be unpredictable, impulsive, needing redirection. He is at fall risk because of his age as well as his medication. His current medication is allopurinol 300 mg daily, Abilify 5 mg at bedtime, Prozac 20 mg daily, Neurontin 100 mg 3 times a day, glipizide 10 mg twice a day, metformin 1000 mg twice a day, multivitamin tablet daily, Actos 45 mg daily, Seroquel 300 mg at bedtime and 25 mg daily, Artane 2 mg 3 times a day and Ambien 5 mg at bedtime. No side effects to the medication, no sedation, no nausea, no extrapyramidal symptoms. We will continue outpatient group therapy, milieu therapy, adjust the medications as needed. [facility]# [id number]
[2017-10-05] MEDS: Multivitamin Tab PO SCH (08:29)
--- NOTE | 2017-10-05 20:33 | Internal Medicine Prog Note ---
Internal Medicine Subjective - Subjective Service Date: 10/05/17 Patient seen and examined:: without staff Patient is:: arousable, in bed, confused Per staff patient has:: no adverse event Internal Medicine Objective - Results Result Diagrams: 09/22/17 14:35 09/22/17 14:35 Recent Labs: Laboratory Last Values WBC 9.0 Th/cmm (4.8-10.8) 09/22/17 14:35 RBC 4.87 Mil/cmm (3.80-5.80) 09/22/17 14:35 Hgb 13.8 gm/dL (12-16) 09/22/17 14:35 Hct 42.4 % (41.0-60) 09/22/17 14:35 MCV 87.1 fl (80-99) 09/22/17 14:35 MCH 28.3 pg (27.0-31.0) 09/22/17 14:35 MCHC Differential 32.5 pg (28.0-36.0) 09/22/17 14:35 RDW 15.5 % (11.5-20.0) 09/22/17 14:35 Plt Count 249 Th/cmm (150-400) 09/22/17 14:35 MPV 6.9 fl 09/22/17 14:35 Neutrophils % 81.4 % (40.0-80.0) H 09/22/17 14:35 Lymphocytes % 8.3 % (20.0-50.0) L 09/22/17 14:35 Monocytes % 8.5 % (2.0-10.0) 09/22/17 14:35 Eosinophils % 1.5 % (0.0-5.0) 09/22/17 14:35 Basophils % 0.3 % (0.0-2.0) 09/22/17 14:35 Sodium 137 mEq/L (136-145) 09/22/17 14:35 Potassium 4.3 mEq/L (3.5-5.1) 09/22/17 14:35 Chloride 100 mEq/L (98-107) 09/22/17 14:35 Carbon Dioxide 29.1 mEq/L (21.0-31.0) 09/22/17 14:35 Anion Gap 12.2 (7.0-16.0) 09/22/17 14:35 BUN 19 mg/dL (7-25) 09/22/17 14:35 Creatinine 0.8 mg/dL (0.7-1.3) 09/22/17 14:35 Est GFR ( Amer) TNP 09/22/17 14:35 Est GFR (Non-Af Amer) TNP 09/22/17 14:35 BUN/Creatinine Ratio 23.8 09/22/17 14:35 Glucose 75 mg/dL (70-105) 09/22/17 14:35 POC Glucose 113 MG/DL (70 - 105) H 10/05/17 16:38 Hemoglobin A1c % 4.9 % (4.0-6.0) 09/22/17 14:35 Calcium 9.5 mg/dL (8.6-10.3) 09/22/17 14:35 Total Bilirubin 0.5 mg/dL (0.3-1.0) 09/22/17 14:35 AST 19 U/L (13-39) 09/22/17 14:35 ALT 16 U/L (7-52) 09/22/17 14:35 Alkaline Phosphatase 74 U/L (34-104) 09/22/17 14:35 Total Protein 6.8 gm/dL (6.0-8.3) 09/22/17 14:35 Albumin 4.2 gm/dL (4.2-5.5) 09/22/17 14:35 Globulin 2.6 gm/dL 09/22/17 14:35 Albumin/Globulin Ratio 1.6 (1.0-1.8) 09/22/17 14:35 Triglycerides 100 mg/dL (<150) 09/22/17 14:35 Cholesterol 128 mg/dL (<200) 09/22/17 14:35 LDL Cholesterol Direct 74 mg/dL (75-193) L 09/22/17 14:35 HDL Cholesterol 49 mg/dL (23-92) 09/22/17 14:35 TSH 1.28 uIU/ml (0.34-5.60) 09/22/17 14:35 Salicylates < 25.0 mg/L (30.0-100.0) L 09/22/17 14:35 Acetaminophen < 10.0 ug/mL (10.0-30.0) L 09/22/17 14:35 Ethyl Alcohol < 10 mg/dL (0-10) 09/22/17 14:35 RPR NONREACTIVE (NONREACTIVE) 09/22/17 14:35 - Physical Exam Vitals and I&O: Vital Signs Temp 98.8 F 10/05/17 16:30 Pulse 72 10/05/17 16:30 Resp 20 10/05/17 16:30 BP 115/65 10/05/17 16:30 Pulse Ox 96 10/05/17 16:30 Intake & Output 10/05/17 10/05/17 10/06/17 06:59 18:59 06:59 Intake Total 120 1200 Balance 120 1200 Intake: Oral 120 1200 Other: # Voids 3 4 # Bowel Movements 1 Stool Characteristics Soft Soft Active Medications: Current Medications Acetaminophen (Tylenol) 650 mg PO Q4HR PRN PRN Reason: Mild Pain / Temp above 100 Stop: 11/21/17 16:54 Last Admin: 09/24/17 06:09 Dose: 650 mg Al Hydrox/Mg Hydrox/Simethicone (Maalox) 30 ml PO Q4HR PRN PRN Reason: GI DISTRESS Stop: 11/21/17 16:54 Allopurinol (Zyloprim) 300 mg PO DAILY [facility] Stop: 11/22/17 08:59 Last Admin: 10/05/17 08:29 Dose: 300 mg Aripiprazole (Abilify) 5 mg PO HS [facility] PRN Reason: Protocol Stop: 12/02/17 20:59 Last Admin: 10/04/17 21:00 Dose: 5 mg Docusate Sodium (Colace) 250 mg PO DAILY [facility] Stop: 11/22/17 08:59 Last Admin: 10/05/17 08:29 Dose: 250 mg Fluoxetine HCl 20 mg/ (Fluoxetine HCl 10 mg) 30 mg PO DAILY [facility] Stop: 12/04/17 08:59 Last Admin: 10/05/17 08:30 Dose: 30 mg Gabapentin (Neurontin) 100 mg PO TID [facility] Stop: 11/21/17 20:59 Last Admin: 10/05/17 13:18 Dose: 100 mg Glipizide (Glucotrol) 10 mg PO BID [facility] Stop: 11/22/17 08:59 Last Admin: 10/05/17 16:43 Dose: 10 mg Lorazepam (Ativan) 0.5 mg PO Q4HR PRN; Protocol PRN Reason: Anxiety Stop: 10/22/17 16:54 Last Admin: 10/04/17 00:19 Dose: 0.5 mg Magnesium Hydroxide (Milk Of Magnesia) 30 ml PO HS PRN PRN Reason: IF ORDERED STOOL SOFTENERS INE Stop: 11/21/17 22:06 Metformin HCl (Glucophage) 1,000 mg PO BID [facility] Stop: 11/22/17 08:59 Last Admin: 10/05/17 16:44 Dose: 1,000 mg Multivitamins/Vitamin C (Theragran) 1 tab PO DAILY [facility] Stop: 11/22/17 08:59 Last Admin: 10/05/17 08:29 Dose: 1 tab Pioglitazone HCl (Actos) 45 mg PO DAILY [facility] Stop: 11/22/17 08:59 Last Admin: 10/05/17 08:29 Dose: 45 mg Quetiapine Fumarate (Seroquel) 300 mg PO HS [facility] PRN Reason: Protocol Stop: 11/21/17 20:59 Last Admin: 10/04/17 21:01 Dose: 300 mg Quetiapine Fumarate (Seroquel) 25 mg PO DAILY [facility] PRN Reason: Protocol Stop: 12/01/17 08:59 Last Admin: 10/05/17 08:30 Dose: 25 mg Trihexyphenidyl HCl (Artane) 2 mg PO TID [facility] Stop: 11/23/17 08:59 Last Admin: 10/05/17 13:18 Dose: 2 mg Zolpidem Tartrate (Ambien) 5 mg PO HS PRN PRN Reason: Insomnia Stop: 11/21/17 16:54 Last Admin: 10/04/17 21:01 Dose: 5 mg General: demented HEENT: NC/AT, PERRLA, EOMI, anicteric sclerae, throat clear Neck: Supple, No JVD, No thyromegaly, +2 carotid pulse wo bruit Lungs: CTAB Cardiovascular: RRR, Normal S1, Normal S2, without murmur Abdomen: soft, non-tender, non-distended Extremities: clear Neurological: no change - Procedures Procedures: Procedures Procedure Code Date BRONCHOSCOPY/LUNG BX EACH 15242 05/01/01 C.A.T. SCAN OF HEAD 87.03 09/16/95 CLOSED ENDOSCOPIC BIOPSY OF LUNG 33.27 05/01/01 DX BRONCHOSCOPE/BRUSH 04262 05/01/01 ELECTROCARDIOGRAPH MONIT 89.54 09/16/95 ENDOSCOPIC BRONCHIAL BX 33.24 05/01/01 EXC H-F-NK-SP B9+SADE 2.1-3 38498 08/08/99 GROUP PSYCHOTHERAPY 12685 12/15/01 NASAL LACERATION SUTURE 21.81 09/16/95 OTHER GROUP THERAPY 94.44 12/15/01 OTHER LOCAL DESTRUC SKIN 86.3 08/08/99 OXYGEN ENRICHMENT NEC 93.96 09/16/95 PHYSICAL THERAPY NEC 93.39 09/16/95 RPR F/E/E/N/L/M 2.5 CM/< 71654 09/16/95 Internal Medicine Assmt/Plan - Assessment Assessment: 1.DM. 2.GOUTY ARTHRITIS. 3.DEMENTIA. 4.PSYCHOSIS. - Plan Plan: CONTINUE ON CURRENT MEDICATION AND DIET. Nutritional Asmnt/Malnutr-PDOC - Dietary Evaluation Malnutrition Findings (Please click <Entered> for more info): Nutritional Asmnt/Malnutrition Start: 09/27/17 10: 26 Text: Status: Complete Freq: Document 09/27/17 10:26 MMULN (Rec: 09/27/17 10:44 MMULHERN VINCE- [email or web address]) Nutritional Asmnt/Malnutrition Patient General Information Nutritional Screening Moderate Risk Diagnosis Psychosis Pertinent Medical Hx/Surgical Hx DM, gout, dementia, psychosis Subjective Information Patient was admitted from SNF. Current Diet Order/ Nutrition Support Mechanical soft ground, 60 gm CCHO Patient / S.O Not Indicated Pertinent Medications maalox, colace, glipizide, MOM , Metformin, Theragran Pertinent Labs (09/22) WNL Nutritional Hx/Data Height 1.68 m Height (Calculated Centimeters) 167.6 Current Weight (lbs) 63.503 kg Weight (Calculated Kilograms) 63.5 Weight (Calculated Grams) 74083.9 [place] Body Weight 142 % [place] Body Weight 98 Body Mass Index (BMI) 22.6 Weight Status Approriate GI Symptoms GI Symptoms None Last BM 09/26 x 1 Difficult in: None Food Allergies No Cultural/Ethnic/Sabianist Belief None indicated Usual diet at home Unknown Skin Integrity/Comment: Michael 19, Intact Current %PO Good (75-100%) Estimated Nutritional Goals BEE in Kcals: Using Current wt Calories/Kcals/Kg 25-30 kcal/kg using 63.6kg CBW Kcals Calculated ~2498-5977 kcal/day (25-30 kcal/kg) Protein: Using Current wt Protein g/k gm/kg Protein Calculated ~65 gm/day Fluid: ml ~2359-2297 ml/day (1 ml/kcal) Nutritional Problem 1. Problem Problem no nutrition diagnosis at this time. Intervention/Recommendation Comments 1. Continue current diet order as tolerated by patient. Expected Outcomes/Goals Expected Outcomes/Goals Oral intake to meet >75% of nutrient needs, weight stable, nutrition related labs remain WNL
--- NOTE | 2017-10-05 21:02 | Progress Notes ---
DATE: 10/05/2017 Case was discussed with staff of the patient, reviewed records. The patient was described by the staff yesterday to be ____ keeping things. Continues to need redirection. Continues to have poor insight. Continues to be unpredictable and impulsive. I did increase Prozac yesterday to 30 mg a day with no side effects, no sedation, no nausea, no extrapyramidal symptoms. We will continue to work with the patient group therapy, milieu therapy, and adjust the medications as needed. JOB# [id number]
[2017-10-06] MEDS: Multivitamin Tab PO SCH (09:05)
--- NOTE | 2017-10-06 13:57 | Internal Medicine Prog Note ---
Internal Medicine Subjective - Subjective Service Date: 10/06/17 Patient seen and examined:: with staff Patient is:: arousable, in bed, confused Per staff patient has:: no adverse event Internal Medicine Objective - Results Result Diagrams: 09/22/17 14:35 09/22/17 14:35 Recent Labs: Laboratory Last Values WBC 9.0 Th/cmm (4.8-10.8) 09/22/17 14:35 RBC 4.87 Mil/cmm (3.80-5.80) 09/22/17 14:35 Hgb 13.8 gm/dL (12-16) 09/22/17 14:35 Hct 42.4 % (41.0-60) 09/22/17 14:35 MCV 87.1 fl (80-99) 09/22/17 14:35 MCH 28.3 pg (27.0-31.0) 09/22/17 14:35 MCHC Differential 32.5 pg (28.0-36.0) 09/22/17 14:35 RDW 15.5 % (11.5-20.0) 09/22/17 14:35 Plt Count 249 Th/cmm (150-400) 09/22/17 14:35 MPV 6.9 fl 09/22/17 14:35 Neutrophils % 81.4 % (40.0-80.0) H 09/22/17 14:35 Lymphocytes % 8.3 % (20.0-50.0) L 09/22/17 14:35 Monocytes % 8.5 % (2.0-10.0) 09/22/17 14:35 Eosinophils % 1.5 % (0.0-5.0) 09/22/17 14:35 Basophils % 0.3 % (0.0-2.0) 09/22/17 14:35 Sodium 137 mEq/L (136-145) 09/22/17 14:35 Potassium 4.3 mEq/L (3.5-5.1) 09/22/17 14:35 Chloride 100 mEq/L (98-107) 09/22/17 14:35 Carbon Dioxide 29.1 mEq/L (21.0-31.0) 09/22/17 14:35 Anion Gap 12.2 (7.0-16.0) 09/22/17 14:35 BUN 19 mg/dL (7-25) 09/22/17 14:35 Creatinine 0.8 mg/dL (0.7-1.3) 09/22/17 14:35 Est GFR ( Amer) TNP 09/22/17 14:35 Est GFR (Non-Af Amer) TNP 09/22/17 14:35 BUN/Creatinine Ratio 23.8 09/22/17 14:35 Glucose 75 mg/dL (70-105) 09/22/17 14:35 POC Glucose 106 MG/DL (70 - 105) H 10/06/17 06:51 Hemoglobin A1c % 4.9 % (4.0-6.0) 09/22/17 14:35 Calcium 9.5 mg/dL (8.6-10.3) 09/22/17 14:35 Total Bilirubin 0.5 mg/dL (0.3-1.0) 09/22/17 14:35 AST 19 U/L (13-39) 09/22/17 14:35 ALT 16 U/L (7-52) 09/22/17 14:35 Alkaline Phosphatase 74 U/L (34-104) 09/22/17 14:35 Total Protein 6.8 gm/dL (6.0-8.3) 09/22/17 14:35 Albumin 4.2 gm/dL (4.2-5.5) 09/22/17 14:35 Globulin 2.6 gm/dL 09/22/17 14:35 Albumin/Globulin Ratio 1.6 (1.0-1.8) 09/22/17 14:35 Triglycerides 100 mg/dL (<150) 09/22/17 14:35 Cholesterol 128 mg/dL (<200) 09/22/17 14:35 LDL Cholesterol Direct 74 mg/dL (75-193) L 09/22/17 14:35 HDL Cholesterol 49 mg/dL (23-92) 09/22/17 14:35 TSH 1.28 uIU/ml (0.34-5.60) 09/22/17 14:35 Salicylates < 25.0 mg/L (30.0-100.0) L 09/22/17 14:35 Acetaminophen < 10.0 ug/mL (10.0-30.0) L 09/22/17 14:35 Ethyl Alcohol < 10 mg/dL (0-10) 09/22/17 14:35 RPR NONREACTIVE (NONREACTIVE) 09/22/17 14:35 - Physical Exam Vitals and I&O: Vital Signs Temp 98 F 10/06/17 06:33 Pulse 87 10/06/17 06:33 Resp 20 10/06/17 06:33 BP 130/84 10/06/17 06:33 Pulse Ox 98 10/06/17 06:33 Intake & Output 10/05/17 10/06/17 10/06/17 18:59 06:59 18:59 Intake Total 1200 120 Balance 1200 120 Intake: Oral 1200 120 Other: # Voids 4 3 # Bowel Movements 1 Stool Characteristics Soft Soft Active Medications: Current Medications Acetaminophen (Tylenol) 650 mg PO Q4HR PRN PRN Reason: Mild Pain / Temp above 100 Stop: 11/21/17 16:54 Last Admin: 09/24/17 06:09 Dose: 650 mg Al Hydrox/Mg Hydrox/Simethicone (Maalox) 30 ml PO Q4HR PRN PRN Reason: GI DISTRESS Stop: 11/21/17 16:54 Allopurinol (Zyloprim) 300 mg PO DAILY [facility] Stop: 11/22/17 08:59 Last Admin: 10/06/17 09:06 Dose: 300 mg Docusate Sodium (Colace) 250 mg PO DAILY [facility] Stop: 11/22/17 08:59 Last Admin: 10/06/17 09:06 Dose: 250 mg Fluoxetine HCl 20 mg/ (Fluoxetine HCl 10 mg) 30 mg PO DAILY [facility] Stop: 12/04/17 08:59 Last Admin: 10/06/17 09:05 Dose: 30 mg Gabapentin (Neurontin) 100 mg PO TID [facility] Stop: 11/21/17 20:59 Last Admin: 10/06/17 09:06 Dose: 100 mg Glipizide (Glucotrol) 10 mg PO BID [facility] Stop: 11/22/17 08:59 Last Admin: 10/06/17 09:07 Dose: Not Given Lorazepam (Ativan) 0.5 mg PO Q4HR PRN; Protocol PRN Reason: Anxiety Stop: 10/22/17 16:54 Last Admin: 10/06/17 09:32 Dose: 0.5 mg Magnesium Hydroxide (Milk Of Magnesia) 30 ml PO HS PRN PRN Reason: IF ORDERED STOOL SOFTENERS INE Stop: 11/21/17 22:06 Metformin HCl (Glucophage) 1,000 mg PO BID [facility] Stop: 11/22/17 08:59 Last Admin: 10/06/17 09:06 Dose: 1,000 mg Multivitamins/Vitamin C (Theragran) 1 tab PO DAILY [facility] Stop: 11/22/17 08:59 Last Admin: 10/06/17 09:05 Dose: 1 tab Pioglitazone HCl (Actos) 45 mg PO DAILY [facility] Stop: 11/22/17 08:59 Last Admin: 10/06/17 09:06 Dose: 45 mg Quetiapine Fumarate (Seroquel) 300 mg PO HS [facility] PRN Reason: Protocol Stop: 11/21/17 20:59 Last Admin: 10/05/17 21:02 Dose: 300 mg Quetiapine Fumarate (Seroquel) 25 mg PO DAILY [facility] PRN Reason: Protocol Stop: 12/01/17 08:59 Last Admin: 10/06/17 09:05 Dose: 25 mg Trihexyphenidyl HCl (Artane) 2 mg PO TID [facility] Stop: 11/23/17 08:59 Last Admin: 10/06/17 09:06 Dose: 2 mg Zolpidem Tartrate (Ambien) 5 mg PO HS PRN PRN Reason: Insomnia Stop: 11/21/17 16:54 Last Admin: 10/05/17 21:02 Dose: 5 mg General: demented HEENT: NC/AT, PERRLA, EOMI, anicteric sclerae, throat clear Neck: Supple, No JVD, No thyromegaly, +2 carotid pulse wo bruit Lungs: CTAB Cardiovascular: RRR, Normal S1, Normal S2, without murmur Abdomen: soft, non-tender, non-distended Extremities: clear Neurological: no change - Procedures Procedures: Procedures Procedure Code Date BRONCHOSCOPY/LUNG BX EACH 21225 05/01/01 C.A.T. SCAN OF HEAD 87.03 09/16/95 CLOSED ENDOSCOPIC BIOPSY OF LUNG 33.27 05/01/01 DX BRONCHOSCOPE/BRUSH 30810 05/01/01 ELECTROCARDIOGRAPH MONIT 89.54 09/16/95 ENDOSCOPIC BRONCHIAL BX 33.24 05/01/01 EXC H-F-NK-SP B9+SADE 2.1-3 35381 08/08/99 GROUP PSYCHOTHERAPY 02992 12/15/01 NASAL LACERATION SUTURE 21.81 09/16/95 OTHER GROUP THERAPY 94.44 12/15/01 OTHER LOCAL DESTRUC SKIN 86.3 08/08/99 OXYGEN ENRICHMENT NEC 93.96 09/16/95 PHYSICAL THERAPY NEC 93.39 09/16/95 RPR F/E/E/N/L/M 2.5 CM/< 33899 09/16/95 Internal Medicine Assmt/Plan - Assessment Assessment: 1.DM. 2.GOUTY ARTHRITIS. 3.DEMENTIA. 4.PSYCHOSIS. - Plan Plan: CONTINUE ON CURRENT MEDICATION AND DIET. Nutritional Asmnt/Malnutr-PDOC - Dietary Evaluation Malnutrition Findings (Please click <Entered> for more info): Nutritional Asmnt/Malnutrition Start: 09/27/17 10: 26 Text: Status: Complete Freq: Document 09/27/17 10:26 ALETHEA (Rec: 09/27/17 10:44 MMABDI CLARKE FN) Nutritional Asmnt/Malnutrition Patient General Information Nutritional Screening Moderate Risk Diagnosis Psychosis Pertinent Medical Hx/Surgical Hx DM, gout, dementia, psychosis Subjective Information Patient was admitted from SNF. Current Diet Order/ Nutrition Support Mechanical soft ground, 60 gm CCHO Patient / S.O Not Indicated Pertinent Medications maalox, colace, glipizide, MOM , Metformin, Theragran Pertinent Labs (09/22) WNL Nutritional Hx/Data Height 1.68 m Height (Calculated Centimeters) 167.6 Current Weight (lbs) 63.503 kg Weight (Calculated Kilograms) 63.5 Weight (Calculated Grams) 29175.9 [place] Body Weight 142 % [place] Body Weight 98 Body Mass Index (BMI) 22.6 Weight Status Approriate GI Symptoms GI Symptoms None Last BM 09/26 x 1 Difficult in: None Food Allergies No Cultural/Ethnic/Orthodoxy Belief None indicated Usual diet at home Unknown Skin Integrity/Comment: Michael 19, Intact Current %PO Good (75-100%) Estimated Nutritional Goals BEE in Kcals: Using Current wt Calories/Kcals/Kg 25-30 kcal/kg using 63.6kg CBW Kcals Calculated ~4504-9948 kcal/day (25-30 kcal/kg) Protein: Using Current wt Protein g/k gm/kg Protein Calculated ~65 gm/day Fluid: ml ~7925-2733 ml/day (1 ml/kcal) Nutritional Problem 1. Problem Problem no nutrition diagnosis at this time. Intervention/Recommendation Comments 1. Continue current diet order as tolerated by patient. Expected Outcomes/Goals Expected Outcomes/Goals Oral intake to meet >75% of nutrient needs, weight stable, nutrition related labs remain WNL
[2017-10-06] MEDS: Trihexyphenidyl HCl 2 mg/5 mL UDC PO SCH (21:42)
--- NOTE | 2017-10-06 23:20 | Progress Notes ---
DATE: 10/06/2017 SUBJECTIVE: Chart reviewed and the patient interviewed. Also, discussed the patient's condition with the staff and reviewed records and labs. The patient is still preoccupied and he is still actively responding to stimuli. Also, is still unpredictable and he is still easily agitated. The patient also have difficulty following directions, although it seems to be slightly easier to redirect him. He is also complaint taking his medications with no side effect of medications. ASSESSMENT: The patient is still psychotic, but showing some improvement. TREATMENT PLAN: The patient is taking Seroquel and Abilify and we will discontinue Abilify. Also, continue Seroquel in a dose of 25 mg twice a day and 300 mg at bedtime and also continue Prozac at a dose of 20 mg every day. Also, working with case investigator in regard to discharge plan and the patient to check if he can go back to [place]. JOB# [id number]
[2017-10-07] MEDS: Multivitamin Tab PO SCH (09:04)
[2017-10-07] MEDS: Trihexyphenidyl HCl 2 mg/5 mL UDC PO SCH (12:14)
--- NOTE | 2017-10-07 17:55 | Discharge Summary ---
DATE OF DISCHARGE: 10/07/2017 DATE OF DISCHARGE: 10/07. AGE: 71. SEX: Male. PHYSICIAN: Dr. Ji. FINAL DIAGNOSIS/PRIMARY DIAGNOSIS: Unspecified psychosis. REASON FOR HOSPITALIZATION: The patient was admitted to hospital from [facility] because of increased agitation, irritability, and increased aggressive behavior. HOSPITAL COURSE: The patient continued to be agitated and in angry and irritable mood. The patient also was having severe mood swings and unpredictable behavior. At times he was aggressive with peers and with staff. The patient was given Seroquel and Abilify as well as Prozac. Abilify was stopped. Gradually, the patient's affect was brighter. The patient was calmer and less agitated and easier to do direct him. Also had no side effects of medications. The patient returned to [place]. Physical exam of the patient showed no major medical problems. Blood workup was also basically within normal limits, no major abnormalities. AFTER DISCHARGE PLANS: The patient discharged from the hospital return to [place] with planned for followup there. EXPECTED OUTCOME AFTER DISCHARGE: Fair if the patient continues to take his medications and followup his discharge plans. JOB# [id number]
== END 2017-10-07 16:20 | DRG 885 ==
LOC: ER 14:18 → GERO2 15:30 → GERO 17:33
PROVIDERS: ADMIT Psychiatry & Neurology Psychiatry; ATTEND Psychiatry & Neurology Psychiatry
DX: F25.0 Schizoaffective disorder, bipolar type (principal); F03.91 Unspecified dementia, unspecified severity, with behavioral disturbance; E11.9 Type 2 diabetes mellitus without complications; M10.9 Gout, unspecified; I10 Essential (primary) hypertension; M19.90 Unspecified osteoarthritis, unspecified site; F29 Unspecified psychosis not due to a substance or known physiological condition; Z82.49 Family history of ischemic heart disease and other diseases of the circulatory system
CPT/HCPCS: 36415-UA; 80053-TC; 80061-TC; 80320-TC; 80329-TC; 82948-90; 83036-90; 84443-TC; 85025-TC; 86592-TC; 90899; 93005; Q0161; Z7610

== ENCOUNTER 2018-05-25 15:47 | Inpatient (IN) | payer MEDICARE, MEDICAID ==
[2018-05-25 16:43] LABS: % BASOPHILS 0.4 % (0.0-2.0); % EOSINOPHILS 1.8 % (0.0-5.0); % LYMPHOCYTES 11.3 % (20.0-50.0); % MONOCYTES 10.9 % (2.0-10.0); % NEUTROPHILS 75.6 % (40.0-80.0); EOSINOPHILE ABSOLUTE 0.1 Th/cmm (0.1-0.4); HEMOGLOBIN 11.9 gm/dL (12-16); LYMPHOCYTE ABSOLUTE 0.8 Th/cmm (1.5-3.0); MEAN CELL VOLUME 85.5 fl (80-99); MEAN CORPUSCULAR HEMOGLOBIN 27.5 pg (27.0-31.0); MEAN CORPUSCULAR HGB CONC 32.2 pg (28.0-36.0); MEAN PLATELET VOLUME 6.9 fl; MONOCYTE ABSOLUTE 0.8 Th/cmm (0.3-1.0); NEUTROPHILE ABSOLUTE 5.2 Th/cmm (1.8-8.0); PLATELET COUNT 254 Th/cmm (150-400); RED BLOOD COUNT 4.33 Mil/cmm (3.80-5.80); RED CELL DISTRIBUTION WIDTH 15.3 % (11.5-20.0); WHITE BLOOD COUNT 6.9 Th/cmm (4.8-10.8)
[2018-05-25 16:58] LABS: ALB/GLOB RATIO 1.4 (1.0-1.8); ALBUMIN 3.7 gm/dL (4.2-5.5); ALKALINE PHOSPHATASE 58 U/L (34-104); ANION GAP 11.2 (7.0-16.0); BILIRUBIN,TOTAL 0.3 mg/dL (0.3-1.0); BUN - UREA NITROGEN 16 mg/dL (7-25); CARBON DIOXIDE 27.7 mEq/L (21.0-31.0); CHLORIDE 105 mEq/L (98-107); CREATININE - SERUM 0.9 mg/dL (0.7-1.3); GLUCOSE 94 mg/dL (70-105); MAGNESIUM 2.1 mg/dL (1.9-2.7); PHOSPHOROUS 3.7 mg/dL (2.5-5.0); POTASSIUM SERUM 3.9 mEq/L (3.5-5.1); SGOT 19 U/L (13-39); SGPT/ALT 17 U/L (7-52); SODIUM SERUM 140 mEq/L (136-145); TOTAL PROTEIN,SERUM 6.4 gm/dL (6.0-8.3)
--- NOTE | 2018-05-25 17:30 | ED Physician Chart ---
ED Chief Complaint/HPI - Patient Information Date Seen:: 05/25/18 Time Seen:: 15:56 Chief Complaint:: increased agitation and cough History of Present Illness:: increased agitation; talking to self; physically aggressive x 3 days and a persistent cough. Allergies:: Allergies Allergy/AdvReac Type Severity Reaction Status Date / Time Penicillins Allergy Intermediate Verified 05/25/18 15:55 risperidone [From Risperdal] Allergy Verified 05/25/18 15:55 Vitals:: Vital Signs - 8 hr 05/25/18 15:56 Temp 99.9 F HR 70 RR 18 BP 126/69 O2 Sat % 97 Historian:: Patient, Medical Records Review:: Nurse's Note Reviewed, Transfer documents Reviewed ED Review of Systems - Review of Systems General/Constitutional: No fever, No chills, No weight loss, No weakness, No diaphoresis, No edema, No loss of appetite, Other (slightly elevated temperature at 99.9, would not call it a fever.) Skin: No skin lesions, No rash, No bruising Head: No headache, No light-headedness Eyes: No loss of vision, No pain, No diplopia ENT: No earache, No nasal drainage, No sore throat, No tinnitus Neck: No neck pain, No swelling, No thyromegaly, No stiffness, No mass noted Cardio Vascular: No chest pain, No palpitations, No PND, No orthopnea, No edema Pulmonary: No SOB, Cough, No sputum, No wheezing GI: No nausea, No vomiting, No diarrhea, No pain, No melena, No hematochezia, No constipation, No hematemesis G/U: No dysuria, No frequency, No hematuria Musculoskeletal: No bone or joint pain, No back pain, No muscle pain Endocrine: No polyuria, No polydipsia Psychiatric: Prior psych history Hematopoietic: No bruising, No lymphadenopathy Allergic/Immuno: No urticaria, No angioedema Neurological: No syncope, No focal symptoms, No weakness, No paresthesia, No headache, No seizure, No dizziness, No confusion, No vertigo ED Past Medical History - Past Medical History Obtainable: No Past Medical History: DM, Dementia, Other (polyneuropathy; gout; arthropathy) Psychiatricy History: Depression, Schizophrenia, Dementia, Other (anxiety; insomnia; schizoaffective disorder) Family Medical History - Family Member Mother History Unknown: Yes ED Physical Exam - Physical Examination General/Constitutional: Awake, Well-developed, well-nourished, Alert, No distress, Non-toxic appearing, Ambulatory Other Gen/Cons comments:: doesn't talk much. Head: Atraumatic Eyes: Lids, conjuctiva normal, PERRL, EOMI Skin: Nl inspection, No rash, No skin lesions, No ecchymosis, Well hydrated, No lymphadenopathy ENMT: External ears, nose nl, Nasal exam nl, Lips, teeth, gums nl Neck: Nontender, No nuchal rigidity, No stridor Respiratory: Nl effort/Exclusion Other Respiratory comments:: slight faint dry crackles in the L lung base. Cardio Vascular: RRR, No murmur, gallop, rubs, NL S1 S2 GI: No tenderness/rebounding/guarding, No organomegaly, No hernia, Normal BS's, Nondistended, No mass/bruits, No McBurney tenderness : No CVA tenderness Extremities: No tenderness or effusion, Full ROM, normal strength in all extremities, No edema, Normal digits & nails Neuro/Psych: Alert/oriented, Normal sensory exam, Normal motor strength, Judgement/insight normal, Mood normal, Normal gait, No focal deficits Misc: Normal back, No paraspinal tenderness ED Labs/Radiology/EKG Results - Lab Results Results: Laboratory Tests 05/25/18 05/25/18 16:30 16:30 WBC 6.9 RBC 4.33 Hgb 11.9 L Hct 37.0 L MCV 85.5 MCH 27.5 MCHC Differential 32.2 RDW 15.3 Plt Count 254 MPV 6.9 Neutrophils % 75.6 Lymphocytes % 11.3 L Monocytes % 10.9 H Eosinophils % 1.8 Basophils % 0.4 Sodium 140 Potassium 3.9 Chloride 105 Carbon Dioxide 27.7 Anion Gap 11.2 BUN 16 Creatinine 0.9 Est GFR ( Amer) TNP Est GFR (Non-Af Amer) TNP BUN/Creatinine Ratio 17.8 Glucose 94 Calcium 9.0 Phosphorus 3.7 Magnesium 2.1 Total Bilirubin 0.3 AST 19 ALT 17 Alkaline Phosphatase 58 Total Protein 6.4 Albumin 3.7 L Globulin 2.7 Albumin/Globulin Ratio 1.4 ED Assessment - Assessment General Assessment: EKG from 18:34:36 p.m. reveals normal sinus rhythm with flipped t wave in III, AVR, V1 to V3, NSSTT wave changes. CXR: poor inspiration. Possible retrocardiac infiltrate. troponin normal at 0.[address] VERDUGO REGARDING THIS PATIENT: PATIENT IS REFUSING AN IV. LEVAQUIN CONTRAINDICATED FROM THE FACT THAT THE PATIENT HAS A PROLONGED MS INTERVAL. DR. VERDUGO AGREES THAT THE PATIENT IS MEDICALLY CLEARED FOR THE GEROPSYCH UNIT, BUT THAT HE WANTS DOXYCYCLINE 100 MG PO BID FOR 7 DAYS ALSO, PLEASE OBTAIN URINE FOR A UA TO VERIFY THAT HE HAS NO URINARY TRACT INFECTION. PATIENT REFUSED TO PROVIDE A URINE TO US IN THE ER AND WANTED TO WALK OUT OF THE ER. ED Septic Shock - . Is Septic Shock (SBP<90, OR Lactate>4 mmol\L) present?: No - <6hrs of presentation: Vital Signs: Vital Signs - 8 hr 05/25/18 15:56 Temp 99.9 F HR 70 RR 18 BP 126/69 O2 Sat % 97 ED Reassessment (Disposition) - Reassessment Reassessment Condition:: Unchanged - Diagnosis Diagnosis:: Increased agitation. Possible retrocardiac infiltrate. Will treat with Doxycycline 100 mg po bid for [address] Verdugo's desire[address] VERDUGO AGREES THAT THE PATIENT IS MEDICALLY CLEARED FOR THE GEROPSYCH UNIT, BUT THAT HE WANTS DOXYCYCLINE 100 MG PO BID FOR 7 DAYS ALSO, PLEASE OBTAIN URINE FOR A UA TO VERIFY THAT HE HAS NO URINARY TRACT INFECTION. PATIENT REFUSED TO PROVIDE A URINE TO US IN THE ER AND WANTED TO WALK OUT OF THE ER. - Patient Disposition Discharge/Transfer:: Acute Care w/in this hosp Admitted to:: [facility] Condition at Disposition:: Stable, Unchanged
[2018-05-25] MEDS ORDERED: Levofloxacin 500mg/100mL 500 MG/100 ML BAG IV ONE (18:26)
[2018-05-25 20:18] LABS: URINE SOURCE CLEAN C
[2018-05-25 20:20] LABS: URINE BILIRUBIN NEGATIVE (NEGATIVE); URINE BLOOD NEGATIVE (NEGATIVE); URINE GLUCOSE (UA) NEGATIVE (NEGATIVE); URINE KETONE NEGATIVE (NEGATIVE); URINE LEUKOCYTE ESTERASE NEGATIVE (NEGATIVE); URINE NITRATE NEGATIVE (NEGATIVE); URINE PROTEIN NEGATIVE (NEGATIVE); URINE UROBILINOGEN 0.2 E.U./dL (0.2 - 1.0)
[2018-05-25 20:30] LABS: URINE CLARITY CLEAR (CLEAR); URINE COLOR YELLOW; URINE MICROSCOPIC INDICATED? YES
[2018-05-25 20:34] LABS: URINE AMORPHOUS SEDIMENT FEW PHOSPHATES (NONE SEEN); URINE BACTERIA FEW /hpf (NONE SEEN); URINE EPITHELIAL CELLS FEW /lpf (FEW); URINE RBC NONE SEEN /hpf (0-5); URINE WBC 0-2 /hpf (0-5)
[2018-05-25 20:54] VITALS: BP 129/69
[2018-05-25] MEDS ORDERED: Maalox 30 mL Cup PO PRN (21:06)
[2018-05-25] MEDS ORDERED: Magnesium Hydroxide (MOM) 30 mL UDC PO PRN (21:06)
[2018-05-25 21:17] LABS: CHOLESTEROL 144 mg/dL (<200); HDL -HIGH DENSITY LIPOPROTEIN 51 mg/dL (23-92); TRIGLYCERIDES 62 mg/dL (<150)
--- NOTE | 2018-05-26 08:09 | Diagnostic Imaging Report ---
CHEST X-RAY: 2 views INDICATION: Cough and elevated temperature COMPARISON: None FINDINGS: Suboptimal lung volumes are seen with mild increased right basal lung markings. There is no focal consolidation or pleural effusions The heart is borderline prominent and is accentuated by patient suboptimal lung volumes. There is minimal atherosclerosis of the aortic arch. Old right midclavicular fracture is noted. IMPRESSION: Increased right basal lung markings which is probably due to atelectasis. Faint infiltrate is less likely. Suboptimal lung volumes. Minimal atherosclerosis of the aortic arch.
[2018-05-26] MEDS: Multivitamin Tab PO SCH (08:45)
--- NOTE | 2018-05-26 12:03 | Psychiatric Evaluation ---
DATE OF SERVICE: 05/25/2018 IDENTIFYING INFORMATION: The patient is a 71-year-old male. CHIEF COMPLAINT: No answer. HISTORY OF PRESENT ILLNESS: The patient was admitted because of agitation. He came from a nursing facility with a history of schizoaffective disorder and dementia. The patient was agitated, talking to himself, physically aggressive for 3 days. PAST PSYCHIATRIC HISTORY: History of schizoaffective disorder. The patient is unable to give information, internally preoccupied, and talking to himself. MEDICAL HISTORY: Possible retrocardiac infiltrate, was given antibiotics. The patient is on Prozac 30 mg daily and gabapentin 100 mg 3 times a day ____ Haldol Decanoate and Seroquel 25 mg daily already given by Dr. Ji, ordered as well as Seroquel 300 mg at bedtime, and Artane 2 mg 3 times a day. ALLERGIES: THE PATIENT IS ALLERGIC TO PENICILLIN AND RISPERDAL. FAMILY AND SOCIAL HISTORY: Unobtainable. MENTAL STATUS EXAMINATION: The patient is alert; however, he was unable to tell me his age. He believes he was 78. He reports he is single, never , and has 7 children. Unable to tell me what he did for living or schooling, internally preoccupied, paranoid, easily agitated, unable tell me the date, date of , his age. He believes he was 78 when he is not. He seems to be responding to internal stimuli. ____ short term memory is poor, cannot tell me the reason for him coming here, what he had for breakfast. He seem to be responding to internal stimuli. His insight about his illness is poor. Does not realize he has a problem and judgment is poor with his behavior. IMPRESSION: Schizoaffective disorder. MEDICAL DIAGNOSES: As per medical doctor. PLAN: The patient will be started back on his medication. We will do group therapy, milieu therapy, and individual therapy. ESTIMATED LENGTH OF STAY: 3-7 days. DISCHARGE CRITERIA: Decrease in agitation, psychosis. Discharge outpatient. JOB# [id number]
--- NOTE | 2018-05-27 02:24 | History & Physical ---
ADMIT DATE: HISTORY OF PRESENT ILLNESS: The patient is a 71-year-old male with long history of diabetes mellitus, chronic constipation, psychosis, diabetic neuropathy of lower extremities, admitted to [facility] katie/psych under Dr. Ji's service for evaluation and treatment. The patient denies any chest pain, shortness of breath, nausea, vomiting, fever, or chills. PAST MEDICAL HISTORY: Significant for diabetes mellitus, constipation, peripheral vascular disease, peripheral diabetic neuropathy of lower extremities, psychosis, dementia. PAST SURGICAL HISTORY: No recent surgery. ALLERGIES: PENICILLIN AND RISPERIDONE. SOCIAL HISTORY: No smoking, no alcohol, no drug. FAMILY HISTORY: Noncontributory. MEDICATIONS: Follow admission reconciliation. REVIEW OF SYSTEMS: IMMUNE SYSTEM: No history of chronic immune disorder. CARDIOVASCULAR SYSTEM: No coronary artery disease. ENDOCRINE SYSTEM: He has history of diabetes mellitus. GASTROINTESTINAL SYSTEM: No upper or lower GI bleed. NEUROLOGICAL SYSTEM: Has peripheral neuropathy of lower extremities. SKELETOMUSCULAR SYSTEM: No muscular dystrophy. HEMATOLOGIC SYSTEM: No bleeding tendency. RESPIRATORY SYSTEM: No asthma. GENITOURINARY SYSTEM: No dysuria or hematuria. PHYSICAL EXAMINATION: GENERAL: He is awake, alert, mildly confused. VITAL SIGNS: Temperature is 98.1, heart rate 72, blood pressure 111/68. HEENT: Normocephalic. Pupils reactive to light and accommodation. Sclerae clear. NECK: Supple. Negative for lymphadenopathy, JVD, or bruit. CHEST: Entry of air bilaterally normal. No rhonchi or wheezing. HEART: S1, S2 normal. No gallop rhythm. ABDOMEN: Soft. Bowel sounds positive. EXTREMITIES: No edema. BACK: Normal vertebrae. SKIN: Intact. GENITAL AND RECTAL: Examination done by primary physician, no complaint. NEUROLOGIC: He is awake, alert, mildly confused. Cranial nerve 1, the patient ____. Cranial nerve 2, the patient ____. Cranial nerve 3, the patient ____. Cranial nerve 4, the patient ____. Cranial nerve 5, the patient ____. Cranial nerve 6, the patient able to move ____. Cranial nerve 7, the patient able to move eyebrow upward ____. Cranial nerve 8, the patient able to hear finger rubs ____. Cranial nerve 9, the patient has normal gag reflex. Cranial nerve 10, the patient able to move soft palate upward ____. Cranial nerve 11, the patient able to shrug shoulder ____. Cranial nerve 12, the patient able to stick tongue straight. Motor system examination within normal limits. Deep tendon reflexes within normal limits. Coordination of muscle within normal limits. Sensory system: The patient ____ of the upper extremities. Gait is stable. LABORATORY DATA: White blood count 6.9, hemoglobin 11.9, hematocrit 37, platelets 254. Sodium 140, potassium 3.9, BUN 16, creatinine 0.9. ASSESSMENT: 1. Diabetes mellitus. 2. Anemia. 3. Constipation. 4. Peripheral diabetic neuropathy of lower extremities. 5. Psychosis. PLAN: The patient admitted to the hospital under Dr. Ji's service. Medical problem addressed during the hospitalization is psychosis. Medical problems addressed at discharge is diabetes mellitus. The patient is medically stable for activity. Thank you, Dr. Ji, for asking me to see your patient. The patient is a full code. JOB# [id number]
[2018-05-27] MEDS: Multivitamin Tab PO SCH (08:46)
--- NOTE | 2018-05-27 13:52 | Progress Notes ---
DATE: 05/27/2018 Case was discussed with staff of the patient, reviewed records. The patient continues to be confused, unpredictable, impulsive, needing redirection. He is compliant with the medication, no side effects. Continues to be unable to express himself. He is demented and confused. No side effects of medication, no sedation, no nausea. We will continue the patient in group therapy, milieu therapy, adjust the medications as needed. [facility]# [id number]
--- NOTE | 2018-05-27 20:59 | Internal Medicine Prog Note ---
Internal Medicine Subjective - Subjective Service Date: 05/27/18 Patient seen and examined:: with staff Patient is:: awake, verbal, ambulating, talking, confused Per staff patient has:: no adverse event Internal Medicine Objective - Results Result Diagrams: 05/25/18 16:30 05/25/18 16:30 Recent Labs: Laboratory Last Values WBC 6.9 Th/cmm (4.8-10.8) 05/25/18 16:30 RBC 4.33 Mil/cmm (3.80-5.80) 05/25/18 16:30 Hgb 11.9 gm/dL (12-16) L 05/25/18 16:30 Hct 37.0 % (41.0-60) L 05/25/18 16:30 MCV 85.5 fl (80-99) 05/25/18 16:30 MCH 27.5 pg (27.0-31.0) 05/25/18 16:30 MCHC Differential 32.2 pg (28.0-36.0) 05/25/18 16:30 RDW 15.3 % (11.5-20.0) 05/25/18 16:30 Plt Count 254 Th/cmm (150-400) 05/25/18 16:30 MPV 6.9 fl 05/25/18 16:30 Neutrophils % 75.6 % (40.0-80.0) 05/25/18 16:30 Lymphocytes % 11.3 % (20.0-50.0) L 05/25/18 16:30 Monocytes % 10.9 % (2.0-10.0) H 05/25/18 16:30 Eosinophils % 1.8 % (0.0-5.0) 05/25/18 16:30 Basophils % 0.4 % (0.0-2.0) 05/25/18 16:30 Sodium 140 mEq/L (136-145) 05/25/18 16:30 Potassium 3.9 mEq/L (3.5-5.1) 05/25/18 16:30 Chloride 105 mEq/L (98-107) 05/25/18 16:30 Carbon Dioxide 27.7 mEq/L (21.0-31.0) 05/25/18 16:30 Anion Gap 11.2 (7.0-16.0) 05/25/18 16:30 BUN 16 mg/dL (7-25) 05/25/18 16:30 Creatinine 0.9 mg/dL (0.7-1.3) 05/25/18 16:30 Est GFR ( Amer) TNP 05/25/18 16:30 Est GFR (Non-Af Amer) TNP 05/25/18 16:30 BUN/Creatinine Ratio 17.8 05/25/18 16:30 Glucose 94 mg/dL (70-105) 05/25/18 16:30 Whole Bld Lactic Acid 0.83 mmol/L (0.60-1.99) 05/25/18 16:30 Calcium 9.0 mg/dL (8.6-10.3) 05/25/18 16:30 Phosphorus 3.7 mg/dL (2.5-5.0) 05/25/18 16:30 Magnesium 2.1 mg/dL (1.9-2.7) 05/25/18 16:30 Total Bilirubin 0.3 mg/dL (0.3-1.0) 05/25/18 16:30 AST 19 U/L (13-39) 05/25/18 16:30 ALT 17 U/L (7-52) 05/25/18 16:30 Alkaline Phosphatase 58 U/L (34-104) 05/25/18 16:30 Troponin I 0.02 ng/mL (0.01-0.05) 05/25/18 16:30 Total Protein 6.4 gm/dL (6.0-8.3) 05/25/18 16:30 Albumin 3.7 gm/dL (4.2-5.5) L 05/25/18 16:30 Globulin 2.7 gm/dL 05/25/18 16:30 Albumin/Globulin Ratio 1.4 (1.0-1.8) 05/25/18 16:30 Triglycerides 62 mg/dL (<150) 05/25/18 16:30 Cholesterol 144 mg/dL (<200) 05/25/18 16:30 LDL Cholesterol Direct 91 mg/dL (75-193) 05/25/18 16:30 HDL Cholesterol 51 mg/dL (23-92) 05/25/18 16:30 TSH 0.69 uIU/ml (0.34-5.60) 05/25/18 16:30 Urine Source CLEAN C 05/25/18 19:30 Urine Color YELLOW 05/25/18 19:30 Urine Clarity CLEAR (CLEAR) 05/25/18 19:30 Urine pH 7.0 (4.6 - 8.0) 05/25/18 19:30 Ur Specific [place] 1.010 (1.005-1.030) 05/25/18 19:30 Urine Protein NEGATIVE mg/dL (NEGATIVE) 05/25/18 19:30 Urine Glucose (UA) NEGATIVE mg/dL (NEGATIVE) 05/25/18 19:30 Urine Ketones NEGATIVE mg/dL (NEGATIVE) 05/25/18 19:30 Urine Blood NEGATIVE (NEGATIVE) 05/25/18 19:30 Urine Nitrate NEGATIVE (NEGATIVE) 05/25/18 19:30 Urine Bilirubin NEGATIVE (NEGATIVE) 05/25/18 19:30 Urine Urobilinogen 0.2 E.U./dL (0.2 - 1.0) 05/25/18 19:30 Ur Leukocyte Esterase NEGATIVE (NEGATIVE) 05/25/18 19:30 Urine RBC NONE SEEN /hpf (0-5) 05/25/18 19:30 Urine WBC 0-2 /hpf (0-5) 05/25/18 19:30 Ur Epithelial Cells FEW /lpf (FEW) 05/25/18 19:30 Amorphous Sediment FEW PHOSPHATES (NONE SEEN) 05/25/18 19:30 Urine Bacteria FEW /hpf (NONE SEEN) 05/25/18 19:30 - Physical Exam Vitals and I&O: Vital Signs Temp 97.2 F 05/27/18 20:19 Pulse 99 05/27/18 20:19 Resp 19 05/27/18 20:19 BP 133/60 05/27/18 20:19 Pulse Ox 94 05/27/18 20:19 Intake & Output 05/27/18 05/27/18 05/28/18 06:59 18:59 06:59 Intake Total 480 1200 Balance 480 1200 Intake: Oral 480 1200 Other: # Voids 2 # Bowel Movements 1 Active Medications: Current Medications Al Hydrox/Mg Hydrox/Simethicone (Maalox) 30 ml PO Q6H PRN PRN Reason: GI DISTRESS Stop: 07/24/18 21:05 Allopurinol (Zyloprim) 300 mg PO DAILY [facility] Stop: 07/25/18 08:59 Last Admin: 05/27/18 08:45 Dose: 300 mg Aripiprazole (Abilify) 30 mg PO QAM [facility] Stop: 07/25/18 08:59 Last Admin: 05/27/18 08:46 Dose: 30 mg Docusate Sodium (Colace) 250 mg PO DAILY [facility] Stop: 07/25/18 08:59 Last Admin: 05/27/18 08:46 Dose: 250 mg Doxycycline Hyclate (Vibramycin) 100 mg PO Q12HR [facility] Stop: 06/01/18 21:00 Last Admin: 05/27/18 20:40 Dose: 100 mg Fluoxetine HCl (Prozac) 30 mg PO DAILY [facility]; Protocol Stop: 07/25/18 08:59 Last Admin: 05/27/18 08:46 Dose: 30 mg Gabapentin (Neurontin) 100 mg PO TID [facility] Stop: 07/25/18 08:59 Last Admin: 05/27/18 20:40 Dose: 100 mg Glipizide (Glucotrol) 10 mg PO BID [facility] Stop: 07/25/18 08:59 Last Admin: 05/27/18 16:54 Dose: 10 mg Haloperidol Decanoate (Haldol Dec) 50 mg IM [id number] [facility] Stop: 08/02/18 09:59 Lorazepam (Ativan) 0.5 mg PO Q4HR PRN; Protocol PRN Reason: Anxiety Stop: 06/24/18 21:03 Magnesium Hydroxide (Milk Of Magnesia) 30 ml PO HS PRN PRN Reason: IF STOOL SOFTENERS INEFFECTIVE Stop: 07/24/18 21:05 Metformin HCl (Glucophage) 1,000 mg PO BIDBRS [facility] Stop: 07/25/18 07:59 Last Admin: 05/27/18 17:12 Dose: 1,000 mg Multivitamins/Vitamin C (Theragran) 1 tab PO DAILY [facility] Stop: 07/25/18 08:59 Last Admin: 05/27/18 08:46 Dose: 1 tab Pioglitazone HCl (Actos) 45 mg PO QDAC [facility] Stop: 07/25/18 07:29 Last Admin: 05/27/18 06:33 Dose: 45 mg Quetiapine Fumarate (Seroquel) 25 mg PO DAILY [facility]; Protocol Stop: 03/09/19 08:59 Last Admin: 05/27/18 08:46 Dose: 25 mg Quetiapine Fumarate (Seroquel) 300 mg PO HS [facility]; Protocol Stop: 07/24/18 22:59 Last Admin: 05/27/18 20:40 Dose: 300 mg Trihexyphenidyl HCl (Artane) 2 mg PO TID [facility] Stop: 07/25/18 08:59 Last Admin: 05/27/18 20:39 Dose: 2 mg Zolpidem Tartrate (Ambien) 5 mg PO HS PRN PRN Reason: Insomnia Stop: 07/24/18 21:03 Last Admin: 05/26/18 20:22 Dose: 5 mg General: demented HEENT: NC/AT, PERRLA, EOMI, anicteric sclerae, throat clear Neck: Supple, No JVD, No thyromegaly, +2 carotid pulse wo bruit, No LAD Lungs: CTAB Cardiovascular: RRR, Normal S1, Normal S2, without murmur Abdomen: soft, non-tender, non-distended Extremities: clear Neurological: no change - Procedures Procedures: Procedures Procedure Code Date BRONCHOSCOPY/LUNG BX EACH 62519 05/01/01 C.A.T. SCAN OF HEAD 87.03 09/16/95 CLOSED ENDOSCOPIC BIOPSY OF LUNG 33.27 05/01/01 DX BRONCHOSCOPE/BRUSH 19577 05/01/01 ELECTROCARDIOGRAPH MONIT 89.54 09/16/95 ENDOSCOPIC BRONCHIAL BX 33.24 05/01/01 EXC H-F-NK-SP B9+SADE 2.1-3 57764 08/08/99 GROUP PSYCHOTHERAPY 14018 12/15/01 NASAL LACERATION SUTURE 21.81 09/16/95 OTHER GROUP THERAPY 94.44 12/15/01 OTHER LOCAL DESTRUC SKIN 86.3 08/08/99 OXYGEN ENRICHMENT NEC 93.96 09/16/95 PHYSICAL THERAPY NEC 93.39 09/16/95 RPR F/E/E/N/L/M 2.5 CM/< 22890 09/16/95 Internal Medicine Assmt/Plan - Assessment Assessment: 1.DM. 2.PVD OF LOWER EXTR. 3.CONSTIPATION. 4.DEMENTIA. - Plan Plan: CONTINUE ON CURRENT MEDICATION AND DIET.
[2018-05-28] MEDS: Multivitamin Tab PO SCH (09:22)
--- NOTE | 2018-05-28 21:10 | Internal Medicine Prog Note ---
Internal Medicine Subjective - Subjective Service Date: 05/28/18 Patient seen and examined:: with staff Patient is:: awake, verbal, ambulating, talking, confused Per staff patient has:: no adverse event Internal Medicine Objective - Results Result Diagrams: 05/25/18 16:30 05/25/18 16:30 Recent Labs: Laboratory Last Values WBC 6.9 Th/cmm (4.8-10.8) 05/25/18 16:30 RBC 4.33 Mil/cmm (3.80-5.80) 05/25/18 16:30 Hgb 11.9 gm/dL (12-16) L 05/25/18 16:30 Hct 37.0 % (41.0-60) L 05/25/18 16:30 MCV 85.5 fl (80-99) 05/25/18 16:30 MCH 27.5 pg (27.0-31.0) 05/25/18 16:30 MCHC Differential 32.2 pg (28.0-36.0) 05/25/18 16:30 RDW 15.3 % (11.5-20.0) 05/25/18 16:30 Plt Count 254 Th/cmm (150-400) 05/25/18 16:30 MPV 6.9 fl 05/25/18 16:30 Neutrophils % 75.6 % (40.0-80.0) 05/25/18 16:30 Lymphocytes % 11.3 % (20.0-50.0) L 05/25/18 16:30 Monocytes % 10.9 % (2.0-10.0) H 05/25/18 16:30 Eosinophils % 1.8 % (0.0-5.0) 05/25/18 16:30 Basophils % 0.4 % (0.0-2.0) 05/25/18 16:30 Sodium 140 mEq/L (136-145) 05/25/18 16:30 Potassium 3.9 mEq/L (3.5-5.1) 05/25/18 16:30 Chloride 105 mEq/L (98-107) 05/25/18 16:30 Carbon Dioxide 27.7 mEq/L (21.0-31.0) 05/25/18 16:30 Anion Gap 11.2 (7.0-16.0) 05/25/18 16:30 BUN 16 mg/dL (7-25) 05/25/18 16:30 Creatinine 0.9 mg/dL (0.7-1.3) 05/25/18 16:30 Est GFR ( Amer) TNP 05/25/18 16:30 Est GFR (Non-Af Amer) TNP 05/25/18 16:30 BUN/Creatinine Ratio 17.8 05/25/18 16:30 Glucose 94 mg/dL (70-105) 05/25/18 16:30 POC Glucose 94 MG/DL (70 - 105) 05/28/18 06:48 Whole Bld Lactic Acid 0.83 mmol/L (0.60-1.99) 05/25/18 16:30 Calcium 9.0 mg/dL (8.6-10.3) 05/25/18 16:30 Phosphorus 3.7 mg/dL (2.5-5.0) 05/25/18 16:30 Magnesium 2.1 mg/dL (1.9-2.7) 05/25/18 16:30 Total Bilirubin 0.3 mg/dL (0.3-1.0) 05/25/18 16:30 AST 19 U/L (13-39) 05/25/18 16:30 ALT 17 U/L (7-52) 05/25/18 16:30 Alkaline Phosphatase 58 U/L (34-104) 05/25/18 16:30 Troponin I 0.02 ng/mL (0.01-0.05) 05/25/18 16:30 Total Protein 6.4 gm/dL (6.0-8.3) 05/25/18 16:30 Albumin 3.7 gm/dL (4.2-5.5) L 05/25/18 16:30 Globulin 2.7 gm/dL 05/25/18 16:30 Albumin/Globulin Ratio 1.4 (1.0-1.8) 05/25/18 16:30 Triglycerides 62 mg/dL (<150) 05/25/18 16:30 Cholesterol 144 mg/dL (<200) 05/25/18 16:30 LDL Cholesterol Direct 91 mg/dL (75-193) 05/25/18 16:30 HDL Cholesterol 51 mg/dL (23-92) 05/25/18 16:30 TSH 0.69 uIU/ml (0.34-5.60) 05/25/18 16:30 Urine Source CLEAN C 05/25/18 19:30 Urine Color YELLOW 05/25/18 19:30 Urine Clarity CLEAR (CLEAR) 05/25/18 19:30 Urine pH 7.0 (4.6 - 8.0) 05/25/18 19:30 Ur Specific [place] 1.010 (1.005-1.030) 05/25/18 19:30 Urine Protein NEGATIVE mg/dL (NEGATIVE) 05/25/18 19:30 Urine Glucose (UA) NEGATIVE mg/dL (NEGATIVE) 05/25/18 19:30 Urine Ketones NEGATIVE mg/dL (NEGATIVE) 05/25/18 19:30 Urine Blood NEGATIVE (NEGATIVE) 05/25/18 19:30 Urine Nitrate NEGATIVE (NEGATIVE) 05/25/18 19:30 Urine Bilirubin NEGATIVE (NEGATIVE) 05/25/18 19:30 Urine Urobilinogen 0.2 E.U./dL (0.2 - 1.0) 05/25/18 19:30 Ur Leukocyte Esterase NEGATIVE (NEGATIVE) 05/25/18 19:30 Urine RBC NONE SEEN /hpf (0-5) 05/25/18 19:30 Urine WBC 0-2 /hpf (0-5) 05/25/18 19:30 Ur Epithelial Cells FEW /lpf (FEW) 05/25/18 19:30 Amorphous Sediment FEW PHOSPHATES (NONE SEEN) 05/25/18 19:30 Urine Bacteria FEW /hpf (NONE SEEN) 05/25/18 19:30 - Physical Exam Vitals and I&O: Vital Signs Temp 97.1 F 05/28/18 20:05 Pulse 80 05/28/18 20:05 Resp 19 05/28/18 20:05 BP 110/68 05/28/18 20:05 Pulse Ox 97 05/28/18 20:05 Intake & Output 05/28/18 05/28/18 05/29/18 06:59 18:59 06:59 Intake Total 120 1200 Balance 120 1200 Intake: Oral 120 1200 Other: # Voids 3 # Bowel Movements 0 1 Active Medications: Current Medications Al Hydrox/Mg Hydrox/Simethicone (Maalox) 30 ml PO Q6H PRN PRN Reason: GI DISTRESS Stop: 03/08/19 21:05 Allopurinol (Zyloprim) 300 mg PO DAILY [facility] Stop: 07/25/18 08:59 Last Admin: 05/28/18 09:23 Dose: 300 mg Aripiprazole (Abilify) 30 mg PO QAM [facility] Stop: 07/25/18 08:59 Last Admin: 05/28/18 09:22 Dose: 30 mg Docusate Sodium (Colace) 250 mg PO DAILY [facility] Stop: 07/25/18 08:59 Last Admin: 05/28/18 09:22 Dose: 250 mg Doxycycline Hyclate (Vibramycin) 100 mg PO Q12HR [facility] Stop: 06/01/18 21:00 Last Admin: 05/28/18 20:40 Dose: 100 mg Fluoxetine HCl (Prozac) 30 mg PO DAILY [facility] Stop: 07/28/18 08:59 Gabapentin (Neurontin) 100 mg PO TID [facility] Stop: 07/25/18 08:59 Last Admin: 05/28/18 20:40 Dose: 100 mg Glipizide (Glucotrol) 10 mg PO BID [facility] Stop: 07/25/18 08:59 Last Admin: 05/28/18 17:04 Dose: Not Given Haloperidol Decanoate (Haldol Dec) 50 mg IM [id number] [facility] Stop: 08/02/18 09:59 Lorazepam (Ativan) 0.5 mg PO Q4HR PRN; Protocol PRN Reason: Anxiety Stop: 06/24/18 21:03 Last Admin: 05/28/18 16:04 Dose: 0.5 mg Magnesium Hydroxide (Milk Of Magnesia) 30 ml PO HS PRN PRN Reason: IF STOOL SOFTENERS INEFFECTIVE Stop: 07/24/18 21:05 Metformin HCl (Glucophage) 1,000 mg PO BIDBRS [facility] Stop: 07/25/18 07:59 Last Admin: 05/28/18 19:04 Dose: Not Given Multivitamins/Vitamin C (Theragran) 1 tab PO DAILY [facility] Stop: 07/25/18 08:59 Last Admin: 05/28/18 09:22 Dose: 1 tab Pioglitazone HCl (Actos) 45 mg PO QDAC [facility] Stop: 07/25/18 07:29 Last Admin: 05/28/18 06:53 Dose: 45 mg Quetiapine Fumarate (Seroquel) 25 mg PO DAILY [facility]; Protocol Stop: 07/25/18 08:59 Last Admin: 05/28/18 09:22 Dose: 25 mg Quetiapine Fumarate (Seroquel) 300 mg PO HS [facility]; Protocol Stop: 07/24/18 22:59 Last Admin: 05/28/18 20:40 Dose: 300 mg Trihexyphenidyl HCl (Artane) 2 mg PO TID [facility] Stop: 07/25/18 08:59 Last Admin: 05/28/18 20:40 Dose: 2 mg Zolpidem Tartrate (Ambien) 5 mg PO HS PRN PRN Reason: Insomnia Stop: 07/24/18 21:03 Last Admin: 05/28/18 20:40 Dose: 5 mg General: demented HEENT: NC/AT, PERRLA, EOMI, anicteric sclerae, throat clear Neck: Supple, No JVD, No thyromegaly, +2 carotid pulse wo bruit, No LAD Lungs: CTAB Cardiovascular: RRR, Normal S1, Normal S2, without murmur Abdomen: soft, non-tender, non-distended Extremities: clear Neurological: no change - Procedures Procedures: Procedures Procedure Code Date BRONCHOSCOPY/LUNG BX EACH 90167 05/01/01 C.A.T. SCAN OF HEAD 87.03 09/16/95 CLOSED ENDOSCOPIC BIOPSY OF LUNG 33.27 05/01/01 DX BRONCHOSCOPE/BRUSH 01136 05/01/01 ELECTROCARDIOGRAPH MONIT 89.54 09/16/95 ENDOSCOPIC BRONCHIAL BX 33.24 05/01/01 EXC H-F-NK-SP B9+SADE 2.1-3 04127 08/08/99 GROUP PSYCHOTHERAPY 64040 12/15/01 NASAL LACERATION SUTURE 21.81 09/16/95 OTHER GROUP THERAPY 94.44 12/15/01 OTHER LOCAL DESTRUC SKIN 86.3 08/08/99 OXYGEN ENRICHMENT NEC 93.96 09/16/95 PHYSICAL THERAPY NEC 93.39 09/16/95 RPR F/E/E/N/L/M 2.5 CM/< 16778 09/16/95 Internal Medicine Assmt/Plan - Assessment Assessment: 1.DM. 2.PVD OF LOWER EXTR. 3.CONSTIPATION. 4.DEMENTIA. - Plan Plan: CONTINUE ON CURRENT MEDICATION AND DIET.
--- NOTE | 2018-05-28 23:37 | Progress Notes ---
DATE: 05/28/2018 Case was discussed with staff of the patient. The patient continues to be confused, easily agitated. Continues to have poor insight. Continues to be unable to make safe plan for self-care. Continues to be paranoid at times. He is sleeping better, eating better, compliant with the medication with no side effects, no sedation, no nausea, and no extrapyramidal symptoms. We will continue to work with the patient in group therapy, milieu therapy, and adjust medications as needed. JOB# [id number]
[2018-05-29] MEDS: Multivitamin Tab PO SCH (08:24)
--- NOTE | 2018-05-29 16:33 | Progress Notes ---
DATE: 05/29/2018 Case was discussed with staff of the patient, reviewed records. The patient continues to be paranoid, talking to himself, demented, confused, unable to make safe plan for self-care or participate in a meaningful conversation. He continues to have poor insight. Sleeping better, eating better. No side effects of the medication, no sedation, no nausea, no extrapyramidal symptoms. I will be increasing his Seroquel to 50 mg a day and also he is on Haldol Decanoate. We also tried to take him off the Abilify keeping him off, so I will go down to 10 mg daily and then discontinue it. So far, no side effects with the medication, no sedation or nausea, no extrapyramidal symptoms. We will continue the patient in group therapy, milieu therapy, and adjust medication as needed. JOB# [id number]
--- NOTE | 2018-05-29 20:50 | Internal Medicine Prog Note ---
Internal Medicine Subjective - Subjective Service Date: 05/29/18 Patient seen and examined:: without staff Patient is:: awake, verbal, ambulating, talking, confused Per staff patient has:: no adverse event Internal Medicine Objective - Results Result Diagrams: 05/25/18 16:30 05/25/18 16:30 Recent Labs: Laboratory Last Values WBC 6.9 Th/cmm (4.8-10.8) 05/25/18 16:30 RBC 4.33 Mil/cmm (3.80-5.80) 05/25/18 16:30 Hgb 11.9 gm/dL (12-16) L 05/25/18 16:30 Hct 37.0 % (41.0-60) L 05/25/18 16:30 MCV 85.5 fl (80-99) 05/25/18 16:30 MCH 27.5 pg (27.0-31.0) 05/25/18 16:30 MCHC Differential 32.2 pg (28.0-36.0) 05/25/18 16:30 RDW 15.3 % (11.5-20.0) 05/25/18 16:30 Plt Count 254 Th/cmm (150-400) 05/25/18 16:30 MPV 6.9 fl 05/25/18 16:30 Neutrophils % 75.6 % (40.0-80.0) 05/25/18 16:30 Lymphocytes % 11.3 % (20.0-50.0) L 05/25/18 16:30 Monocytes % 10.9 % (2.0-10.0) H 05/25/18 16:30 Eosinophils % 1.8 % (0.0-5.0) 05/25/18 16:30 Basophils % 0.4 % (0.0-2.0) 05/25/18 16:30 Sodium 140 mEq/L (136-145) 05/25/18 16:30 Potassium 3.9 mEq/L (3.5-5.1) 05/25/18 16:30 Chloride 105 mEq/L (98-107) 05/25/18 16:30 Carbon Dioxide 27.7 mEq/L (21.0-31.0) 05/25/18 16:30 Anion Gap 11.2 (7.0-16.0) 05/25/18 16:30 BUN 16 mg/dL (7-25) 05/25/18 16:30 Creatinine 0.9 mg/dL (0.7-1.3) 05/25/18 16:30 Est GFR ( Amer) TNP 05/25/18 16:30 Est GFR (Non-Af Amer) TNP 05/25/18 16:30 BUN/Creatinine Ratio 17.8 05/25/18 16:30 Glucose 94 mg/dL (70-105) 05/25/18 16:30 POC Glucose 94 MG/DL (70 - 105) 05/28/18 06:48 Whole Bld Lactic Acid 0.83 mmol/L (0.60-1.99) 05/25/18 16:30 Calcium 9.0 mg/dL (8.6-10.3) 05/25/18 16:30 Phosphorus 3.7 mg/dL (2.5-5.0) 05/25/18 16:30 Magnesium 2.1 mg/dL (1.9-2.7) 05/25/18 16:30 Total Bilirubin 0.3 mg/dL (0.3-1.0) 05/25/18 16:30 AST 19 U/L (13-39) 05/25/18 16:30 ALT 17 U/L (7-52) 05/25/18 16:30 Alkaline Phosphatase 58 U/L (34-104) 05/25/18 16:30 Troponin I 0.02 ng/mL (0.01-0.05) 05/25/18 16:30 Total Protein 6.4 gm/dL (6.0-8.3) 05/25/18 16:30 Albumin 3.7 gm/dL (4.2-5.5) L 05/25/18 16:30 Globulin 2.7 gm/dL 05/25/18 16:30 Albumin/Globulin Ratio 1.4 (1.0-1.8) 05/25/18 16:30 Triglycerides 62 mg/dL (<150) 05/25/18 16:30 Cholesterol 144 mg/dL (<200) 05/25/18 16:30 LDL Cholesterol Direct 91 mg/dL (75-193) 05/25/18 16:30 HDL Cholesterol 51 mg/dL (23-92) 05/25/18 16:30 TSH 0.69 uIU/ml (0.34-5.60) 05/25/18 16:30 Urine Source CLEAN C 05/25/18 19:30 Urine Color YELLOW 05/25/18 19:30 Urine Clarity CLEAR (CLEAR) 05/25/18 19:30 Urine pH 7.0 (4.6 - 8.0) 05/25/18 19:30 Ur Specific [place] 1.010 (1.005-1.030) 05/25/18 19:30 Urine Protein NEGATIVE mg/dL (NEGATIVE) 05/25/18 19:30 Urine Glucose (UA) NEGATIVE mg/dL (NEGATIVE) 05/25/18 19:30 Urine Ketones NEGATIVE mg/dL (NEGATIVE) 05/25/18 19:30 Urine Blood NEGATIVE (NEGATIVE) 05/25/18 19:30 Urine Nitrate NEGATIVE (NEGATIVE) 05/25/18 19:30 Urine Bilirubin NEGATIVE (NEGATIVE) 05/25/18 19:30 Urine Urobilinogen 0.2 E.U./dL (0.2 - 1.0) 05/25/18 19:30 Ur Leukocyte Esterase NEGATIVE (NEGATIVE) 05/25/18 19:30 Urine RBC NONE SEEN /hpf (0-5) 05/25/18 19:30 Urine WBC 0-2 /hpf (0-5) 05/25/18 19:30 Ur Epithelial Cells FEW /lpf (FEW) 05/25/18 19:30 Amorphous Sediment FEW PHOSPHATES (NONE SEEN) 05/25/18 19:30 Urine Bacteria FEW /hpf (NONE SEEN) 05/25/18 19:30 - Physical Exam Vitals and I&O: Vital Signs Temp 98.5 F 05/29/18 19:30 Pulse 81 05/29/18 19:30 Resp 18 05/29/18 19:46 BP 135/69 05/29/18 19:30 Pulse Ox 96 05/29/18 19:30 Intake & Output 05/29/18 05/29/18 05/30/18 06:59 18:59 06:59 Intake Total 1000 Balance 1000 Intake: Oral 1000 Other: # Voids 4 # Bowel Movements 1 Active Medications: Current Medications Al Hydrox/Mg Hydrox/Simethicone (Maalox) 30 ml PO Q6H PRN PRN Reason: GI DISTRESS Stop: 07/24/18 21:05 Allopurinol (Zyloprim) 300 mg PO DAILY [facility] Stop: 07/25/18 08:59 Last Admin: 05/29/18 08:24 Dose: 300 mg Aripiprazole (Abilify) 10 mg PO QAM [facility] Stop: 07/29/18 08:59 Docusate Sodium (Colace) 250 mg PO DAILY [facility] Stop: 07/25/18 08:59 Last Admin: 05/29/18 08:25 Dose: 250 mg Doxycycline Hyclate (Vibramycin) 100 mg PO Q12HR [facility] Stop: 06/01/18 21:00 Last Admin: 05/29/18 20:31 Dose: 100 mg Fluoxetine HCl (Prozac) 30 mg PO DAILY [facility] Stop: 07/28/18 08:59 Last Admin: 05/29/18 08:26 Dose: 30 mg Gabapentin (Neurontin) 100 mg PO TID [facility] Stop: 07/25/18 08:59 Last Admin: 05/29/18 20:31 Dose: 100 mg Glipizide (Glucotrol) 10 mg PO BID [facility] Stop: 07/25/18 08:59 Last Admin: 05/29/18 16:30 Dose: 10 mg Haloperidol Decanoate (Haldol Dec) 50 mg IM [id number] [facility] Stop: 08/02/18 09:59 Lorazepam (Ativan) 0.5 mg PO Q4HR PRN; Protocol PRN Reason: Anxiety Stop: 06/24/18 21:03 Last Admin: 05/28/18 21:20 Dose: 0.5 mg Magnesium Hydroxide (Milk Of Magnesia) 30 ml PO HS PRN PRN Reason: IF STOOL SOFTENERS INEFFECTIVE Stop: 07/24/18 21:05 Metformin HCl (Glucophage) 1,000 mg PO BIDBRS [facility] Stop: 07/25/18 07:59 Last Admin: 05/29/18 17:53 Dose: 1,000 mg Multivitamins/Vitamin C (Theragran) 1 tab PO DAILY [facility] Stop: 07/25/18 08:59 Last Admin: 05/29/18 08:24 Dose: 1 tab Pioglitazone HCl (Actos) 45 mg PO QDAC [facility] Stop: 07/25/18 07:29 Last Admin: 05/29/18 06:35 Dose: 45 mg Quetiapine Fumarate (Seroquel) 300 mg PO HS [facility]; Protocol Stop: 07/24/18 22:59 Last Admin: 05/29/18 20:31 Dose: 300 mg Quetiapine Fumarate (Seroquel) 50 mg PO DAILY [facility]; Protocol Stop: 07/29/18 08:59 Trihexyphenidyl HCl (Artane) 2 mg PO TID [facility] Stop: 07/25/18 08:59 Last Admin: 05/29/18 20:32 Dose: 2 mg Zolpidem Tartrate (Ambien) 5 mg PO HS PRN PRN Reason: Insomnia Stop: 07/24/18 21:03 Last Admin: 05/29/18 20:32 Dose: 5 mg General: demented HEENT: NC/AT, PERRLA, EOMI, anicteric sclerae, throat clear Neck: Supple, No JVD, No thyromegaly, +2 carotid pulse wo bruit, No LAD Lungs: CTAB Cardiovascular: RRR, Normal S1, Normal S2, without murmur Abdomen: soft, non-tender, non-distended Extremities: clear Neurological: no change - Procedures Procedures: Procedures Procedure Code Date BRONCHOSCOPY/LUNG BX EACH 93581 05/01/01 C.A.T. SCAN OF HEAD 87.03 09/16/95 CLOSED ENDOSCOPIC BIOPSY OF LUNG 33.27 05/01/01 DX BRONCHOSCOPE/BRUSH 74402 05/01/01 ELECTROCARDIOGRAPH MONIT 89.54 09/16/95 ENDOSCOPIC BRONCHIAL BX 33.24 05/01/01 EXC H-F-NK-SP B9+SADE 2.1-3 76001 08/08/99 GROUP PSYCHOTHERAPY 00476 12/15/01 NASAL LACERATION SUTURE 21.81 09/16/95 OTHER GROUP THERAPY 94.44 12/15/01 OTHER LOCAL DESTRUC SKIN 86.3 08/08/99 OXYGEN ENRICHMENT NEC 93.96 09/16/95 PHYSICAL THERAPY NEC 93.39 09/16/95 RPR F/E/E/N/L/M 2.5 CM/< 65543 09/16/95 Internal Medicine Assmt/Plan - Assessment Assessment: 1.DM. 2.PVD OF LOWER EXTR. 3.CONSTIPATION. 4.DEMENTIA. - Plan Plan: CONTINUE ON CURRENT MEDICATION AND DIET.
[2018-05-30] MEDS: Multivitamin Tab PO SCH (08:21)
--- NOTE | 2018-05-30 17:51 | Internal Medicine Prog Note ---
Internal Medicine Subjective - Subjective Service Date: 05/30/18 Patient seen and examined:: without staff Patient is:: awake, verbal, ambulating, talking, confused Per staff patient has:: no adverse event Internal Medicine Objective - Results Result Diagrams: 05/25/18 16:30 05/25/18 16:30 Recent Labs: Laboratory Last Values WBC 6.9 Th/cmm (4.8-10.8) 05/25/18 16:30 RBC 4.33 Mil/cmm (3.80-5.80) 05/25/18 16:30 Hgb 11.9 gm/dL (12-16) L 05/25/18 16:30 Hct 37.0 % (41.0-60) L 05/25/18 16:30 MCV 85.5 fl (80-99) 05/25/18 16:30 MCH 27.5 pg (27.0-31.0) 05/25/18 16:30 MCHC Differential 32.2 pg (28.0-36.0) 05/25/18 16:30 RDW 15.3 % (11.5-20.0) 05/25/18 16:30 Plt Count 254 Th/cmm (150-400) 05/25/18 16:30 MPV 6.9 fl 05/25/18 16:30 Neutrophils % 75.6 % (40.0-80.0) 05/25/18 16:30 Lymphocytes % 11.3 % (20.0-50.0) L 05/25/18 16:30 Monocytes % 10.9 % (2.0-10.0) H 05/25/18 16:30 Eosinophils % 1.8 % (0.0-5.0) 05/25/18 16:30 Basophils % 0.4 % (0.0-2.0) 05/25/18 16:30 Sodium 140 mEq/L (136-145) 05/25/18 16:30 Potassium 3.9 mEq/L (3.5-5.1) 05/25/18 16:30 Chloride 105 mEq/L (98-107) 05/25/18 16:30 Carbon Dioxide 27.7 mEq/L (21.0-31.0) 05/25/18 16:30 Anion Gap 11.2 (7.0-16.0) 05/25/18 16:30 BUN 16 mg/dL (7-25) 05/25/18 16:30 Creatinine 0.9 mg/dL (0.7-1.3) 05/25/18 16:30 Est GFR ( Amer) TNP 05/25/18 16:30 Est GFR (Non-Af Amer) TNP 05/25/18 16:30 BUN/Creatinine Ratio 17.8 05/25/18 16:30 Glucose 94 mg/dL (70-105) 05/25/18 16:30 POC Glucose 94 MG/DL (70 - 105) 05/28/18 06:48 Whole Bld Lactic Acid 0.83 mmol/L (0.60-1.99) 05/25/18 16:30 Calcium 9.0 mg/dL (8.6-10.3) 05/25/18 16:30 Phosphorus 3.7 mg/dL (2.5-5.0) 05/25/18 16:30 Magnesium 2.1 mg/dL (1.9-2.7) 05/25/18 16:30 Total Bilirubin 0.3 mg/dL (0.3-1.0) 05/25/18 16:30 AST 19 U/L (13-39) 05/25/18 16:30 ALT 17 U/L (7-52) 05/25/18 16:30 Alkaline Phosphatase 58 U/L (34-104) 05/25/18 16:30 Troponin I 0.02 ng/mL (0.01-0.05) 05/25/18 16:30 Total Protein 6.4 gm/dL (6.0-8.3) 05/25/18 16:30 Albumin 3.7 gm/dL (4.2-5.5) L 05/25/18 16:30 Globulin 2.7 gm/dL 05/25/18 16:30 Albumin/Globulin Ratio 1.4 (1.0-1.8) 05/25/18 16:30 Triglycerides 62 mg/dL (<150) 05/25/18 16:30 Cholesterol 144 mg/dL (<200) 05/25/18 16:30 LDL Cholesterol Direct 91 mg/dL (75-193) 05/25/18 16:30 HDL Cholesterol 51 mg/dL (23-92) 05/25/18 16:30 TSH 0.69 uIU/ml (0.34-5.60) 05/25/18 16:30 Urine Source CLEAN C 05/25/18 19:30 Urine Color YELLOW 05/25/18 19:30 Urine Clarity CLEAR (CLEAR) 05/25/18 19:30 Urine pH 7.0 (4.6 - 8.0) 05/25/18 19:30 Ur Specific [place] 1.010 (1.005-1.030) 05/25/18 19:30 Urine Protein NEGATIVE mg/dL (NEGATIVE) 05/25/18 19:30 Urine Glucose (UA) NEGATIVE mg/dL (NEGATIVE) 05/25/18 19:30 Urine Ketones NEGATIVE mg/dL (NEGATIVE) 05/25/18 19:30 Urine Blood NEGATIVE (NEGATIVE) 05/25/18 19:30 Urine Nitrate NEGATIVE (NEGATIVE) 05/25/18 19:30 Urine Bilirubin NEGATIVE (NEGATIVE) 05/25/18 19:30 Urine Urobilinogen 0.2 E.U./dL (0.2 - 1.0) 05/25/18 19:30 Ur Leukocyte Esterase NEGATIVE (NEGATIVE) 05/25/18 19:30 Urine RBC NONE SEEN /hpf (0-5) 05/25/18 19:30 Urine WBC 0-2 /hpf (0-5) 05/25/18 19:30 Ur Epithelial Cells FEW /lpf (FEW) 05/25/18 19:30 Amorphous Sediment FEW PHOSPHATES (NONE SEEN) 05/25/18 19:30 Urine Bacteria FEW /hpf (NONE SEEN) 05/25/18 19:30 - Physical Exam Vitals and I&O: Vital Signs Temp 98.2 F 05/30/18 14:00 Pulse 73 05/30/18 14:00 Resp 18 05/30/18 14:00 BP 121/66 05/30/18 14:00 Pulse Ox 97 05/30/18 14:00 Intake & Output 05/29/18 05/30/18 05/30/18 18:59 06:59 18:59 Intake Total 1000 Balance 1000 Intake: Oral 1000 Other: # Voids 4 # Bowel Movements 1 Active Medications: Current Medications Al Hydrox/Mg Hydrox/Simethicone (Maalox) 30 ml PO Q6H PRN PRN Reason: GI DISTRESS Stop: 07/24/18 21:05 Allopurinol (Zyloprim) 300 mg PO DAILY ON [facility] OF [facility] Stop: 07/25/18 08:59 Last Admin: 05/30/18 08:20 Dose: 300 mg Docusate Sodium (Colace) 250 mg PO DAILY [facility] Stop: 07/25/18 08:59 Last Admin: 05/30/18 08:21 Dose: 250 mg Doxycycline Hyclate (Vibramycin) 100 mg PO Q12HR [facility] Stop: 06/01/18 21:00 Last Admin: 05/30/18 08:21 Dose: 100 mg Fluoxetine HCl (Prozac) 30 mg PO DAILY [facility] Stop: 07/28/18 08:59 Last Admin: 05/30/18 08:20 Dose: 30 mg Gabapentin (Neurontin) 100 mg PO TID [facility] Stop: 07/25/18 08:59 Last Admin: 05/30/18 13:27 Dose: 100 mg Glipizide (Glucotrol) 10 mg PO BID [facility] Stop: 07/25/18 08:59 Last Admin: 05/30/18 16:20 Dose: 10 mg Haloperidol Decanoate (Haldol Dec) 50 mg IM [id number] ON [facility] OF [facility] Stop: 08/02/18 09:59 Lorazepam (Ativan) 0.5 mg PO Q4HR PRN; Protocol PRN Reason: Anxiety Stop: 06/24/18 21:03 Last Admin: 05/29/18 23:22 Dose: 0.5 mg Magnesium Hydroxide (Milk Of Magnesia) 30 ml PO HS PRN PRN Reason: IF STOOL SOFTENERS INEFFECTIVE Stop: 07/24/18 21:05 Metformin HCl (Glucophage) 1,000 mg PO BIDBRS ON LICENSE OF [facility] Stop: 07/25/18 07:59 Last Admin: 05/30/18 08:21 Dose: 1,000 mg Multivitamins/Vitamin C (Theragran) 1 tab PO DAILY [facility] Stop: 07/25/18 08:59 Last Admin: 05/30/18 08:21 Dose: 1 tab Pioglitazone HCl (Actos) 45 mg PO QDAC [facility] Stop: 07/25/18 07:29 Last Admin: 05/30/18 07:01 Dose: 45 mg Quetiapine Fumarate (Seroquel) 300 mg PO HS ON [facility] OF [facility]; Protocol Stop: 07/24/18 22:59 Last Admin: 05/29/18 20:31 Dose: 300 mg Quetiapine Fumarate (Seroquel) 50 mg PO DAILY [facility]; Protocol Stop: 07/29/18 08:59 Last Admin: 05/30/18 08:21 Dose: 50 mg Trihexyphenidyl HCl (Artane) 2 mg PO TID [facility] Stop: 07/25/18 08:59 Last Admin: 05/30/18 13:27 Dose: 2 mg Zolpidem Tartrate (Ambien) 5 mg PO HS PRN PRN Reason: Insomnia Stop: 07/24/18 21:03 Last Admin: 05/29/18 20:32 Dose: 5 mg General: demented HEENT: NC/AT, PERRLA, EOMI, anicteric sclerae, throat clear Neck: Supple, No JVD, No thyromegaly, +2 carotid pulse wo bruit, No LAD Lungs: CTAB Cardiovascular: RRR, Normal S1, Normal S2, without murmur Abdomen: soft, non-tender, non-distended Extremities: clear Neurological: no change - Procedures Procedures: Procedures Procedure Code Date BRONCHOSCOPY/LUNG BX EACH 38549 05/01/01 C.A.T. SCAN OF HEAD 87.03 09/16/95 CLOSED ENDOSCOPIC BIOPSY OF LUNG 33.27 05/01/01 DX BRONCHOSCOPE/BRUSH 05874 05/01/01 ELECTROCARDIOGRAPH MONIT 89.54 09/16/95 ENDOSCOPIC BRONCHIAL BX 33.24 05/01/01 EXC H-F-NK-SP B9+SADE 2.1-3 74066 08/08/99 GROUP PSYCHOTHERAPY 85635 12/15/01 NASAL LACERATION SUTURE 21.81 09/16/95 OTHER GROUP THERAPY 94.44 12/15/01 OTHER LOCAL DESTRUC SKIN 86.3 08/08/99 OXYGEN ENRICHMENT NEC 93.96 09/16/95 PHYSICAL THERAPY NEC 93.39 09/16/95 RPR F/E/E/N/L/M 2.5 CM/< 80774 09/16/95 Internal Medicine Assmt/Plan - Assessment Assessment: 1.DM. 2.PVD OF LOWER EXTR. 3.CONSTIPATION. 4.DEMENTIA. - Plan Plan: CONTINUE ON CURRENT MEDICATION AND DIET. Nutritional Asmnt/Malnutr-PDOC - Dietary Evaluation Malnutrition Findings (Please click <Entered> for more info): Nutritional Asmnt/Malnutrition Start: 05/30/18 13: 38 Text: Status: Complete Freq: Protocol: Document 05/30/18 13:39 MICKY (Rec: 05/30/18 13:47 [id number]) Nutritional Asmnt/Malnutrition Patient General Information Nutritional Screening Moderate Risk Diagnosis Increased Agitation Pertinent Medical Hx/Surgical Hx DM, Gouty Arthritis, Dementia, Psychosis Subjective Information Pt was awake. Was answering food likes / dislikes questions with nods and some speech. Indicated he did not like fish but liked Cream of Wheat. Nurse indicated that he does not ask for snacks in between meals. Is tolerating Pureed diet. Current Diet Order/ Nutrition Support Pureed Pertinent Medications Maalox, Docusate, Glipizide, MOM, Metformin, Multivitamin, Pioglitazone, Ambien Pertinent Labs (05/30) Hb 11.9, Alb 3.7 Nutritional Hx/Data Height 1.68 m Height (Calculated Centimeters) 167.6 Current Weight (lbs) 61.689 kg Weight (Calculated Kilograms) 61.7 Weight (Calculated Grams) 56999.6 [place] Body Weight 142 % [place] Body Weight 96 Body Mass Index (BMI) 21.9 Weight Status Approriate GI Symptoms GI Symptoms None Difficult in: Chewing Food Allergies No Cultural/Ethnic/Mu-Ism Belief None indicated Skin Integrity/Comment: Michael Score 20 Current %PO Good (75-100%) Estimated Nutritional Goals BEE in Kcals: Using Current wt Calories/Kcals/Kg 25-30 Kcals Calculated 9439-6418 Protein: Using Current wt Protein g/k.8-1 Protein Calculated 50-62 Fluid: ml 8743-5687 Nutritional Problem No current Nutrition Prob Problem No current Nutritional Problem Malnutrition Alert Is there a minimum of two criteria No selected? Query Text:Check all the applicable criteria. A minimum of two criteria are recommended for diagnosis of either severe or non-severe malnutrition. Malnutrition Related to Morbid Obesity Malnutrition related to morbid obesity No Intervention/Recommendation Comments No Recomended changes at this time. Expected Outcomes/Goals Expected Outcomes/Goals 1. Maintain ~100% PO intake 2. F/U in 7 days as LR
--- NOTE | 2018-05-31 01:04 | Progress Notes ---
DATE: 05/30/2018 SUMMARY: Case was discussed with staff of the patient. The patient continues to be disorganized, looking disheveled, internally preoccupied, at times paranoid, talking to himself. He sleeps well and eats well. I did increase his Seroquel dose to 50 mg a day and I am tapering him off the Abilify. He is compliant with the medication with no side effects, no sedation, no nausea, and no extrapyramidal symptoms. I will be discontinuing the Abilify on this patient since he is taking two other antipsychotic and he was not doing well on a high dose of Abilify. No side effects with the medication, no sedation, no nausea, and no extrapyramidal symptoms. We will continue to work with the patient in group therapy, milieu therapy, and adjust the medication as needed. JOB# [id number]
[2018-05-31] MEDS: Multivitamin Tab PO SCH (08:52)
--- NOTE | 2018-05-31 21:12 | Progress Notes ---
DATE: 05/31/2018 SUBJECTIVE: Case was discussed with staff of the patient, reviewed records. The patient continues to be talking to himself, looking disheveled, disorganized, and internally preoccupied. He continues to have poor insight. I tried to take him off Abilify. He is currently only on Seroquel 300 mg at bedtime and 50 mg daily as well as Haldol Decanoate 50 mg every 2 weeks and Prozac 30 mg daily with no side effects, no sedation or nausea, and no extrapyramidal symptoms. We will continue to work with the patient in group therapy, milieu therapy, and adjust the medications as needed. JOB# [id number]
--- NOTE | 2018-05-31 22:48 | Internal Medicine Prog Note ---
Internal Medicine Subjective - Subjective Service Date: 05/31/18 Patient seen and examined:: with staff Patient is:: awake, verbal, ambulating, talking, confused Per staff patient has:: no adverse event Internal Medicine Objective - Results Result Diagrams: 05/25/18 16:30 05/25/18 16:30 Recent Labs: Laboratory Last Values WBC 6.9 Th/cmm (4.8-10.8) 05/25/18 16:30 RBC 4.33 Mil/cmm (3.80-5.80) 05/25/18 16:30 Hgb 11.9 gm/dL (12-16) L 05/25/18 16:30 Hct 37.0 % (41.0-60) L 05/25/18 16:30 MCV 85.5 fl (80-99) 05/25/18 16:30 MCH 27.5 pg (27.0-31.0) 05/25/18 16:30 MCHC Differential 32.2 pg (28.0-36.0) 05/25/18 16:30 RDW 15.3 % (11.5-20.0) 05/25/18 16:30 Plt Count 254 Th/cmm (150-400) 05/25/18 16:30 MPV 6.9 fl 05/25/18 16:30 Neutrophils % 75.6 % (40.0-80.0) 05/25/18 16:30 Lymphocytes % 11.3 % (20.0-50.0) L 05/25/18 16:30 Monocytes % 10.9 % (2.0-10.0) H 05/25/18 16:30 Eosinophils % 1.8 % (0.0-5.0) 05/25/18 16:30 Basophils % 0.4 % (0.0-2.0) 05/25/18 16:30 Sodium 140 mEq/L (136-145) 05/25/18 16:30 Potassium 3.9 mEq/L (3.5-5.1) 05/25/18 16:30 Chloride 105 mEq/L (98-107) 05/25/18 16:30 Carbon Dioxide 27.7 mEq/L (21.0-31.0) 05/25/18 16:30 Anion Gap 11.2 (7.0-16.0) 05/25/18 16:30 BUN 16 mg/dL (7-25) 05/25/18 16:30 Creatinine 0.9 mg/dL (0.7-1.3) 05/25/18 16:30 Est GFR ( Amer) TNP 05/25/18 16:30 Est GFR (Non-Af Amer) TNP 05/25/18 16:30 BUN/Creatinine Ratio 17.8 05/25/18 16:30 Glucose 94 mg/dL (70-105) 05/25/18 16:30 POC Glucose 94 MG/DL (70 - 105) 05/28/18 06:48 Whole Bld Lactic Acid 0.83 mmol/L (0.60-1.99) 05/25/18 16:30 Calcium 9.0 mg/dL (8.6-10.3) 05/25/18 16:30 Phosphorus 3.7 mg/dL (2.5-5.0) 05/25/18 16:30 Magnesium 2.1 mg/dL (1.9-2.7) 05/25/18 16:30 Total Bilirubin 0.3 mg/dL (0.3-1.0) 05/25/18 16:30 AST 19 U/L (13-39) 05/25/18 16:30 ALT 17 U/L (7-52) 05/25/18 16:30 Alkaline Phosphatase 58 U/L (34-104) 05/25/18 16:30 Troponin I 0.02 ng/mL (0.01-0.05) 05/25/18 16:30 Total Protein 6.4 gm/dL (6.0-8.3) 05/25/18 16:30 Albumin 3.7 gm/dL (4.2-5.5) L 05/25/18 16:30 Globulin 2.7 gm/dL 05/25/18 16:30 Albumin/Globulin Ratio 1.4 (1.0-1.8) 05/25/18 16:30 Triglycerides 62 mg/dL (<150) 05/25/18 16:30 Cholesterol 144 mg/dL (<200) 05/25/18 16:30 LDL Cholesterol Direct 91 mg/dL (75-193) 05/25/18 16:30 HDL Cholesterol 51 mg/dL (23-92) 05/25/18 16:30 TSH 0.69 uIU/ml (0.34-5.60) 05/25/18 16:30 Urine Source CLEAN C 05/25/18 19:30 Urine Color YELLOW 05/25/18 19:30 Urine Clarity CLEAR (CLEAR) 05/25/18 19:30 Urine pH 7.0 (4.6 - 8.0) 05/25/18 19:30 Ur Specific [place] 1.010 (1.005-1.030) 05/25/18 19:30 Urine Protein NEGATIVE mg/dL (NEGATIVE) 05/25/18 19:30 Urine Glucose (UA) NEGATIVE mg/dL (NEGATIVE) 05/25/18 19:30 Urine Ketones NEGATIVE mg/dL (NEGATIVE) 05/25/18 19:30 Urine Blood NEGATIVE (NEGATIVE) 05/25/18 19:30 Urine Nitrate NEGATIVE (NEGATIVE) 05/25/18 19:30 Urine Bilirubin NEGATIVE (NEGATIVE) 05/25/18 19:30 Urine Urobilinogen 0.2 E.U./dL (0.2 - 1.0) 05/25/18 19:30 Ur Leukocyte Esterase NEGATIVE (NEGATIVE) 05/25/18 19:30 Urine RBC NONE SEEN /hpf (0-5) 05/25/18 19:30 Urine WBC 0-2 /hpf (0-5) 05/25/18 19:30 Ur Epithelial Cells FEW /lpf (FEW) 05/25/18 19:30 Amorphous Sediment FEW PHOSPHATES (NONE SEEN) 05/25/18 19:30 Urine Bacteria FEW /hpf (NONE SEEN) 05/25/18 19:30 - Physical Exam Vitals and I&O: Vital Signs Temp 98.0 F 05/31/18 14:00 Pulse 90 05/31/18 14:00 Resp 19 05/31/18 14:00 BP 135/73 05/31/18 14:00 Pulse Ox 98 05/31/18 14:00 Active Medications: Current Medications Al Hydrox/Mg Hydrox/Simethicone (Maalox) 30 ml PO Q6H PRN PRN Reason: GI DISTRESS Stop: 07/24/18 21:05 Allopurinol (Zyloprim) 300 mg PO DAILY [facility] Stop: 07/25/18 08:59 Last Admin: 05/31/18 08:52 Dose: 300 mg Docusate Sodium (Colace) 250 mg PO DAILY [facility] Stop: 07/25/18 08:59 Last Admin: 05/31/18 08:52 Dose: 250 mg Fluoxetine HCl (Prozac) 30 mg PO DAILY [facility] Stop: 07/28/18 08:59 Last Admin: 05/31/18 17:03 Dose: Not Given Gabapentin (Neurontin) 100 mg PO TID [facility] Stop: 07/25/18 08:59 Last Admin: 05/31/18 20:24 Dose: 100 mg Glipizide (Glucotrol) 10 mg PO BID [facility] Stop: 07/25/18 08:59 Last Admin: 05/31/18 17:02 Dose: 10 mg Haloperidol Decanoate (Haldol Dec) 50 mg IM [id number] [facility] Stop: 08/02/18 09:59 Lorazepam (Ativan) 0.5 mg PO Q4HR PRN; Protocol PRN Reason: Anxiety Stop: 06/24/18 21:03 Last Admin: 05/31/18 20:24 Dose: 0.5 mg Magnesium Hydroxide (Milk Of Magnesia) 30 ml PO HS PRN PRN Reason: IF STOOL SOFTENERS INEFFECTIVE Stop: 07/24/18 21:05 Metformin HCl (Glucophage) 1,000 mg PO BIDBRS [facility] Stop: 07/25/18 07:59 Last Admin: 05/31/18 17:02 Dose: 1,000 mg Multivitamins/Vitamin C (Theragran) 1 tab PO DAILY [facility] Stop: 07/25/18 08:59 Last Admin: 05/31/18 08:52 Dose: 1 tab Pioglitazone HCl (Actos) 45 mg PO QDAC [facility] Stop: 07/25/18 07:29 Last Admin: 05/31/18 06:50 Dose: 45 mg Quetiapine Fumarate (Seroquel) 300 mg PO HS [facility]; Protocol Stop: 07/24/18 22:59 Last Admin: 05/31/18 20:24 Dose: 300 mg Quetiapine Fumarate (Seroquel) 50 mg PO DAILY [facility]; Protocol Stop: 07/29/18 08:59 Last Admin: 05/31/18 08:52 Dose: 50 mg Trihexyphenidyl HCl (Artane) 2 mg PO TID [facility] Stop: 07/25/18 08:59 Last Admin: 01/13/19 20:24 Dose: 2 mg Zolpidem Tartrate (Ambien) 5 mg PO HS PRN PRN Reason: Insomnia Stop: 07/24/18 21:03 Last Admin: 05/31/18 20:24 Dose: 5 mg General: demented HEENT: NC/AT, PERRLA, EOMI, anicteric sclerae, throat clear Neck: Supple, No JVD, No thyromegaly, +2 carotid pulse wo bruit, No LAD Lungs: CTAB Cardiovascular: RRR, Normal S1, Normal S2, without murmur Abdomen: soft, non-tender, non-distended Extremities: clear Neurological: no change - Procedures Procedures: Procedures Procedure Code Date BRONCHOSCOPY/LUNG BX EACH 04328 05/01/01 C.A.T. SCAN OF HEAD 87.03 09/16/95 CLOSED ENDOSCOPIC BIOPSY OF LUNG 33.27 05/01/01 DX BRONCHOSCOPE/BRUSH 49479 05/01/01 ELECTROCARDIOGRAPH MONIT 89.54 09/16/95 ENDOSCOPIC BRONCHIAL BX 33.24 05/01/01 EXC H-F-NK-SP B9+SADE 2.1-3 85112 08/08/99 GROUP PSYCHOTHERAPY 14797 12/15/01 NASAL LACERATION SUTURE 21.81 09/16/95 OTHER GROUP THERAPY 94.44 12/15/01 OTHER LOCAL DESTRUC SKIN 86.3 08/08/99 OXYGEN ENRICHMENT NEC 93.96 09/16/95 PHYSICAL THERAPY NEC 93.39 09/16/95 RPR F/E/E/N/L/M 2.5 CM/< 77409 09/16/95 Internal Medicine Assmt/Plan - Assessment Assessment: 1.DM. 2.PVD OF LOWER EXTR. 3.CONSTIPATION. 4.DEMENTIA. - Plan Plan: CONTINUE ON CURRENT MEDICATION AND DIET. Nutritional Asmnt/Malnutr-PDOC - Dietary Evaluation Malnutrition Findings (Please click <Entered> for more info): Nutritional Asmnt/Malnutrition Start: 05/30/18 13: 38 Text: Status: Complete Freq: Protocol: Document 05/30/18 13:39 RHAQUE (Rec: 05/30/18 13:47 RHAQUE [id number]) Nutritional Asmnt/Malnutrition Patient General Information Nutritional Screening Moderate Risk Diagnosis Increased Agitation Pertinent Medical Hx/Surgical Hx DM, Gouty Arthritis, Dementia, Psychosis Subjective Information Pt was awake. Was answering food likes / dislikes questions with nods and some speech. Indicated he did not like fish but liked Cream of Wheat. Nurse indicated that he does not ask for snacks in between meals. Is tolerating Pureed diet. Current Diet Order/ Nutrition Support Pureed Pertinent Medications Maalox, Docusate, Glipizide, MOM, Metformin, Multivitamin, Pioglitazone, Ambien Pertinent Labs (05/30) Hb 11.9, Alb 3.7 Nutritional Hx/Data Height 1.68 m Height (Calculated Centimeters) 167.6 Current Weight (lbs) 61.689 kg Weight (Calculated Kilograms) 61.7 Weight (Calculated Grams) 02477.6 Parsons Body Weight 142 % Parsons Body Weight 96 Body Mass Index (BMI) 21.9 Weight Status Approriate GI Symptoms GI Symptoms None Difficult in: Chewing Food Allergies No Cultural/Ethnic/Mu-Ism Belief None indicated Skin Integrity/Comment: Michael Score 20 Current %PO Good (75-100%) Estimated Nutritional Goals BEE in Kcals: Using Current wt Calories/Kcals/Kg 25-30 Kcals Calculated 5113-5881 Protein: Using Current wt Protein g/k.8-1 Protein Calculated 50-62 Fluid: ml [id number] Nutritional Problem No current Nutrition Prob Problem No current Nutritional Problem Malnutrition Alert Is there a minimum of two criteria No selected? Query Text:Check all the applicable criteria. A minimum of two criteria are recommended for diagnosis of either severe or non-severe malnutrition. Malnutrition Related to Morbid Obesity Malnutrition related to morbid obesity No Intervention/Recommendation Comments No Recomended changes at this time. Expected Outcomes/Goals Expected Outcomes/Goals 1. Maintain ~100% PO intake 2. F/U in 7 days as LR
[2018-06-01] MEDS: Multivitamin Tab PO SCH (08:56)
--- NOTE | 2018-06-02 06:43 | Discharge Summary ---
DATE OF DISCHARGE: 06/01/2018 PATIENT'S AGE: 71. SEX: Female. PHYSICIAN: Dr. Ji. FINAL DIAGNOSES/PRIMARY DIAGNOSES: Schizoaffective disorder, bipolar type, severe, with psychotic features. REASON FOR HOSPITALIZATION: The [facility] was [facility] because of increased agitation and aggressive behavior in [facility]. The patient also was talking to himself and was physically aggressive for 3 days. HOSPITAL COURSE: The patient continued to be aggressive and irritable mood. The patient also was restless and was anxious. The patient also was interacting minimally with others. The patient was given Prozac and the dose adjusted to 30 mg every day and gabapentin in a dose of 100 mg 3 times a day, also is getting Haldol, Decanoate injection once every 2 weeks. Gradually, the patient was calmer and his affect was brighter. The patient also notes irritable, less agitated. Also is compliant with taking medications including Seroquel 50 mg in the morning and 300 mg at bedtime. The patient was accepted back to [place]. Physical exam of the patient shows no major medical problems. AFTER DISCHARGE PLANS: The patient was discharged from the hospital and went back to the [facility] with plans for followup there. EXPECTED OUTCOME AFTER DISCHARGE: Fair if the patient continued to take his medication and follow up with discharge plans. [facility]# [id number]
== END 2018-06-01 17:30 | DRG 885 ==
LOC: ER 15:47 → GERO2 20:05 → EDBD 20:05 → GERO2 05-30 17:54
PROVIDERS: ADMIT Psychiatry & Neurology Psychiatry; ATTEND Psychiatry & Neurology Psychiatry
DX: F25.0 Schizoaffective disorder, bipolar type (principal); F03.90 Unspecified dementia, unspecified severity, without behavioral disturbance, psychotic disturbance, mood disturbance, and anxiety; E11.42 Type 2 diabetes mellitus with diabetic polyneuropathy; M10.9 Gout, unspecified; K59.09 Other constipation; E11.51 Type 2 diabetes mellitus with diabetic peripheral angiopathy without gangrene; D64.9 Anemia, unspecified; F29 Unspecified psychosis not due to a substance or known physiological condition; Z88.0 Allergy status to penicillin; Z88.8 Allergy status to other drugs, medicaments and biological substances
CPT/HCPCS: 36415-UA; 71046-TC; 80053-TC; 80061-TC; 81001-TC; 82948-90; 83036-90; 83605; 83735-TC; 84100-TC; 84443-TC; 84484-TC; 85025-TC; 93005; Z7610